=== PATIENT | female | born 1960 | race Caucasian/White ===

== ENCOUNTER 2017-08-30 00:51 | Observation (INO) | payer BC ==
[2017-08-30] VITALS (7 sets, daily range): BP systolic 123–185; BP diastolic 82–112; PULSE 83–102; RESP 16–18; TEMP 97.4–97.9; O2SAT 95–98
[~2017-08-30] VITALS: Ht 172.7 cm; Wt 63.5 kg
[2017-08-30] MEDS ORDERED: VIST50CA PO (01:11)
[2017-08-30] MEDS ORDERED: SONA10CA5 PO (01:11)
[2017-08-30] MEDS ORDERED: GABA600T PO (01:11)
[2017-08-30] MEDS ORDERED: SODIUM CHLORIDE 0.9% FLUSH 10 ML FLUSH IVF PRN (01:30)
[2017-08-30] MEDS ORDERED: NITROGLYCERIN 0.4 MG SL 25 TABS/BTL SL ONE (01:30)
[2017-08-30] MEDS ORDERED: ASPIRIN 81 MG CHEW TAB PO ONE (01:30)
--- NOTE | 2017-08-30 01:35 | PD ---
HPI Chief Complaint: Chest Pain Time Seen by Provider: 01:16 Travel History International Travel<30 days: No Contact w/Intl Traveler<30days: No Traveled to known affect area: No History of Present Illness HPI The patient is a 57 year old female who presents to the [facility] emergency department with a history of chest pain that suddenly began around 9 PM today. She reports that she's had chest pain in the past related to anxiety , however this "felt unique compared to that". The patient reports that the chest pain is in the left side of her chest. She reports that it does not radiate. She reports that the pain was more severe and then slightly improved on arrival to the emergency department. She reports having shortness of breath associated with this. She denies having any diaphoresis. She reports that she did have nausea and vomiting 2 prior to arrival. The patient reports that she does have a history of hypertension and hyperlipidemia. She reports that she has not been taking her Lipitor recently. She reports that she last had a stress test done a few years ago. The patient additionally reports that she has been experiencing some indigestion. The patient incidentally also reports that she has a history of alcohol use for the first use time and 7 months over the last 48 hours. She reports that she relapsed related to increased family stress. She also took sleeping pills however she is unsure how many. On further questioning, she suspect that she has been taking up to 4 tablets of Sonata to try to help her sleep at night. She denies attempting to harm herself , however she does report having increased anxiety and depression and is interested in seeing a psychiatrist. She reports that she's had increased depression and anxiety for the last 90 days related to family stressors. He reports that she has been hospitalized in the past to a psychiatric unit related to anxiety. On arrival, the patient reports that her chest pain as a 4 out of 10 in severity. On review of systems, the patient denies any recent fevers, cough, congestion, neck pain,, abdominal pain, diarrhea, urinary symptoms, or neurologic symptoms. Dr. Sellers is her psychiatric nurse practitioner. [facility] Past Medical History Narrative Medical The patient's past medical history is significant for anxiety, insomnia, alcohol abuse, hypertension, hyperlipidemia. Depression: Yes Diminished Hearing: No Hypertension: Yes Past Surgical History Narrative Surgical The patient's past surgical history is significant for x3. Section: Yes (X3) Social History Alcohol Use: Yes (HX OF ETOH ABUSE. DRANK TONIGHT) Tobacco Use: No Substance Use: No Allergies-Medications (Allergen,Severity, Reaction): Coded Allergies: Penicillins (Verified Allergy, Mild, Hives, 08/30/17) Reported Meds & Prescriptions Reported Meds & Active Scripts Active Reported Gabapentin 600 Mg Tab 600 Mg PO BID Sonata (Zaleplon) 10 Mg Cap 10 Mg PO HS PRN Vistaril (Hydroxyzine Pamoate) 50 Mg Cap 100 Mg PO BID PRN Review of Systems Except as stated in HPI: all other systems reviewed are Neg General / Constitutional: No: Fever Eyes: No: Visual changes HENT: No: Headaches Cardiovascular: Positive: Chest Pain or Discomfort Respiratory: Positive: Shortness of Breath Gastrointestinal: Positive: Nausea, Vomiting, No: Abdominal Pain Genitourinary: No: Dysuria Musculoskeletal: No: Pain Skin: No Rash Neurologic: No: Weakness Psychiatric: Positive: Anxiety, Depression, Mood Disorder, Substance Abuse, No : Suicidal Ideations, Homicidal Ideation Endocrine: No: Polydipsia Hematologic/Lymphatic: No: Easy Bruising Physical Exam Narrative General: The patient is a well-developed well-nourished female in no acute distress. Head and Neck exam: Head is normocephalic atraumatic. Eyes: EOMI, pupils are equal round and reactive to light. Nose: Midline septum with pink mucous membranes Mouth: Dentition unremarkable. Moist mucus membranes. Posterior oropharynx is not erythematous. No tonsillar hypertrophy. Uvula midline. Airway patent. Neck: No palpable lymphadenopathy. No nuchal rigidity. No thyromegaly. Cardiovascular: Regular rate and rhythm without murmurs, gallops, or rubs. Lungs: Clear to auscultation bilaterally. No wheezes, rhonchi, or rales. Abdomen: Soft, without tenderness to palpation in all 4 quadrants of the abdomen. No guarding, rebound, or rigidity. Normal bowel sounds are audible. No tenderness on palpation of McBurney's point. Extremities: No clubbing, cyanosis, or edema. 2+ pulses in all 4 extremities. No calf tenderness on palpation. Back: No spinous process tenderness to palpation. No costovertebral angle tenderness to palpation. Neurologic Exam: Grossly nonfocal. Skin Exam: No rash noted. Intact skin that is warm and dry. Data Data Last Documented VS Vital Signs Date Time Temp Pulse Resp B/P (MAP) Pulse Ox O2 Delivery O2 Flow Rate FiO2 08/30/17 00:51 97.8 102 16 124/96 (105) 95 Room Air Orders Orders Electrocardiogram (08/30/17 01:21) B-Type Natriuretic Peptide (08/30/17 01:21) Ckmb (Isoenzyme) Profile (08/30/17 01:21) Complete Blood Count With Diff (08/30/17 01:21) Comprehensive Metabolic Panel (08/30/17:21) Magnesium (Mg) (08/30/17:21) Prothrombin Time / Inr (Pt) (08/30/17:21) Act Partial Throm Time (Ptt) (08/30/17:21) Troponin I (08/30/17:21) Lipase (08/30/17 01:21) Chest, Single Ap (08/30/17:21) Ecg Monitoring (08/30/17 01:21) Bilateral Bp Monitoring (08/30/17 01:21) Iv Access Insert/Monitor (08/30/17 01:21) Oximetry (08/30/17 01:21) Oxygen Administration (08/30/17 01:21) Aspirin Chew (Aspirin Chew) (08/30/17 01:30) Sodium Chloride 0.9% Flush (Ns Flush) (08/30/17 01:30) Nitroglycerin Sl (Nitrostat Sl) (08/30/17 01:30) CKMB (08/30/17 01:25) CKMB% (08/30/17 01:25) Chlordiazepoxide (Librium) (08/30/17 03:00) Pantoprazole Inj (Protonix Inj) (08/30/17 03:15) Sodium Chlor 0.9% 1000 Ml Inj (Ns 1000 M (08/30/17 03:15) Ondansetron Inj (Zofran Inj) (08/30/17 03:15) Thiamine Inj (Thiamine Inj) (08/30/17 03:15) Admit Order (Ed Use Only) (08/30/17 03:40) Consult Psychiatry (08/30/17 ) Labs Laboratory Tests Test 08/30/17 01:25 White Blood Count 8.9 TH/MM3 Red Blood Count 4.68 MIL/MM3 Hemoglobin 13.7 GM/DL Hematocrit 41.1 % Mean Corpuscular Volume 87.7 FL Mean Corpuscular Hemoglobin 29.2 PG Mean Corpuscular Hemoglobin Concent 33.3 % Red Cell Distribution Width 14.8 % Platelet Count 423 TH/MM3 Mean Platelet Volume 7.3 FL Neutrophils (%) (Auto) 66.4 % Lymphocytes (%) (Auto) 27.1 % Monocytes (%) (Auto) 4.4 % Eosinophils (%) (Auto) 1.0 % Basophils (%) (Auto) 1.1 % Neutrophils # (Auto) 5.9 TH/MM3 Lymphocytes # (Auto) 2.4 TH/MM3 Monocytes # (Auto) 0.4 TH/MM3 Eosinophils # (Auto) 0.1 TH/MM3 Basophils # (Auto) 0.1 TH/MM3 CBC Comment DIFF FINAL Differential Comment Prothrombin Time 10.6 SEC Prothromb Time International Ratio 1.0 RATIO Activated Partial Thromboplast Time 25.2 SEC Blood Urea Nitrogen 13 MG/DL Creatinine 0.80 MG/DL Random Glucose 107 MG/DL Total Protein 8.4 GM/DL Albumin 4.2 GM/DL Calcium Level 8.6 MG/DL Magnesium Level 2.3 MG/DL Alkaline Phosphatase 82 U/L Aspartate Amino Transf (AST/SGOT) 26 U/L Alanine Aminotransferase (ALT/SGPT) 25 U/L Total Bilirubin 0.4 MG/DL Sodium Level 136 MEQ/L Potassium Level 4.9 MEQ/L Chloride Level 102 MEQ/L Carbon Dioxide Level 25.6 MEQ/L Anion Gap 8 MEQ/L Estimat Glomerular Filtration Rate 74 ML/MIN Total Creatine Kinase 124 U/L Creatine Kinase MB LESS THAN 0.5 NG/ML Troponin I LESS THAN 0.02 NG/ML B-Type Natriuretic Peptide LESS THAN 2 PG/ML Lipase 97 U/L MDM Medical Decision Making Medical Screen Exam Complete: Yes Emergency Medical Condition: Yes Medical Record Reviewed: Yes Differential Diagnosis Acute coronary syndrome, versus gastritis, versus acid reflux, versus anxiety disorder Narrative Course During the course of the patients emergency department visit, the patients history, examination, and differential diagnosis were reviewed with the patient. The patient was placed on a cardiac cath rn with oximetry and frequent blood pressure monitoring. The patient had IV access obtained and blood work sent for analysis. The patient's placed on a cardiac cath rn with oximetry and blood pressure monitoring. An ECG was done on arrival. The patient's ECG reveals a sinus rhythm heart rate of 95, no acute ST segment elevation or depression, QRS duration is 86 ms, QTC 401 ms. The patient was initially provided aspirin 324 mg by mouth 1, sublingual nitroglycerin times one. The patient reports feeling anxious. The patient was given Librium 25 mg by mouth 1. Due to a suspected component of gastritis related to alcohol use the patient was given Protonix 40 mg IV. The patient was given normal saline 1 L IV fluid bolus, thiamine 100 mg IV, and Zofran 4 mg IV for nausea. The patients laboratory studies were reviewed and remarkable for a CBC that is within normal limits, CMP is remarkable for a glucose of 17, initial set of cardiac enzymes are negative, lipase 97, BNP less than 2, PT PTT within normal limits. Radiology studies were reviewed and remarkable for a chest x-ray that shows hyperinflation which may be seen with COPD, minimal left basilar atelectasis. The patient will be admitted to the chest pain center for rule out serial cardiac enzymes protocol followed by stress testing and she reports a history of hypertension, hyperlipidemia, and chest pain different from prior episodes of chest pain related to anxiety. The patient is requesting to see a psychiatrist. A psychiatric consultation will be placed while the patient is in the hospital. The patients results were discussed with the patient, including the plan of care. I explained that further testing and/ or monitoring is indicated based on the patients history, examination, and/ or laboratory findings. Therefore, I recommended admission for additional evaluation. The patient expressed understanding and was agreeable with this plan. The patient was admitted to the hospital in stable condition and sent to a bed under the care of chest pain center. Diagnosis Primary Impression: Chest pain, rule out acute myocardial infarction Additional Impressions: Depression Qualified Codes: F32.9 - Major depressive disorder, single episode, unspecified Anxiety Admitting Information Admitting Physician Requests: Nataly Guerrero MD Aug 30, 2017 01:35
[2017-08-30 01:38] LABS: AUTOMATED NEUTROPHIL # 5.9 TH/MM3 (1.8-7.7); BASOPHIL # 0.1 TH/MM3 (0-0.2); BASOPHIL % 1.1 % (0.0-2.0); EOSINOPHIL # 0.1 TH/MM3 (0-0.4); HEMATOCRIT 41.1 % (35.0-46.0); HEMO FLAGS DIFF FINAL; LYMPH % 27.1 % (9.0-44.0); LYMPHOCYTE # 2.4 TH/MM3 (1.0-4.8); MEAN CELL VOLUME 87.7 FL (80.0-100.0); MEAN CORPUSCULAR HEMOGLOBIN 29.2 PG (27.0-34.0); MEAN CORPUSCULAR HGB CONC 33.3 % (32.0-36.0); MONO % 4.4 % (0.0-8.0); NEUT % 66.4 % (16.0-70.0); PLATELET COUNT 423 TH/MM3 (150-450); RED BLOOD COUNT 4.68 MIL/MM3 (4.00-5.30); RED CELL DISTRIBUTION WIDTH 14.8 % (11.6-17.2); WHITE BLOOD COUNT 8.9 TH/MM3 (4.0-11.0)
[2017-08-30 01:49] LABS: APTT (PATIENT) 25.2 SEC (24.3-30.1); PROTHROMBIN TIME - PATIENT 10.6 SEC (9.8-11.6)
--- NOTE | 2017-08-30 02:16 | RADRPT ---
EXAM DATE/TIME: 08/30/2017 01:26 [facility] COMPARISON: No previous studies available for comparison. INDICATIONS : Short of breath. MEDICAL HISTORY : None. SURGICAL HISTORY : None. ENCOUNTER: Initial ACUITY: 1 day PAIN SCORE: 0/10 LOCATION: Bilateral chest FINDINGS: A single view of the chest demonstrates minimal left basilar density. Right lung clear. Heart normal size. Lungs are slightly hyperinflated. Osseous structures are intact. CONCLUSION: 1. Hyperinflation which can be seen with COPD. 2. Minimal left basilar atelectasis. Bernardo Pemberton MD on August 30, 2017 at 2:14 Board Certified Radiologist. This report was verified electronically.
[2017-08-30 02:17] LABS: ALKALINE PHOSPHATASE 82 U/L (45-117); ALT (GPT) 25 U/L (10-53); ANION GAP 8 MEQ/L (5-15); AST (GOT) 26 U/L (15-37); BICARBONATE 25.6 MEQ/L (21.0-32.0); BLOOD UREA NITROGEN 13 MG/DL (7-18); CHLORIDE 102 MEQ/L (98-107); CREATINE KINASE 124 U/L (26-192); GLOMERULAR FILTRATION RATE 74 ML/MIN (>89); MAGNESIUM 2.3 MG/DL (1.5-2.5); SODIUM (NA) 136 MEQ/L (136-145); TOTAL BILIRUBIN ADULT 0.4 MG/DL (0.2-1.0)
[2017-08-30 02:18] LABS: POTASSIUM 4.9 MEQ/L (3.5-5.1)
[2017-08-30 02:31] LABS: CKMB LESS THAN 0.5 NG/ML (0.5-3.6)
[2017-08-30] MEDS ORDERED: chlordiazePOXIDE 25 MG CAP PO STA (03:00)
[2017-08-30] MEDS ORDERED: PANTOPRAZOLE SODIUM 40 MG VIAL IV PUSH ONE (03:15)
[2017-08-30] MEDS ORDERED: SODIUM CHLOR 0.9% 1000 ML INJ 1,000 ML IV ONE (03:15)
[2017-08-30] MEDS ORDERED: ONDANSETRON HCL 4 MG/2 ML VIAL IV PUSH ONE (03:15)
[2017-08-30] MEDS ORDERED: THIAMINE INJ 100 MG in SODIUM CHLORIDE 0.9% INJ 100 ML IV ONE (03:15)
[2017-08-30] MEDS ORDERED: SODIUM CHLORIDE 0.9% FLUSH 10 ML FLUSH IV FLUSH PRN (05:00)
[2017-08-30] MEDS ORDERED: ACETAMINOPHEN 500 MG CPLT PO PRN (05:00)
[2017-08-30] MEDS ORDERED: chlordiazePOXIDE 25 MG CAP PO ONE (05:45)
[2017-08-30 06:30] LABS: CREATINE KINASE 62 U/L (26-192)
[2017-08-30] MEDS ORDERED: ADDE30XR PO (06:37)
[2017-08-30] MEDS ORDERED: DIOV160T3 PO (06:39)
[2017-08-30] MEDS ORDERED: SODIUM CHLORIDE 0.9% FLUSH 10 ML FLUSH IV FLUSH SCH (09:00)
[2017-08-30] MEDS ORDERED: VALSARTAN 160 MG TAB PO SCH (09:00)
[2017-08-30] MEDS ORDERED: NON-FORMULARY DRUG (Valsartan-Hydrochlorothiazide (Diovan Hct) 1 TAB) PO SCH (09:00)
[2017-08-30] MEDS ORDERED: KETOROLAC TROMETHAMINE 30 MG/ML (IVP) VIAL IVP ONE (09:00)
[2017-08-30] MEDS ORDERED: FAMOTIDINE 20 MG TAB PO SCH (09:00)
[2017-08-30] MEDS ORDERED: ALUMINUM/MAGNESIUM/SIMETH 30 ML CUP PO ONE (09:00)
[2017-08-30] MEDS ORDERED: HYDROCHLOROTHIAZIDE 12.5 MG CAP PO SCH (09:00)
[2017-08-30 10:09] LABS: CREATINE KINASE 64 U/L (26-192)
--- NOTE | 2017-08-30 10:15 | HHI.HP ---
HPI Primary Care Physician No Primary Care Physician Chief Complaint Chest pain History of Present Illness This is a 57-year-old female that presents to ED with a complaint of a right- sided chest discomfort. Has a hard time describing what felt like. She states it is still there. Hurts with movements. Hurts when someone presses on it. Maybe little short of breath and nauseous. She also states that for the past week she's had cold-like symptoms. She had body aches. She has had temperatures as 101. She's had a nonproductive cough. Coughing also worsens the discomfort. Denies history of CAD. Patient also states she's been very anxious lately. States she recently moved back to the area has been very stressed about that. She's been having a hard time sleeping. She took some extra sleepy medication yesterday to help her sleep. Thinks she may have taken 2 or 3. She also states she drank a lot of alcohol over the past weekend. States she had 4 small bottles of wine over the past weekend. States that is very unusual for her. Can't recall last time she drank. The ER dictation had mentioned that she was requesting he speak with a psychiatrist. I specifically asked the patient if she was having suicidal or homicidal thoughts and she responded "no." Repeats again that she has been feeling anxious. Review of Systems General: Patient denies fevers, chills recent, and recent travel HEENT: Patient denies headache, sore throat, difficulty swallowing. Cardiovascular: Has the chest discomfort as mentioned above. Denies sensation of heart beating rapidly or irregularly. No syncope. Diaphoresis. Respiratory: Little short of breath. Denies inspirational chest discomfort. Denies coughing wheezing or hemoptysis. GI: Initially a little nauseated. Patient denies vomiting, diarrhea, abdominal pain, bloody stools. Musculoskeletal: Patient denies joint pain or edema. Denies calf pain or edema. Neurovascular: Patient denies numbness, tingling, weakness in extremities. Denies headache. Endocrine: Denies polyuria and polydipsia. Hematologic: Denies easy bruising. Skin: Denies rash or itching. Past Family Social History Allergies: Coded Allergies: Penicillins (Verified Allergy, Mild, Hives, 08/30/17) Past Medical History Hypertension, insomnia, anxiety. Denies hyperlipidemia, diabetes, and known CAD. Past Surgical History 3. Reported Medications Reported Meds & Active Scripts Active Reported Diovan Hct (Valsartan-Hydrochlorothiazide) 160-12.5 Mg Tab 1 Tab PO DAILY Adderall Xr 24 HR (Amphetamine/Dextroamphetamine) 30 Mg Cap 30 Mg PO DAILY PRN Once daily in the morning. Gabapentin 600 Mg Tab 600 Mg PO BID Sonata (Zaleplon) 10 Mg Cap 10 Mg PO HS PRN Vistaril (Hydroxyzine Pamoate) 50 Mg Cap 100 Mg PO BID PRN Active Ordered Medications Current Medications Medications (Trade) Dose Ordered Sig/Kristine Route Start Time Stop Time Status Last Admin (NS Flush) 2 ml UNSCH PRN IVF 08/30/17 01:30 08/30/17 04:04 (NS Flush) 2 ml UNSCH PRN IV FLUSH 08/30/17 05:00 (NS Flush) 2 ml BID IV FLUSH 08/30/17 09:00 08/30/17 09:08 (Tylenol) 500 mg Q4H PRN PO 08/30/17 05:00 08/30/17 07:10 (Pepcid) 20 mg BID PO 08/30/17 09:00 08/30/17 09:08 (Diovan) 160 mg DAILY PO 08/30/17 09:00 08/30/17 09:07 (Microzide) 12.5 mg DAILY PO 08/30/17 09:00 08/30/17 09:08 Family History Denies family history of CAD. Social History Patient drank 4 small bottles of wine last night but states she cannot recall the last time she had alcohol prior to that. Denies tobacco abuse. Denies illicit drug use. Physical Exam Vital Signs Vital Signs Date Time Temp Pulse Resp B/P (MAP) Pulse Ox O2 Delivery O2 Flow Rate FiO2 08/30/17 09:46 98 21 08/30/17 07:48 97.9 89 18 138/94 (109) 98 08/30/17 06:20 97.4 97 18 166/103 (124) 98 185/112 (136) 08/30/17 05:30 08/30/17 05:09 21 08/30/17 04:04 96 16 146/91 (109) 98 Room Air 08/30/17 00:51 97.8 102 16 124/96 (105) 95 Room Air Physical Exam GENERAL: This is a well-nourished, well-developed patient, in no apparent distress. Patient speaks in clear complete sentences. Patient is pleasant. HEENT: Head is atraumatic and normocephalic. Neck is supple without lymphadenopathy and trachea is midline. No JVD or carotid bruits. CARDIOVASCULAR: Regular rate and rhythm without murmurs, gallops, or rubs. RESPIRATORY: Clear to auscultation. Breath sounds equal bilaterally. No wheezes , rales, or rhonchi. Chest wall is tender right of the sternum worsening the discomfort that brought her to the ED. No use of accessory muscles. GASTROINTESTINAL: Abdomen is nontender, nondistended. Abdomen soft. No obvious pulsatile mass or bruit. No CVA tenderness. Strong femoral pulses bilaterally. Normal bowel sounds in all quadrants. MUSCULOSKELETAL: Patient is moving upper and lower extremities freely. No calf tenderness or edema, no Homans sign. Strong pulses in upper and lower extremities. NEUROLOGICAL: Patient is alert and oriented. Cranial nerves 2-12 are grossly intact. No focal deficits and speech is clear. SKIN: No rash and turgor is normal. Laboratory Laboratory Tests Test 08/30/17 01:25 08/30/17 05:25 08/30/17 08:35 White Blood Count 8.9 Red Blood Count 4.68 Hemoglobin 13.7 Hematocrit 41.1 Mean Corpuscular Volume 87.7 Mean Corpuscular Hemoglobin 29.2 Mean Corpuscular Hemoglobin Concent 33.3 Red Cell Distribution Width 14.8 Platelet Count 423 Mean Platelet Volume 7.3 Neutrophils (%) (Auto) 66.4 Lymphocytes (%) (Auto) 27.1 Monocytes (%) (Auto) 4.4 Eosinophils (%) (Auto) 1.0 Basophils (%) (Auto) 1.1 Neutrophils # (Auto) 5.9 Lymphocytes # (Auto) 2.4 Monocytes # (Auto) 0.4 Eosinophils # (Auto) 0.1 Basophils # (Auto) 0.1 CBC Comment DIFF FINAL Differential Comment Prothrombin Time 10.6 Prothromb Time International Ratio 1.0 Activated Partial Thromboplast Time 25.2 Blood Urea Nitrogen 13 Creatinine 0.80 Random Glucose 107 Total Protein 8.4 Albumin 4.2 Calcium Level 8.6 Magnesium Level 2.3 Alkaline Phosphatase 82 Aspartate Amino Transf (AST/SGOT) 26 Alanine Aminotransferase (ALT/SGPT) 25 Total Bilirubin 0.4 Sodium Level 136 Potassium Level 4.9 Chloride Level 102 Carbon Dioxide Level 25.6 Anion Gap 8 Estimat Glomerular Filtration Rate 74 Total Creatine Kinase 124 62 Creatine Kinase MB LESS THAN 0.5 Troponin I LESS THAN 0.02 LESS THAN 0.02 B-Type Natriuretic Peptide LESS THAN 2 Lipase 97 D-Dimer Quantitative (PE/DVT) 0.33 Result Diagram: 08/30/1712408/30/17124 Imaging Last 48 hours Impressions Chest X-Ray 08/30/17120 Signed Impressions: Service Date/Time: Wednesday, August 30, 2017 01:26 - CONCLUSION: 1. Hyperinflation which can be seen with COPD. 2. Minimal left basilar atelectasis. Bernardo Pemberton MD Course EKGs are sinus rhythm without significant ST segment depressions or elevations. Caprini VTE Risk Assessment Caprini VTE Risk Assessment: No/Low Risk (score <= 1) Caprini Risk Assessment Model Point Value = 1 Point Value = 2 Point Value = 3 Point Value = 5 Age 41-60 Minor surgery BMI > 25 kg/m2 Swollen legs Varicose veins or History of unexplained or recurrent spontaneous Oral contraceptives or hormone replacement Sepsis (< 1 month) Serious lung disease, including pneumonia (< 1 month) Abnormal pulmonary function Acute myocardial infarction Congestive heart failure (< 1 month) History of inflammatory bowel disease Medical patient at bed rest Age 61-74 Arthroscopic surgery Major open surgery (> 45 min) Laparoscopic surgery (> 45 min) Malignancy Confined to bed (> 72 hours) Immobilizing plaster cast Central venous access Age >= 75 History of VTE Family history of VTE Factor V Leiden Prothrombin [id number] Lupus anticoagulant Anticardiolipin antibodies Elevated serum homocysteine Heparin-induced thrombocytopenia Other congenital or acquired thrombophilia Stroke (< 1 month) Elective arthroplasty Hip, pelvis, or leg fracture Acute spinal cord injury (< 1 month) Prophylaxis Regimen Total Risk Factor Score Risk Level Prophylaxis Regimen 0-1 Low Early ambulation 2 Moderate Order ONE of the following: *Sequential Compression Device (SCD) *Heparin 5000 units SQ BID 3-4 Higher Order ONE of the following medications: *Heparin 5000 units SQ TID *Enoxaparin/Lovenox 40 mg SQ daily (WT < 150 kg, CrCl > 30 mL/min) *Enoxaparin/Lovenox 30 mg SQ daily (WT < 150 kg, CrCl > 10-29 mL/min) *Enoxaparin/Lovenox 30 mg SQ BID (WT < 150 kg, CrCl > 30 mL/min) AND/OR *Sequential Compression Device (SCD) 5 or more Highest Order ONE of the following medications: *Heparin 5000 units SQ TID (Preferred with Epidurals) *Enoxaparin/Lovenox 40 mg SQ daily (WT < 150 kg, CrCl > 30 mL/min) *Enoxaparin/Lovenox 30 mg SQ daily (WT < 150 kg, CrCl > 10-29 mL/min) *Enoxaparin/Lovenox 30 mg SQ BID (WT < 150 kg, CrCl > 30 mL/min) AND *Sequential Compression Device (SCD) Assessment and Plan Assessment and Plan * Atypical chest pain: Patient has had serial cardiac enzymes and EKGs for ruling out purposes. Her symptoms appear to be musculoskeletal. She was seen by Dr. Matt Lopez of cardiology in the chest and center. No stress testing at this time. Will give Toradol for discomfort and have her follow-up with her PCP. Patient is stable at this time. And will be discharged after she has been cleared by psychiatry. * Anxiety: Patient has requested psych consultation and one has been ordered in the ED. This is pending. * Hypertension: Continue current medication. Patient is stable at this time. She is agreeable to this plan. Vega Burnett Aug 30, 2017 10:15
--- NOTE | 2017-08-30 12:23 | PD.PSY.CON ---
Provisional Diagnosis Admission Date Aug 30, 2017 at 03:45 [place] I. Adjustment disorder with depressed mood and anxiety [place] II. Deferred [place] III. Hypertension [place] IV. Recently moved to [place] from [place] V. 56 History of Present Illness Service Psychiatry Consult Requested By ER team Reason for Consult Depressive symptoms Primary Care Physician No Primary Care Physician HPI The patient is a 57-year-old woman, domiciled with her fianc aline [place], unemployed, mother of 3 kids, who recently moved to [place] from [place], with psychiatric history of ADHD, depression, anxiety, no previous psychiatric hospitalizations, patient has been multiple psychotropics in the past, no previous suicidal attempts, alcohol use disorder in sustained full remission, recent relapse 2 days ago, medical history hypertension, who presents to ED with a complaint of a right-sided chest discomfort. Has a hard time describing what felt like. She states it is still there. Hurts with movements. Hurts when someone presses on it. Maybe little short of breath and nauseous. She also states that for the past week she's had cold-like symptoms. She had body aches. She has had temperatures as 101. She's had a nonproductive cough. Coughing also worsens the discomfort. Denies history of CAD. Patient also states she's been very anxious lately. States she recently moved back to the area has been very stressed about that. She's been having a hard time sleeping. She took some extra sleepy medication yesterday to help her sleep. Thinks she may have taken 2 or 3. She also states she drank a lot of alcohol over the past weekend. States she had 4 small bottles of wine over the past weekend. States that is very unusual for her. Can't recall last time she drank. The ER dictation had mentioned that she was requesting he speak with a psychiatrist. I specifically asked the patient if she was having suicidal or homicidal thoughts and she responded "no." Repeats again that she has been feeling anxious. On psychiatric evaluation today patient is calm, cooperative and pleasant. She was accompanied with her fianc. But, she wished to be seen alone. Patient reports that the reason she is in the hospital is because she has recently relapsed in alcohol. Patient says that she was sober for 17 years after having problem with alcohol. She has recently moved to [place] to live with her fianc from [place]. Patient reports that the transition has been stressful, her fianc is very supportive, but at the same time they have been confronting "some issues". "These issues" added to the fact her junk his brother is in [place] has been giving her some anxiety. She also reports that moving from [place] to [place] has been kind of difficult, he had she doesn't have any support, no many family members, and many friends "It has been a process". But, the patient denies hopelessness, she denies helplessness, she denies worthlessness, she denies suicidal and homicidal ideation, she denies visual and auditory hallucinations. In the past has been diagnosed with depression and anxiety, she took Zoloft, Seroquel, gabapentin. Patient will try to control her anxiety without medications at this moment. Patient feels guilty about recent relapse after 17 years of sobriety. She denies the use of illicit drugs. She is open for psychotherapy in outpatient psychiatric care. Patient is fully oriented 3, no progression of consciousness, no attention deficit, no gross cognitive impairment are present during this evaluation. Review of Systems Constitutional: DENIES: Diaphoretic episodes, Fatigue, Fever, Weight gain, Weight loss, Chills, Dizziness, Change in appetite, Night Sweats Endocrine: DENIES: Abnorml menstrual pattern, Heat/cold intolerance, Polydipsia , Polyuria, Polyphagia Ears, nose, mouth, throat: DENIES: Tinnitus, Hearing loss, Vertigo, Nasal discharge, Oral lesions, Throat pain, Hoarseness, Ear Pain, Running Nose, Epistaxis, Sinus Pain, Toothache, Odynophagia Respiratory: DENIES: Apneas, Cough, Snoring, Wheezing, Hemoptysis, Sputum production, Shortness of breath Cardiovascular: DENIES: Chest pain, Palpitations, Syncope, Dyspnea on Exertion , PND, Lower Extremity Edema, Orthopnea, Claudication Gastrointestinal: DENIES: Abdominal pain, Black stools, Bloody stools, Constipation, Diarrhea, Nausea, Vomiting, Difficulty Swallowing, Anorexia Genitourinary: DENIES: Abnormal vaginal bleeding, Dysmenorrhea, Dyspareunia, Sexual dysfunction, Urinary frequency, Urinary incontinence, Urgency, Hematuria , Dysuria, Nocturia, Vaginal discharge Musculoskeletal: DENIES: Joint pain, Muscle aches, Stiffness, Joint Swelling, Back pain, Neck pain Integumentary: DENIES: Abnormal pigmentation, Pruritus, Rash, Nail changes, Breast masses, Breast skin changes, Nipple discharge Hematologic/lymphatic: DENIES: Bruising, Lymphadenopathy Immunologic/allergic: DENIES: Eczema, Urticaria Neurologic: DENIES: Abnormal gait, Headache, Localized weakness, Paresthesias, Seizures, Speech Problems, Tremor, Poor Balance Psychiatric: DENIES: Anxiety, Confusion, Mood changes, Depression, Hallucinations, Agitation, Suicidal Ideation, Homicidal Ideation, Delusions Past Family Social History Coded Allergies: Penicillins (Verified Allergy, Mild, Hives, 08/30/17) Reported Medications Valsartan-Hydrochlorothiazide (Diovan Hct) 160-12.5 Mg Tab, 1 TAB PO DAILY for Blood Pressure Management, #30 TAB 0 Refills 08/30/17 Amphetamine-Dextroamphetamine ER 24 HR (Adderall Xr 24 HR) 30 Mg Cap, 30 MG PO DAILY Y for Attention Management, #30 CAP 0 Refills Once daily in the morning. 08/30/17 Gabapentin (Gabapentin) 600 Mg Tab, 600 MG PO BID, #60 TAB 0 Refills 08/30/17 Zaleplon (Sonata) 10 Mg Cap, 10 MG PO HS Y for INSOMNIA, CAP 0 Refills 08/30/17 Hydroxyzine Pamoate (Vistaril) 50 Mg Cap, 100 MG PO BID Y for ANXIETY, CAP 0 Refills 08/30/17 Current Medications Medications (Trade) Dose Ordered Sig/Kristine Route Start Time Stop Time Status Last Admin (NS Flush) 2 ml UNSCH PRN IVF 08/30/17 01:30 08/30/17 04:04 (NS Flush) 2 ml UNSCH PRN IV FLUSH 08/30/17 05:00 (NS Flush) 2 ml BID IV FLUSH 08/30/17 09:00 08/30/17 09:08 (Tylenol) 500 mg Q4H PRN PO 08/30/17 05:00 08/30/17 07:10 (Pepcid) 20 mg BID PO 08/30/17 09:00 08/30/17 09:08 (Diovan) 160 mg DAILY PO 08/30/17 09:00 08/30/17 09:07 (Microzide) 12.5 mg DAILY PO 08/30/17 09:00 08/30/17 09:08 Family Psych History Her father suffer of depression Social History Patient was born and raised in [place], she lives in [place] for several years , has moved to [place] about 5 months ago, she lives with her fianc, she has 3 kids, she is unemployed, she supported by savings, her highest level of education is a college degree Patient's Strengths (min. 2) Verbal communication Physical Exam No tremors, no EPS, no withdrawal symptoms, no gait disturbances, no psychomotor agitation or retardation Vital Signs Vital Signs Date Time Temp Pulse Resp B/P (MAP) Pulse Ox O2 Delivery O2 Flow Rate FiO2 08/30/17 11:31 97.8 83 16 123/82 (96) 96 08/30/17 09:46 21 08/30/17 04:04 Room Air I/O 08/30/17 08/30/17 08/31/17 08:00 16:00 00:00 Intake Total 1101 ml Balance 1101 ml Lab Results Test 08/30/17 01:25 08/30/17 05:25 08/30/17 08:35 White Blood Count 8.9 TH/MM3 Red Blood Count 4.68 MIL/MM3 Hemoglobin 13.7 GM/DL Hematocrit 41.1 % Mean Corpuscular Volume 87.7 FL Mean Corpuscular Hemoglobin 29.2 PG Mean Corpuscular Hemoglobin Concent 33.3 % Red Cell Distribution Width 14.8 % Platelet Count 423 TH/MM3 Mean Platelet Volume 7.3 FL Neutrophils (%) (Auto) 66.4 % Lymphocytes (%) (Auto) 27.1 % Monocytes (%) (Auto) 4.4 % Eosinophils (%) (Auto) 1.0 % Basophils (%) (Auto) 1.1 % Neutrophils # (Auto) 5.9 TH/MM3 Lymphocytes # (Auto) 2.4 TH/MM3 Monocytes # (Auto) 0.4 TH/MM3 Eosinophils # (Auto) 0.1 TH/MM3 Basophils # (Auto) 0.1 TH/MM3 CBC Comment DIFF FINAL Differential Comment Prothrombin Time 10.6 SEC Prothromb Time International Ratio 1.0 RATIO Activated Partial Thromboplast Time 25.2 SEC Blood Urea Nitrogen 13 MG/DL Creatinine 0.80 MG/DL Random Glucose 107 MG/DL Total Protein 8.4 GM/DL Albumin 4.2 GM/DL Calcium Level 8.6 MG/DL Magnesium Level 2.3 MG/DL Alkaline Phosphatase 82 U/L Aspartate Amino Transf (AST/SGOT) 26 U/L Alanine Aminotransferase (ALT/SGPT) 25 U/L Total Bilirubin 0.4 MG/DL Sodium Level 136 MEQ/L Potassium Level 4.9 MEQ/L Chloride Level 102 MEQ/L Carbon Dioxide Level 25.6 MEQ/L Anion Gap 8 MEQ/L Estimat Glomerular Filtration Rate 74 ML/MIN Total Creatine Kinase 124 U/L 62 U/L 64 U/L Creatine Kinase MB LESS THAN 0.5 NG/ML Troponin I LESS THAN 0.02 NG/ML LESS THAN 0.02 NG/ML LESS THAN 0.02 NG/ML B-Type Natriuretic Peptide LESS THAN 2 PG/ML Lipase 97 U/L D-Dimer Quantitative (PE/DVT) 0.33 MG/L FEU Mental Status Examination Appearance: Appropriate Consciousness: Alert Orientation: x4 Motor Activity: Normal gait Speech: Unremarkable Language: Adequate Fund of Knowledge: Adequate Attention and Concentration: Adequate Memory: Unremarkable Mood: Appropriate Affect: Appropriate Thought Process & Associations: Intact Thought Content: Appropriate Hallucination Type: None Delusion Type: None Suicidal Ideation: No Suicidal Plan: No Suicidal Intention: No Homicidal Ideation: No Homicidal Plan: No Homicidal Intention: No Insight: Adequate Judgment: Adequate Assessment & Plan Problem List: (1) Adjustment disorder with mixed anxiety and depressed mood ICD Codes: F43.23 - Adjustment disorder with mixed anxiety and depressed mood Assessment & Plan: At the moment of the psychiatric evaluation the patient does reports symptomatology congruent with mild to moderate depression and anxiety in the context of recent disagreement/confrontation with her fianc, also with a slow transition after moving from [place] to [place] and adjusting with a new environment. This described anxiety and depression has been a stressful to the point the patient had relapsed in alcohol after 17 years of sobriety. However, patient seems to be very insightful about the source of anxiety and depression. She denies hopelessness, she denies helplessness, she denies worthlessness, she denies anhedonia, suicidal and homicidal ideation. She denies visual and auditory hallucinations. Patient has been diagnosed with depression and anxiety in the past, she has been in treatment, no admissions, no previous suicidal attempts, patient seems to be committed to continue trying to control her emotions/feelings with self coping mechanisms and try to avoid psychotropics at this moment. However patient is open to explore outpatient psychiatric care. During this evaluation brief supportive psychotherapy, motivation and psychoeducation were provided. She will be provided with referral material for outpatient services. She does not meet criteria for psychiatric admission at this moment. Consult appreciated. Assessment & Plan Estimated LOS: Olegario Vincent MD Aug 30, 2017 12:23
--- NOTE | 2017-08-30 12:24 | HHI.DCPOC ---
Discharge Care Plan Diagnosis: (1) Hypertension (2) Anxiety (3) Chest pain, atypical Goals to Promote Your Health * To prevent worsening of your condition and complications * To maintain your health at the optimal level Directions to Meet Your Goals Take your medications as prescribed Follow your dietary instruction Follow activity as directed Keep your appointments as scheduled Take your immunizations and boosters as scheduled If your symptoms worsen call your PCP, if no PCP go to Urgent Care Center or Emergency Room Smoking is Dangerous to Your Health. Avoid second hand smoke Call the 24-hour hour crisis hotline for domestic abuse at [facility] Aug 30, 2017 12:24
--- NOTE | 2017-08-30 13:57 | EKG ---
Date Performed: 08/30/2017 Time Performed: 05:24:36 PTAGE: 57 years EKG: Sinus rhythm NORMAL ECG PREVIOUS TRACING : 08/30/2017 01.16 Since previous tracing, no significant change noted DOCTOR: Matt Lopez Interpretating Date/Time 08/30/2017 13:56:45
--- NOTE | 2017-08-30 13:58 | EKG ---
Date Performed: 08/30/2017 Time Performed: 01:16:50 PTAGE: 57 years EKG: Sinus rhythm NORMAL ECG NO PREVIOUS TRACING DOCTOR: Matt Lopez Interpretating Date/Time 08/30/2017 13:57:17
[2017-08-30] MEDS ORDERED: ZOLPIDEM TARTRATE 5 MG TAB PO PRN (15:15)
[2017-08-30] MEDS ORDERED: ALUMINUM/MAGNESIUM/SIMETH 30 ML CUP PO PRN (15:15)
[2017-08-30] MEDS ORDERED: MAGNESIUM HYDROXIDE SUSP 30 ML CUP PO PRN (15:15)
[2017-08-30] MEDS ORDERED: ACETAMINOPHEN 325 MG TAB PO PRN (15:15)
[2017-08-30] MEDS ORDERED: PILL SPLITTER OTHER PRN (15:30)
[2017-08-30] MEDS ORDERED: NICOTINE 21 MG/24 HR PATCH T-DERMAL SCH (16:00)
[2017-08-30] MEDS ORDERED: SERTRALINE HCL 50 MG TAB PO SCH (16:00)
[2017-08-30] MEDS ORDERED: REMOVE OLD NICODERM (NICOTINE) PATCH T-DERMAL SCH (21:00)
== END 2017-08-30 15:49 ==
LOC: NEPC 00:51 → NEDA 03:45 → NEPGCP 06:16
DX: R07.9 Chest pain, unspecified (principal); F41.9 Anxiety disorder, unspecified; I10 Essential (primary) hypertension; R06.02 Shortness of breath; R11.2 Nausea with vomiting, unspecified; E78.5 Hyperlipidemia, unspecified; K30 Functional dyspepsia; F32.9 Major depressive disorder, single episode, unspecified; G47.00 Insomnia, unspecified; F10.10 Alcohol abuse, uncomplicated; Z79.899 Other long term (current) drug therapy; R05 Cough
CPT/HCPCS: 71010; 80053; 82550; 82552; 83690; 83735; 83880; 84484; 85025; 85379; 85610; 85730; 93005; 96365; 96375; 96376; 99285; C9113; G0378; J1885; J2405; J3411; J7030

== ENCOUNTER 2017-08-30 15:56 | Inpatient (IN) | payer BC ==
[2017-08-30 15:45] VITALS: BP 162/106; PULSE 84; RESP 18; TEMP 98; O2SAT 98
[~2017-08-30 15:56] MED LIST: ADDE30XR PO; DIOV160T3 PO; GABA600T PO; SONA10CA5 PO; VIST50CA PO
[2017-08-30] MEDS ORDERED: MAGNESIUM HYDROXIDE SUSP 30 ML CUP PO PRN (17:00)
[2017-08-30] MEDS ORDERED: LORazepam 2 MG/ML VIAL IV PUSH PRN ×4 (17:00→17:30)
[2017-08-30] MEDS ORDERED: FLUMAZENIL 0.5 MG/5 ML VIAL IV PUSH PRN (17:00)
[2017-08-30] MEDS ORDERED: LORazepam 0.5 MG TAB PO PRN (17:00)
[2017-08-30] MEDS ORDERED: LORazepam 2 MG/ML VIAL IM PRN ×2 (17:00→17:30)
[2017-08-30] MEDS ORDERED: REMOVE OLD NICODERM (NICOTINE) PATCH T-DERMAL SCH (17:00)
[2017-08-30] MEDS ORDERED: NICOTINE 21 MG/24 HR PATCH T-DERMAL SCH (17:00)
[2017-08-30] MEDS ORDERED: LORazepam 2 MG TAB PO PRN (17:30)
[2017-08-30] MEDS: SERTRALINE HCL 50 MG TAB PO SCH (17:36)
[2017-08-30] MEDS: LORazepam 1 MG TAB PO PRN ×2 (17:46→21:05)
[2017-08-30] MEDS ORDERED: PILL SPLITTER OTHER PRN (19:00)
[2017-08-30] MEDS: GABAPENTIN 300 MG CAP PO SCH (20:28)
[2017-08-30] MEDS ORDERED: ZALEPLON 10 MG CAP PO SCH (21:00)
[2017-08-30] MEDS: ZOLPIDEM TARTRATE 10 MG TAB PO SCH (21:05)
[2017-08-31 05:30] VITALS: BP 110/64; PULSE 72; RESP 17; TEMP 98; O2SAT 98
[2017-08-31] MEDS: LORazepam 1 MG TAB PO PRN ×3 (07:53→21:46)
[2017-08-31] MEDS: VALSARTAN 160 MG TAB PO SCH (08:54)
[2017-08-31] MEDS: HYDROCHLOROTHIAZIDE 12.5 MG CAP PO SCH (08:56)
[2017-08-31] MEDS: SERTRALINE HCL 50 MG TAB PO SCH (08:56)
[2017-08-31] MEDS: GABAPENTIN 300 MG CAP PO SCH ×2 (08:56→21:46)
[2017-08-31 11:40] LABS: BICARBONATE 25.7 MEQ/L (21.0-32.0); BLOOD UREA NITROGEN 16 MG/DL (7-18); CALCIUM 8.6 MG/DL (8.5-10.1); CHLORIDE 104 MEQ/L (98-107); CHOLESTEROL 240 MG/DL (120-200); CHOLESTEROL/ HDL RATIO 3.01 RATIO; CREATININE 0.84 MG/DL (0.50-1.00); GLOMERULAR FILTRATION RATE 70 ML/MIN (>89); GLUCOSE,RANDOM 86 MG/DL (74-106); HDL CHOLESTEROL 79.5 MG/DL (40.0-60.0); LDL CHOLESTEROL 125 MG/DL (0-99); SODIUM (NA) 138 MEQ/L (136-145); TRIGLYCERIDES 177 MG/DL (42-150)
--- NOTE | 2017-08-31 11:54 | PD.TTN ---
Patient Problems 1. Discharge planning 2. Medication compliance 3. Knowledge deficit 4. Lack of coping skills Progress Toward Goals Provider Present: Dr. Neal Rose Provider Input: Patient is new admission to unit here for medication management. Nurse(s) Input: Patient is ioslative and adjusting to new unit. Psychiatric Counselors Present: EDGARD Mullins Psych Therapist Input: Patient is cooperative and calm and is here for voluntary for medication medication. Group Spec/RT/OT/MATHEWS Present: Jhony Medina OT Group Spec/RT/OT/MATHEWS Input: New to unit. Karlie Ulloa [facility] Aug 31, 2017 11:54
--- NOTE | 2017-08-31 11:54 | PD.TTN ---
Patient Problems 1. Discharge planning 2. Medication compliance 3. Knowledge deficit 4. Lack of coping skills Progress Toward Goals Provider Present: Dr. Neal Rose Provider Input: Patient is new admission to unit here for medication management. Nurse(s) Input: Patient is ioslative and adjusting to new unit. Psychiatric Counselors Present: EDGARD Mullins Psych Therapist Input: Patient is cooperative and calm and is here for voluntary for medication medication. Group Spec/RT/OT/MATHEWS Present: Jhony Medina OT Group Spec/RT/OT/MATHEWS Input: New to unit. Karlie [facility]lloa [facility] Aug 31, 2017 11:54
--- NOTE | 2017-08-31 11:54 | PD.TTN ---
Patient Problems 1. Discharge planning 2. Medication compliance 3. Knowledge deficit 4. Lack of coping skills Progress Toward Goals Provider Present: Dr. Neal Rose Provider Input: Patient is new admission to unit here for medication management. Nurse(s) Input: Patient is ioslative and adjusting to new unit. Psychiatric Counselors Present: EDGARD Mullins Psych Therapist Input: Patient is cooperative and calm and is here for voluntary for medication medication. Group Spec/RT/OT/MATHEWS Present: Jhony Medina OT Group Spec/RT/OT/MATHEWS Input: New to unit. Karlie [facility]lloa [facility] Aug 31, 2017 11:54
[2017-08-31 16:04] VITALS: BP 126/86; PULSE 97; RESP 18; TEMP 98.3; O2SAT 98
--- NOTE | 2017-08-31 16:25 | HHI.HP ---
Provisional Diagnosis Admission Date Aug 30, 2017 at 15:56 Certification of Person's Competence To Provide Express and Informed Consent I have personally examined Henny Sebastian , a person being served at [facility] on, Aug 31, 2017 16:06. Express and informed consent means consent voluntarily given in writing, by a competent person, after sufficient explanation and disclosure of the subject matter involved to enable the person to make a knowing and willful decision without any element of force, fraud, deceit, duress, or other form of constraint or coercion. This person is 18 years of age or older, is not now known to be incompetent to consent to treatment with a guardian advocate, and does not have a health care surrogate or proxy currently making medical treatment decisions. I have found this person to be one of the following: [x] Competent to provide express and informed consent, as defined above, for voluntary admission to this facility and is competent to provide express and informed consent for treatment. He/she has the consistent capacity to make well reasoned, willful, and knowing decisions concerning his or her medical or mental health treatment. The person fully and consistently understands the purpose of the admission for examination/placement and is fully capable of personally exercising all rights assured under [place] Incompetent to provide express and informed consent to voluntary admission, and this is incompetent to provide express and informed consent to treatment. The person must be transferred to involuntary status and a petition for a guardian advocate filed with the Circuit Court. [] Refusing to provide express and informed consent to voluntary admission but is competent to provide express and informed consent for treatment. The person must be discharged or transferred to involuntary status. Form shall be completed within 24 hours of a person's arrival at the receiving facility and filed in the clinical record of each person: 1. Admitted on a voluntary basis 2. Permitted to provide express and informed consent to his/her own treatment 3. Allowed to transfer from involuntary to voluntary status 4. Prior to permitting a person to consent to his or her own treatment after having been previously found incompetent to consent to treatment. History of Present Illness Capacity: Has Capacity HPI Patient is a 57-year-old woman, domiciled with fianc, unemployed with 3 adult children recently moved to [place] 4 months ago from [place], with past psychiatric history of depression, anxiety, alcohol use disorder, ADHD , with multiple psychiatric hospitalizations, no previous suicide attempts and was hospitalized at [facility] for chest pain and was seen by psychiatry consult team on 08/30/17 for worsening depressive symptoms in the context of recent relapse of alcohol use after period of sobriety of 17 years which patient agreed to voluntary psychiatric admission for stabilization. Patient was transferred to the inpatient psychiatry unit for further evaluation and management. Patient found ambulating around the unit was calm and cooperative with interview today. Patient was seen with nurse and was noted to be very tearful during interview today. Patient states that she had been drinking daily for the past week as relapse from a 7 month period of sobriety. Patient reports that her longest period of sobriety has been 17 years previously. She states that her last drink was 23 days ago prior to admission and had about a glass of wine. Patient states that she was feeling overwhelmed with current stressors including feeling homesick being away from her family in [place], recent with her fianc, feeling that things are "building up" with issues with her children and being worried about them. Patient states that she has a strange relationship of her sons has not spoken to for the past 2-3 years. She states she is trying to find a weekend which her son-in-law has arranged for her to meet up with her son come visit. Patient stated he feels guilty and per recent relapse appears of disappointment perpetually found out that she continues to drink. States that she feels support per her fianc would like to be better state of physical mental health for her family. Patient reports having a difficult with sleep along with decreased energy, appetite, concentration, along with feeling depressed, feeling helpless and hopeless with vague thoughts of wanting to be alive, stating "I'm at my wits end ". Patient reports that recently she had been more isolative. Currently patient states that she would like to feel better, regain her sobriety and no longer feeling depressed. Patient denies any perceptual disturbances or delusions. Past psychiatric history: Pre-psychiatric diagnosis depression, anxiety, ADHD, current use disorder. Previous multiple psychiatric hospitalizations, no previous suicide attempts. His outpatient psychiatrist provider Dr. Rojas she was a for the past 6 months, last seen 3 weeks ago. Patient reports also having us counselor and therapist. Previous psychiatric medication trials include Zoloft, Seroquel, gabapentin. Substance use history: Alcohol use daily for the past 7 days related to be for the last some wine. Longest period of sobriety was 17 years with previous episodes of relapse, last period of sobriety was 7 months prior to her recent relapse 1 week ago. Patient reports previous detox and rehabilitation program last being in April 2015. Patient reports previous use of marijuana use which she states she used only twice last being 2013. Patient denies any use of any other substance. Past medical history: Hypertension allergies: Penicillin Social history: Living with michele, unemployed has 3 adult children, with [place] 4 months ago from [place]. Highest education is college (3 years). Legal history, denies Collateral contact: Chago (michele) [phone] Review of Systems Except as stated in HPI: all other systems reviewed are Neg Past Psych History Violence risk - others (6 mos) Low Violence risk - self (6 mos) Low Substance Abuse History Drugs/Alcohol past 12 months Alcohol use daily for the past 7 days related to be for the last some wine. Longest period of sobriety was 17 years with previous episodes of relapse, last period of sobriety was 7 months prior to her recent relapse 1 week ago. Patient reports previous detox and rehabilitation program last being in April 2015. Patient reports previous use of marijuana use which she states she used only twice last being 2013. Patient denies any use of any other substance. Past Family Social History Coded Allergies: Penicillins (Verified Allergy, Mild, Hives, 08/30/17) Reported Medications Valsartan-Hydrochlorothiazide (Diovan Hct) 160-12.5 Mg Tab, 1 TAB PO DAILY for Blood Pressure Management, #30 TAB 0 Refills 08/30/17 Amphetamine-Dextroamphetamine ER 24 HR (Adderall Xr 24 HR) 30 Mg Cap, 30 MG PO DAILY Y for Attention Management, #30 CAP 0 Refills Once daily in the morning. 08/30/17 Gabapentin (Gabapentin) 600 Mg Tab, 600 MG PO BID, #60 TAB 0 Refills 08/30/17 Zaleplon (Sonata) 10 Mg Cap, 10 MG PO HS Y for INSOMNIA, CAP 0 Refills 08/30/17 Hydroxyzine Pamoate (Vistaril) 50 Mg Cap, 100 MG PO BID Y for ANXIETY, CAP 0 Refills 08/30/17 Current Medications Medications (Trade) Dose Ordered Sig/Kristine Route Start Time Stop Time Status Last Admin (Ativan) 1 mg Q6H PRN PO 08/30/17 17:03 08/31/17 14:15 (Ativan Inj) 1 mg Q6H PRN IM 08/30/17 17:30 (Tylenol) 650 mg Q4H PRN PO 08/30/17 17:00 (Milk Of Magnesia Liq) 30 ml DAILY PRN PO 08/30/17 17:00 (Mag-Al Plus Susp Liq) 30 ml Q6H PRN PO 08/30/17 17:00 (Romazicon Inj) 0.2 mg Q1M PRN IV PUSH 08/30/17 17:00 (Ativan) 1 mg Q4H PRN PO 08/30/17 17:30 08/30/17 21:05 (Ativan Inj) 1 mg Q4H PRN IV PUSH 08/30/17 17:00 (Ativan) 2 mg Q2H PRN PO 08/30/17 17:30 (Ativan Inj) 2 mg Q2H PRN IV PUSH 08/30/17 17:30 (Ativan Inj) 2 mg Q1H PRN IV PUSH 08/30/17 17:30 (Ativan Inj) 2 mg Q15M PRN IV PUSH 08/30/17 17:30 (Pill Splitter) 1 ea UNSCH PRN OTHER 08/30/17 19:00 (Diovan) 160 mg DAILY PO 08/31/17 09:00 08/31/17 08:54 (Microzide) 12.5 mg DAILY PO 08/31/17 09:00 08/31/17 08:56 (Neurontin) 600 mg BID PO 08/30/17 21:00 08/31/17 08:56 (Ambien) 10 mg HS PO 08/30/17 21:00 08/30/17 21:05 (Zoloft) 50 mg DAILY PO 09/01/17 09:00 Social History Living with michele, unemployed has 3 adult children, with [place] 4 months ago from [place]. Highest education is college (3 years). Patient's Strengths (min. 2) Verbal and communicative Physical Exam Patient not noted to be in acute distress, no gross motor abnormalities, no tremors or EPS, no noted psychomotor retardation or agitation. Vital Signs Vital Signs Date Time Temp Pulse Resp B/P (MAP) Pulse Ox O2 Delivery O2 Flow Rate FiO2 08/31/17 16:04 98.3 97 18 126/86 (99) 98 Lab Results Test 08/31/17 09:45 Blood Urea Nitrogen 16 MG/DL Creatinine 0.84 MG/DL Random Glucose 86 MG/DL Calcium Level 8.6 MG/DL Sodium Level 138 MEQ/L Potassium Level 3.9 MEQ/L Chloride Level 104 MEQ/L Carbon Dioxide Level 25.7 MEQ/L Anion Gap 8 MEQ/L Estimat Glomerular Filtration Rate 70 ML/MIN Triglycerides Level 177 MG/DL Cholesterol Level 240 MG/DL LDL Cholesterol 125 MG/DL HDL Cholesterol 79.5 MG/DL Cholesterol/HDL Ratio 3.01 RATIO Mental Status Examination Appearance: Appropriate Consciousness: Alert Orientation: x4 Motor Activity: Normal gait Speech: Unremarkable Language: Adequate Fund of Knowledge: Adequate Attention and Concentration: Adequate Memory: Unremarkable Mood: Sad, Anxious Affect: Sad, Other (dysthymic and tearful) Thought Process & Associations: Goal directed, Linear Thought Content: Appropriate Hallucination Type: None Delusion Type: None Suicidal Ideation: No Suicidal Plan: No Suicidal Intention: No Homicidal Ideation: No Homicidal Plan: No Homicidal Intention: No Insight: Fair Judgment: Impulsive Assessment & Plan Problem List: (1) Adjustment disorder with mixed anxiety and depressed mood ICD Codes: F43.23 - Adjustment disorder with mixed anxiety and depressed mood (2) Alcohol use disorder ICD Codes: F10.99 - Alcohol use, unspecified with unspecified alcohol-induced disorder Assessment & Plan Patient is a 57-year-old woman who carries a diagnosis of depression, anxiety, alcohol use disorder, with recent relapse after seven-month period of sobriety in the context of worsening depressive symptoms and psychosocial stressors. Patient continues to be noted to have significant depressive symptoms and anxiety. We will increase sertraline to 50 mg by mouth daily for depression, continue gabapentin 600 mg by mouth twice a day continue CIWA protocol. Withdrawal precautions. Discharge planning in progress Discharge Planning Patient to be discharged back to her residence when psychiatrically stable. Bernardo Rose MD Aug 31, 2017 16:25
[2017-08-31 17:35] LABS: HEMOGLOBIN A1C 6.1 % (4.3-6.0)
[2017-08-31] MEDS: ALUMINUM/MAGNESIUM/SIMETH 30 ML CUP PO PRN (18:33)
[2017-08-31] MEDS: ZOLPIDEM TARTRATE 10 MG TAB PO SCH (21:46)
[2017-09-01 05:48] VITALS: BP 125/60; PULSE 77; RESP 16; TEMP 98.5; O2SAT 95
[2017-09-01 05:52] VITALS: BP 109/68; PULSE 73; RESP 17; TEMP 97.8
[2017-09-01] MEDS: HYDROCHLOROTHIAZIDE 12.5 MG CAP PO SCH (08:06)
[2017-09-01] MEDS: VALSARTAN 160 MG TAB PO SCH (08:06)
[2017-09-01] MEDS: GABAPENTIN 300 MG CAP PO SCH ×2 (08:07→19:34)
[2017-09-01] MEDS: LORazepam 1 MG TAB PO PRN ×2 (08:14→15:18)
[2017-09-01] MEDS: ACETAMINOPHEN 325 MG TAB PO PRN ×2 (08:14→15:18)
[2017-09-01] MEDS ORDERED: SERTRALINE HCL 50 MG TAB PO SCH (09:00)
--- NOTE | 2017-09-01 13:13 | HHI.PYPN ---
Subjective Remarks Patient seen for follow-up, chart reviewed. Discussion with nursing staff reported patient isolative, not attending groups and sleeping mostly. Patient was found sitting on hospital bed, noted to be dysphoric during interview. She states that she is feeling "not so hot", continues to feel depressed along with anxiety during the day. She also mentions that she had difficulty with sleep last night as her roommate had pain which nursing staff had to attend to and kept her up. She continues to have vague SI but denies any perceptual disturbances or delusions. Review of Systems Except as stated in HPI: all other systems reviewed are Neg Mental Status Examination Appearance: Appropriate Consciousness: Alert Orientation: x4 Motor Activity: Normal gait Speech: Unremarkable Language: Adequate Fund of Knowledge: Adequate Attention and Concentration: Adequate Memory: Unremarkable Mood: Sad, Anxious Affect: Sad, Other (dysthymic) Thought Process & Associations: Goal directed, Linear Thought Content: Appropriate Hallucination Type: None Delusion Type: None Suicidal Ideation: Yes Suicidal Plan: No Suicidal Intention: No Homicidal Ideation: No Homicidal Plan: No Homicidal Intention: No Insight: Fair Judgment: Impulsive Results Vitals/IOs Vital Signs Date Time Temp Pulse Resp B/P (MAP) Pulse Ox O2 Delivery O2 Flow Rate FiO2 09/01/17 05:52 97.8 73 17 109/68 (82) 08/31/17 16:04 98 Assessment & Plan Problem List: (1) Adjustment disorder with mixed anxiety and depressed mood ICD Codes: F43.23 - Adjustment disorder with mixed anxiety and depressed mood (2) Alcohol use disorder ICD Codes: F10.99 - Alcohol use, unspecified with unspecified alcohol-induced disorder Assessment & Plan Patient continues with depressed mood and anxiety along with vague SI. Increase sertraline to 75mg PO daily for depression, start buspirone 5mg PO TID for anxiety, continue rest of medications. Continue to encourage patient to maintain hygiene and participate in groups and activities. Discharge planning in progress. Justification for Cont. Inpt. At risk for further decompensation if at lower level of care. Discharge Planning Patient to return back to her residence once psychiatrically stable. Bernardo Rose MD Sep 01, 2017 13:13
[2017-09-01] MEDS: busPIRone HCL 5 MG TAB PO SCH ×2 (13:14→17:00)
--- NOTE | 2017-09-01 13:35 | PD.TTN ---
Patient Problems 1. Discharge planning 2. Medication compliance 3. Knowledge deficit 4. Lack of coping skills Progress Toward Goals Provider Present: Dr. Neal Rose Provider Input: Patient is starting a new medication regiment. Started new dose will observe for side effects. Nurse(s) Input: Patient is depressed and very isolative on the unit. Patient is noted to be sleeping throughout the day and complaining about poor sleep during the night. Psychiatric Counselors Present: NGOZI MullinsJosef Psych Therapist Input: Patient is cooperative and calm and is here for voluntary for medication medication. Patient remains depressed and expresses stressors surrounding alcohol use and need for substance abuse referral. Patient will return to live with fiance once stablized. Group Spec/RT/OT/MATHEWS Present: BISI Hays Group Spec/RT/OT/MATHEWS Input: Patient is more isolative and needs encouragement to attend groups. But mostly stays seclusive to room. Karlie Ulloa [facility] Sep 01, 2017 13:35
[2017-09-01 17:00] VITALS: BP 116/75; PULSE 77; RESP 17; TEMP 97.6; O2SAT 98
[2017-09-01] MEDS ORDERED: LOPERAMIDE HCL 2 MG CAP PO ONE (17:00)
[2017-09-01] MEDS: ZOLPIDEM TARTRATE 10 MG TAB PO SCH (19:34)
[2017-09-02] MEDS: LORazepam 1 MG TAB PO PRN ×3 (01:44→19:40)
[2017-09-02 05:00] VITALS: BP 96/63; PULSE 82; RESP 16; TEMP 98.3; O2SAT 98
[2017-09-02] MEDS: ACETAMINOPHEN 325 MG TAB PO PRN ×3 (05:46→19:41)
[2017-09-02] MEDS: busPIRone HCL 5 MG TAB PO SCH ×3 (07:52→17:11)
[2017-09-02] MEDS: GABAPENTIN 300 MG CAP PO SCH ×2 (07:53→20:47)
[2017-09-02] MEDS: SERTRALINE HCL 50 MG TAB PO SCH (07:53)
[2017-09-02] MEDS: VALSARTAN 160 MG TAB PO SCH (07:54)
[2017-09-02] MEDS: HYDROCHLOROTHIAZIDE 12.5 MG CAP PO SCH (07:54)
--- NOTE | 2017-09-02 14:01 | HHI.PYPN ---
Subjective Remarks Patient is a follow, chart review. Patient found lying in hospital bed, cooperative interview today. Patient states that she feeling "so-so" as she states she has been having some nausea and occasional episodes of emesis along with feeling some nasal congestion. Patient reports that her appetite also has been "not so good". Patient reports no problems with sleep but noted to be a little restless last evening. Patient states her mood continues to be "despondent, sad". Patient reports having attempted to go to participate in some groups yesterday and will continue to do so today. Patient denies any suicidal ideations at this time but reports feeling decrease in motivation and at times hopeless. She continues to have feelings of guilt due to her recent relapse and states wanting to be better and not to be "a burden on my fianc". Patient states that she has been visited by her fianc has been supportive. Patient noted to be tearful at times throughout interview. Review of Systems Except as stated in HPI: all other systems reviewed are Neg Mental Status Examination Appearance: Appropriate Consciousness: Alert Orientation: x4 Motor Activity: Normal gait Speech: Unremarkable Language: Adequate Fund of Knowledge: Adequate Attention and Concentration: Adequate Memory: Unremarkable Mood: Sad Affect: Sad, Other (tearful at times) Thought Process & Associations: Goal directed, Linear Thought Content: Appropriate Hallucination Type: None Delusion Type: None Suicidal Ideation: Yes (denies at this time) Suicidal Plan: No Suicidal Intention: No Homicidal Ideation: No Homicidal Plan: No Homicidal Intention: No Insight: Fair Judgment: Impulsive Results Vitals/IOs Vital Signs Date Time Temp Pulse Resp B/P (MAP) Pulse Ox O2 Delivery O2 Flow Rate FiO2 09/02/17 05:00 98.3 82 16 96/63 (74) 98 Intake and Output 09/02/17 09/02/17 09/03/17 08:00 16:00 00:00 Intake Total 360 ml Balance 360 ml Assessment & Plan Problem List: (1) Adjustment disorder with mixed anxiety and depressed mood ICD Codes: F43.23 - Adjustment disorder with mixed anxiety and depressed mood (2) Alcohol use disorder ICD Codes: F10.99 - Alcohol use, unspecified with unspecified alcohol-induced disorder Assessment & Plan Patient continues to be noted to be sad and depressed, dysphoric and anhedonic but is noted to be participating more in groups and being less isolative. Patient noted to be requesting Ativan which likely accounts for patient's continued sedation throughout the day and therefore will discontinue Ativan and start clonazepam 0.5 mg by mouth every 12 hours along with hydroxyzine 25 mg by mouth every 6 hours when necessary breakthrough anxiety. Patient recent increase in sertraline, therefore will continue to monitor for response. Discharge planning in progress Justification for Cont. Inpt. At risk for further decompensation if at lower level of care Discharge Planning Patient to be discharged back to her fianc's residence once psychiatrically stable. Bernardo Rose MD Sep 02, 2017 14:01
[2017-09-02] MEDS: hydrOXYzine HCL 25 MG TAB PO PRN (15:02)
[2017-09-02 17:36] VITALS: BP 126/92; PULSE 80; RESP 17; TEMP 97.2; O2SAT 98
[2017-09-02] MEDS: ZOLPIDEM TARTRATE 10 MG TAB PO SCH (20:47)
[2017-09-02] MEDS: clonazePAM 0.5 MG TAB PO SCH (20:47)
[2017-09-03] MEDS: ALUMINUM/MAGNESIUM/SIMETH 30 ML CUP PO PRN (03:53)
[2017-09-03] MEDS: ACETAMINOPHEN 325 MG TAB PO PRN ×2 (05:24→10:36)
[2017-09-03 05:27] VITALS: BP 111/69; PULSE 73; RESP 16; TEMP 98.6; O2SAT 98
[2017-09-03] MEDS: HYDROCHLOROTHIAZIDE 12.5 MG CAP PO SCH (08:42)
[2017-09-03] MEDS: VALSARTAN 160 MG TAB PO SCH (08:42)
[2017-09-03] MEDS: clonazePAM 0.5 MG TAB PO SCH ×2 (08:42→20:41)
[2017-09-03] MEDS: SERTRALINE HCL 50 MG TAB PO SCH (08:42)
[2017-09-03] MEDS: GABAPENTIN 300 MG CAP PO SCH ×2 (08:42→20:41)
[2017-09-03] MEDS: busPIRone HCL 5 MG TAB PO SCH ×3 (08:42→17:03)
[2017-09-03] MEDS: hydrOXYzine HCL 25 MG TAB PO PRN (10:36)
[2017-09-03] MEDS: LORazepam 1 MG TAB PO PRN ×2 (11:05→16:11)
[2017-09-03] MEDS: FLUTICASONE PROPIONATE 50 MCG/ACT 16 GM NASAL SPRAY EACH NARE SCH (15:30)
[2017-09-03] MEDS ORDERED: ONDANSETRON ODT 4 MG TAB PO ONE (15:30)
--- NOTE | 2017-09-03 16:35 | HHI.PYPN ---
Subjective Remarks Patient seen for follow-up, chart reviewed. Patient found lying on hospital bed , states "I've been better". She reports having had a good day yesterday as she was less isolative and participated in some groups. She states keeping in contact with her fiancee whom is very supportive which she reports feels guilty from her relapse still. She denies any SI at this time and agrees to be more active during the day. Review of Systems Except as stated in HPI: all other systems reviewed are Neg Mental Status Examination Appearance: Appropriate Consciousness: Alert Orientation: x4 Motor Activity: Normal gait Speech: Unremarkable Language: Adequate Fund of Knowledge: Adequate Attention and Concentration: Adequate Memory: Unremarkable Mood: Other ("I've been better") Affect: Sad (less so today) Thought Process & Associations: Goal directed, Linear Thought Content: Appropriate Hallucination Type: None Delusion Type: None Suicidal Ideation: Yes (denies at this time) Suicidal Plan: No Suicidal Intention: No Homicidal Ideation: No Homicidal Plan: No Homicidal Intention: No Insight: Fair Judgment: Impulsive Results Vitals/IOs Vital Signs Date Time Temp Pulse Resp B/P (MAP) Pulse Ox O2 Delivery O2 Flow Rate FiO2 09/03/17 05:27 98.6 73 16 111/69 (83) 98 Intake and Output 09/03/17 09/03/17 09/04/17 08:00 16:00 00:00 Intake Total 240 ml Balance 240 ml Assessment & Plan Problem List: (1) Adjustment disorder with mixed anxiety and depressed mood ICD Codes: F43.23 - Adjustment disorder with mixed anxiety and depressed mood (2) Alcohol use disorder ICD Codes: F10.99 - Alcohol use, unspecified with unspecified alcohol-induced disorder Assessment & Plan Patient noted to be less dysthymic, not tearful today. Noted to have nasal congestion, likely seasonal allergies, will add flonase and cetirizine 10mg daily which patient takes at home. Will continue current treatment as patient appears to be improving. Will request facility security officer as she is requesting one. Patient encouraged to consider inpatient rehabilitation program but for now agrees to outpatient rehab. Justification for Cont. Inpt. At risk for further decompensation if at lower level of care. Discharge Planning Patient to return back to her residence once psychiatrically stable. Bernardo Roes MD Sep 03, 2017 16:35
[2017-09-03] MEDS: CETIRIZINE HCL 10 MG TAB PO SCH (17:03)
[2017-09-03 17:32] VITALS: BP 116/63; PULSE 103; RESP 16; TEMP 98.6; O2SAT 97
[2017-09-03] MEDS: ZOLPIDEM TARTRATE 10 MG TAB PO SCH (20:41)
[2017-09-04] MEDS: ACETAMINOPHEN 325 MG TAB PO PRN (02:42)
[2017-09-04] MEDS: hydrOXYzine HCL 25 MG TAB PO PRN ×2 (02:43→11:37)
[2017-09-04 06:07] VITALS: BP 96/58; PULSE 70; RESP 16; TEMP 97.6; O2SAT 97
[2017-09-04] MEDS: GABAPENTIN 300 MG CAP PO SCH ×2 (09:00→18:00)
[2017-09-04] MEDS: HYDROCHLOROTHIAZIDE 12.5 MG CAP PO SCH (09:00)
[2017-09-04] MEDS: CETIRIZINE HCL 10 MG TAB PO SCH (09:00)
[2017-09-04] MEDS: VALSARTAN 160 MG TAB PO SCH (09:00)
[2017-09-04] MEDS: clonazePAM 0.5 MG TAB PO SCH ×2 (09:00→20:33)
[2017-09-04] MEDS: FLUTICASONE PROPIONATE 50 MCG/ACT 16 GM NASAL SPRAY EACH NARE SCH (09:00)
[2017-09-04] MEDS: busPIRone HCL 5 MG TAB PO SCH ×3 (09:00→18:00)
[2017-09-04] MEDS: SERTRALINE HCL 50 MG TAB PO SCH (09:01)
[2017-09-04 10:49] VITALS: BP 115/82; PULSE 112
[2017-09-04 12:00] VITALS: BP 152/67; PULSE 108; RESP 24
[2017-09-04] MEDS: LORazepam 1 MG TAB PO PRN (12:20)
--- NOTE | 2017-09-04 14:50 | HHI.PYPN ---
Subjective Remarks Patient was seen and case discussed with nursing. Patient is perseverant on benzodiazepines. She describes a long history of alcohol abuse and a recent relapse. Psychoeducation was done about the need to minimize this medication. There are no signs of alcohol withdrawal and there is been at least 5 days since her last drink. Denies suicidal or homicidal ideations thought intent or plan. Loss of stressors in the family. Affect is anxious Mental Status Examination Appearance: Appropriate Consciousness: Alert Orientation: x4 Motor Activity: Normal gait Speech: Unremarkable Language: Adequate Fund of Knowledge: Adequate Attention and Concentration: Adequate Memory: Unremarkable Mood: Other ("I've been better") Affect: Sad (less so today), Anxious Thought Process & Associations: Goal directed, Linear Thought Content: Appropriate Hallucination Type: None Delusion Type: None Suicidal Ideation: Yes (denies at this time) Suicidal Plan: No Suicidal Intention: No Homicidal Ideation: No Homicidal Plan: No Homicidal Intention: No Insight: Fair Judgment: Impulsive Results Vitals/IOs Vital Signs Date Time Temp Pulse Resp B/P (MAP) Pulse Ox O2 Delivery O2 Flow Rate FiO2 09/04/17 12:00 108 24 152/67 (95) 09/04/17 06:07 97.6 97 Assessment & Plan Problem List: (1) Adjustment disorder with mixed anxiety and depressed mood ICD Codes: F43.23 - Adjustment disorder with mixed anxiety and depressed mood (2) Alcohol use disorder ICD Codes: F10.99 - Alcohol use, unspecified with unspecified alcohol-induced disorder Assessment & Plan DC CIWA and Ativan. Continue Klonopin. DC Ambien. Start trazodone 100 mg by mouth daily at bedtime. Increase Atarax to 50 mg, increase Neurontin to 600 mg by mouth 3 times a day Justification for Cont. Inpt. Patient would decompensate in a less restrictive setting Dominik Henley DO Sep 04, 2017 14:49
[2017-09-04 17:35] VITALS: BP 141/96; PULSE 104; RESP 18; TEMP 97.3; O2SAT 95
[2017-09-04] MEDS ORDERED: hydrOXYzine HCL 25 MG TAB PO PRN (20:00)
[2017-09-04] MEDS ORDERED: traZODone HCL 100 MG TAB PO SCH (21:00)
[2017-09-04] MEDS: ALUMINUM/MAGNESIUM/SIMETH 30 ML CUP PO PRN (21:37)
[2017-09-05] MEDS ORDERED: LORazepam 1 MG TAB PO PRN (01:00)
[2017-09-05] MEDS ORDERED: clonazePAM 1 MG TAB PO ONE (01:00)
[2017-09-05] MEDS ORDERED: LORazepam 2 MG TAB PO PRN (01:00)
[2017-09-05] MEDS ORDERED: ONDANSETRON ODT 4 MG TAB PO ONE (01:00)
[2017-09-05] MEDS ORDERED: FLUMAZENIL 0.5 MG/5 ML VIAL IV PUSH PRN (01:00)
[2017-09-05] MEDS ORDERED: LORazepam 2 MG/ML VIAL IV PUSH PRN ×4 (01:00)
[2017-09-05] MEDS: ACETAMINOPHEN 325 MG TAB PO PRN (03:25)
[2017-09-05 05:55] VITALS: BP 104/59; PULSE 75; RESP 16; TEMP 98; O2SAT 97
[2017-09-05] MEDS: CETIRIZINE HCL 10 MG TAB PO SCH (08:49)
[2017-09-05] MEDS: GABAPENTIN 300 MG CAP PO SCH ×3 (08:49→18:15)
[2017-09-05] MEDS: SERTRALINE HCL 50 MG TAB PO SCH (08:49)
[2017-09-05] MEDS: FLUTICASONE PROPIONATE 50 MCG/ACT 16 GM NASAL SPRAY EACH NARE SCH (08:50)
[2017-09-05] MEDS: busPIRone HCL 5 MG TAB PO SCH ×3 (08:50→18:15)
[2017-09-05] MEDS: clonazePAM 0.5 MG TAB PO SCH ×2 (08:50→20:18)
[2017-09-05] MEDS: HYDROCHLOROTHIAZIDE 12.5 MG CAP PO SCH (08:53)
[2017-09-05] MEDS: VALSARTAN 160 MG TAB PO SCH (08:53)
--- NOTE | 2017-09-05 12:26 | HHI.PYPN ---
Subjective Remarks Patient was seen and case discussed with nursing. Patient had a reaction to trazodone where she vomited. The on-call doctor thought it may have been secondary to benzodiazepine withdrawal and restarted the CIWA protocol. Today patient is alert and oriented 4, no change in mental status, no visual hallucinations, very mild tremors, no nausea or vomiting and vital signs are not elevated. Patient is focused on Ambien and we discussed why hypnotics should not be combined with benzodiazepines. Patient is pleasant but at times demanding Mental Status Examination Appearance: Appropriate Consciousness: Alert Orientation: x4 Motor Activity: Normal gait Speech: Unremarkable Language: Adequate Fund of Knowledge: Adequate Attention and Concentration: Adequate Memory: Unremarkable Mood: Irritable Affect: Irritable, Anxious Thought Process & Associations: Goal directed, Linear Thought Content: Appropriate Hallucination Type: None Delusion Type: None Suicidal Ideation: Yes (denies at this time) Suicidal Plan: No Suicidal Intention: No Homicidal Ideation: No Homicidal Plan: No Homicidal Intention: No Insight: Fair Judgment: Impulsive Results Vitals/IOs Vital Signs Date Time Temp Pulse Resp B/P (MAP) Pulse Ox O2 Delivery O2 Flow Rate FiO2 09/05/17 05:55 98.0 75 16 104/59 (74) 97 Assessment & Plan Problem List: (1) Adjustment disorder with mixed anxiety and depressed mood ICD Codes: F43.23 - Adjustment disorder with mixed anxiety and depressed mood (2) Alcohol use disorder ICD Codes: F10.99 - Alcohol use, unspecified with unspecified alcohol-induced disorder Assessment & Plan Patient is not likely going through etoh withdrawl. DC trazodone, start Remeron 15 mg by mouth daily at bedtime Justification for Cont. Inpt. Patient will decompensate in a less restrictive setting Dominik Henley DO Sep 05, 2017 12:26
[2017-09-05 16:35] VITALS: BP 103/58; PULSE 84; RESP 18; TEMP 97.6; O2SAT 100
[2017-09-05] MEDS ORDERED: MIRTAZAPINE 15 MG TAB PO SCH (21:00)
[2017-09-06 05:29] VITALS: BP 101/58; PULSE 77; RESP 16; TEMP 97.9; O2SAT 97
[2017-09-06] MEDS: ACETAMINOPHEN 325 MG TAB PO PRN (07:11)
[2017-09-06] MEDS: GABAPENTIN 300 MG CAP PO SCH (08:14)
[2017-09-06] MEDS: SERTRALINE HCL 50 MG TAB PO SCH (08:15)
[2017-09-06] MEDS: CETIRIZINE HCL 10 MG TAB PO SCH (08:16)
[2017-09-06] MEDS: busPIRone HCL 5 MG TAB PO SCH (08:16)
[2017-09-06] MEDS: clonazePAM 0.5 MG TAB PO SCH ×2 (08:16→08:20)
[2017-09-06] MEDS: FLUTICASONE PROPIONATE 50 MCG/ACT 16 GM NASAL SPRAY EACH NARE SCH (08:16)
[2017-09-06] MEDS: HYDROCHLOROTHIAZIDE 12.5 MG CAP PO SCH (08:21)
[2017-09-06] MEDS: VALSARTAN 160 MG TAB PO SCH (08:21)
[2017-09-06] MEDS ORDERED: DIOV160T6 PO (09:56)
[2017-09-06] MEDS ORDERED: ZOLO50TA PO (09:56)
[2017-09-06] MEDS ORDERED: CETI10 PO (09:56)
[2017-09-06] MEDS ORDERED: FLUT50SP EACH NARE (09:56)
[2017-09-06] MEDS ORDERED: NEUR300C PO (09:56)
[2017-09-06] MEDS ORDERED: HYDR12.57 PO (09:56)
[2017-09-06] MEDS ORDERED: BUSP5TAB PO (09:56)
[2017-09-06] MEDS ORDERED: AMBI10TA PO (09:56)
--- NOTE | 2017-09-06 16:09 | HHI.DS ---
Psychiatry Discharge Summary Inpatient Psychiatric care?: Yes Advance Directive: No Reason Not Provided: DOES NOT HAVE ONE Mental Health AdvanceDirective: No Health Care Proxy: No Admission Admission Date Aug 30, 2017 at 15:56 Admission Diagnosis: (1) Adjustment disorder with mixed anxiety and depressed mood ICD Code: F43.23 - Adjustment disorder with mixed anxiety and depressed mood (2) Alcohol use disorder ICD Code: F10.99 - Alcohol use, unspecified with unspecified alcohol-induced disorder Brief History Patient is a 57-year-old woman, domiciled with michele, unemployed with 3 adult children recently moved to [place] 4 months ago from [place], with past psychiatric history of depression, anxiety, alcohol use disorder, ADHD , with multiple psychiatric hospitalizations, no previous suicide attempts and was hospitalized at [facility] for chest pain and was seen by psychiatry consult team on 08/30/17 for worsening depressive symptoms in the context of recent relapse of alcohol use after period of sobriety of 17 years which patient agreed to voluntary psychiatric admission for stabilization. Patient was transferred to the inpatient psychiatry unit for further evaluation and management. Patient found ambulating around the unit was calm and cooperative with interview today. Patient was seen with nurse and was noted to be very tearful during interview today. Patient states that she had been drinking daily for the past week as relapse from a 7 month period of sobriety. Patient reports that her longest period of sobriety has been 17 years previously. She states that her last drink was 23 days ago prior to admission and had about a glass of wine. Patient states that she was feeling overwhelmed with current stressors including feeling homesick being away from her family in [place], recent with her fianc, feeling that things are "building up" with issues with her children and being worried about them. Patient states that she has a strange relationship of her sons has not spoken to for the past 2-3 years. She states she is trying to find a weekend which her son-in-law has arranged for her to meet up with her son come visit. Patient stated he feels guilty and per recent relapse appears of disappointment perpetually found out that she continues to drink. States that she feels support per her fianc would like to be better state of physical mental health for her family. Patient reports having a difficult with sleep along with decreased energy, appetite, concentration, along with feeling depressed, feeling helpless and hopeless with vague thoughts of wanting to be alive, stating "I'm at my wits end ". Patient reports that recently she had been more isolative. Currently patient states that she would like to feel better, regain her sobriety and no longer feeling depressed. Patient denies any perceptual disturbances or delusions. Past psychiatric history: Pre-psychiatric diagnosis depression, anxiety, ADHD, current use disorder. Previous multiple psychiatric hospitalizations, no previous suicide attempts. His outpatient psychiatrist provider Dr. Rojas she was a for the past 6 months, last seen 3 weeks ago. Patient reports also having us counselor and therapist. Previous psychiatric medication trials include Zoloft, Seroquel, gabapentin. Substance use history: Alcohol use daily for the past 7 days related to be for the last some wine. Longest period of sobriety was 17 years with previous episodes of relapse, last period of sobriety was 7 months prior to her recent relapse 1 week ago. Patient reports previous detox and rehabilitation program last being in April 2015. Patient reports previous use of marijuana use which she states she used only twice last being 2013. Patient denies any use of any other substance. Past medical history: Hypertension allergies: Penicillin Social history: Living with michele, unemployed has 3 adult children, with [place] 4 months ago from [place]. Highest education is college (3 years). Legal history, denies Collateral contact: Chago (michele) [phone] Tobacco Use In Past 30 Days: No Tobacco Past 30 Days Alcohol Use: 4 or More Times Per Week Hospital Course Patient is a 57-year-old woman, domiciled with michele, unemployed with 3 adult children recently moved to [place] 4 months ago from [place], with past psychiatric history of depression, anxiety, alcohol use disorder, ADHD , with multiple psychiatric hospitalizations, no previous suicide attempts and was hospitalized at [facility] for chest pain and was seen by psychiatry consult team on 08/30/17 for worsening depressive symptoms in the context of recent relapse of alcohol use after period of sobriety of 17 years which patient agreed to voluntary psychiatric admission for stabilization. Patient was admitted to the inpatient psychiatric unit for further evaluation and management. Patient was started on sertraline 50mg and increased to 75mg daily, gabapentin 600mg PO TID, buspirone 5mg PO TID and continued on [facility] protocol which she was not noted to have experienced symptoms of withdrawal during admission. She responded well to treatment, was noted to be cooperative with staff, no behavioral dyscontrol during admission and was progressively active in groups and activities. Upon discharge patient reported feeling good and motivated to continue outpatient rehabilitation program, denied any perceptual disturbances nor suicidal ideations or homicidal ideations. Patient agreed to continue treatment and follow up appointments for continuity of care. Patient advised to call 911 or go nearest ED in case of emergency. Patient agreed with plan. Results Blood Pressure 101 / 58 Vital Signs Date Time Temp Pulse Resp B/P (MAP) Pulse Ox O2 Delivery O2 Flow Rate FiO2 09/06/17 05:29 97.9 77 16 101/58 (72) 97 Laboratory Results Test 08/31/17 09:45 Cholesterol Level 240 MG/DL (120-200) HDL Cholesterol 79.5 MG/DL (40.0-60.0) Hemoglobin A1c 6.1 % (4.3-6.0) LDL Cholesterol 125 MG/DL (0-99) Triglycerides Level 177 MG/DL (42-150) Summary of Procedures none Pending results at discharge: No Medications # of Antipsychotic meds at D/C: 0 Approp Antipsych med options 1 - Minimum of three failed multiple trials of monotherapy. 2 - Documented plan to taper to monotherapy due to previous use of multiple meds OR cross-taper in progress at D/C. 3 - Documentation of augmentation of Clozapine. 4 - Justification other than those listed in allowable values 1-3, document here : Discharge Discharge Date: Sep 06, 2017 Discharge Diagnosis: (1) Adjustment disorder with mixed anxiety and depressed mood ICD Code: F43.23 - Adjustment disorder with mixed anxiety and depressed mood (2) Alcohol use disorder ICD Code: F10.99 - Alcohol use, unspecified with unspecified alcohol-induced disorder Pt Condition on Discharge: Stable Discharge Disposition: Discharge Home Discharge Instructions Diet Instructions: As Tolerated, No Restrictions Activities you can perform: Regular-No Restrictions Scheduled Appointment: [place] Appointment Date: Sep 07, 2017 Appointment Time: 730 Discharge Time > 30 minutes Mental Status Examination Appearance: Appropriate Consciousness: Alert Orientation: x4 Motor Activity: Normal gait Speech: Unremarkable Language: Adequate Fund of Knowledge: Adequate Attention and Concentration: Adequate Memory: Unremarkable Mood: Appropriate Affect: Appropriate Thought Process & Associations: Intact, Goal directed, Linear Thought Content: Appropriate Hallucination Type: None Delusion Type: None Suicidal Ideation: No Suicidal Plan: No Suicidal Intention: No Homicidal Ideation: No Homicidal Plan: No Homicidal Intention: No Insight: Fair Judgment: Impulsive Discharge/Advance Care Plan Health Problems: (1) Adjustment disorder with mixed anxiety and depressed mood (2) Alcohol use disorder Goals to promote your health * To prevent worsening of your condition and complications * To maintain your health at the optimal level Directions to meet your goals Take your medications as prescribed Follow your dietary instruction Follow activity as directed Keep your appointments as scheduled Take your immunizations and boosters as scheduled If your symptoms worsen call your PCP, if no PCP go to Urgent Care Center or Emergency Room For 31/05 questions related to your inpatient stay or results of tests pending at discharge, please contact Dr. Bernardo Rose at Smoking is Dangerous to Your Health. Avoid second hand smoking Bernardo Rose MD Sep 06, 2017 16:09
== END 2017-09-06 12:23 | disposition home or self-care (01) | DRG 882 ==
LOC: H260 15:56
PROVIDERS: ADMIT Student in an Organized Health Care Education/Training Program; ATTEND Student in an Organized Health Care Education/Training Program
DX: F43.23 Adjustment disorder with mixed anxiety and depressed mood (principal); F10.99 Alcohol use, unspecified with unspecified alcohol-induced disorder; I10 Essential (primary) hypertension; Z88.0 Allergy status to penicillin
CPT/HCPCS: 80048; 80061; 83036

== ENCOUNTER 2017-09-15 12:04 | Inpatient (IN) | payer BC ==
[~2017-09-15] VITALS: Ht 172.7 cm; Wt 64.0 kg
[2017-09-15] VITALS (8 sets, daily range): BP systolic 91–141; BP diastolic 58–93; PULSE 68–100; RESP 16–20; TEMP 97.8–98.5; O2SAT 92–100
[~2017-09-15 12:04] MED LIST changes: +AMBI10TA PO; +BUSP5TAB PO; +CETI10 PO; +DIOV160T6 PO; +FLUT50SP EACH NARE; +HYDR12.57 PO; +NEUR300C PO; -SONA10CA5 PO; +ZALE10 PO; +ZOLO50TA PO
[2017-09-15] MEDS ORDERED: ASPIRIN 325 MG TAB PO ONE (12:30)
--- NOTE | 2017-09-15 12:42 | PD ---
HPI Chief Complaint: Chest Pain Time Seen by Provider: 12:19 Travel History International Travel<30 days: No Contact w/Intl Traveler<30days: No Traveled to known affect area: No History of Present Illness HPI 57-year-old female that presents to the ED for evaluation of chest pain. Patient has had chest pain for about 3 hours now. She also states having left leg pain. In examination patient somewhat lethargic. She is arousable and answers questions appropriately. She does have a significant history of recent admission for psychiatric evaluation. Has a history of alcohol abuse as well as ADHD and depression. She was given medications and has been compliant with them. She states that she is continuing to drink alcohol. She apparently has also been suffering from insomnia was given a prescription for Ambien but she has been out of it for almost a week now. She denies any trauma. No recent travel. She recently moved from [place] with her fianc and has been dealing with depression and relapse from alcohol. She apparently was clean for 17 years. She denies any fevers chills or sweats. No numbness, tilling, weakness. Per patient the pain is pressure-like and is on the right side of the chest as well as on the medial aspect of the left leg. She cannot tell me how long she's had this pain. Pain per patient is 5 out of 10. Somewhat reproducible with touch in the right chest. Allergies to penicillin. Per significant other she has been taking some medications that were old for her besides for the ones that she's been taking that were prescribed to her recently. Per significant other she has been telling him that she feels like she is withdrawing from the ambient. Significant other is wanted to make is aware that she's been taking more medications than just the ones that she is telling us. PFSH Past Medical History Anxiety: Yes Depression: Yes Heart Rhythm Problems: No Cancer: No Cardiac Catheterization: No Cardiovascular Problems: Yes High Cholesterol: Yes Congestive Heart Failure: No Diabetes: No Diminished Hearing: No Endocrine: No Gastrointestinal Disorders: Yes GERD: Yes Genitourinary: No Hypertension: Yes Immune Disorder: Yes ([place]) Musculoskeletal: Yes (LEFT KNEE) Neurologic: Yes Psychiatric: Yes (depression, anxiety, ADHD) Reproductive: No Respiratory: No Migraines: Yes Ulcer: Yes Influenza Vaccination: No ?: Not Past Surgical History Section: Yes (X3) Coronary Artery Bypass Graft: No Other Surgery: Yes (3 C-SECTIONS) Social History Alcohol Use: Yes (HX OF ETOH ABUSE. DRANK TONIGHT) Tobacco Use: No Substance Use: No Allergies-Medications (Allergen,Severity, Reaction): Coded Allergies: Penicillins (Verified Allergy, Mild, Hives, 09/15/17) Reported Meds & Prescriptions Reported Meds & Active Scripts Active Ambien (Zolpidem Tartrate) 10 Mg Tab 10 Mg PO HS 7 Days Fluticasone Nasal [place] 50 Mcg/Act Naspr 2 [place] EACH NARE DAILY 30 Days 50 mcg/spray Hydrochlorothiazide 12.5 Mg Cap 12.5 Mg PO DAILY 30 Days Buspirone (Buspirone HCl) 5 Mg Tab 5 Mg PO TID 30 Days Zoloft (Sertraline HCl) 50 Mg Tab 75 Mg PO DAILY 30 Days Neurontin (Gabapentin) 300 Mg Cap 600 Mg PO TID 30 Days Diovan (Valsartan) 160 Mg Tab 160 Mg PO DAILY 30 Days Cetirizine (Cetirizine HCl) 10 Mg Tab 10 Mg PO DAILY 30 Days Reported Diovan Hct (Valsartan-Hydrochlorothiazide) 160-12.5 Mg Tab 1 Tab PO DAILY Adderall Xr 24 HR (Amphetamine/Dextroamphetamine) 30 Mg Cap 30 Mg PO DAILY PRN Once daily in the morning. Sonata (Zaleplon) 10 Mg Cap 10 Mg PO HS PRN Vistaril (Hydroxyzine Pamoate) 50 Mg Cap 100 Mg PO BID PRN Review of Systems Except as stated in HPI: all other systems reviewed are Neg Physical Exam Narrative GENERAL: SKIN: Warm and dry. HEAD: Atraumatic. Normocephalic. EYES: Pupils equal and round. No scleral icterus. No injection or drainage. ENT: No nasal bleeding or discharge. Mucous membranes pink and moist. Tongue is midline. No uvula deviation. NECK: Trachea midline. No JVD. CARDIOVASCULAR: Regular rate and rhythm. No murmurs, S3, S4. Some of the right chest pain is reproducible with touch. RESPIRATORY: No accessory muscle use. Clear to auscultation. Breath sounds equal bilaterally. GASTROINTESTINAL: Abdomen soft, non-tender, nondistended. Hepatic and splenic margins not palpable. MUSCULOSKELETAL: Extremities without clubbing, cyanosis, or edema. No obvious deformities. Full range of motion of the upper and lower extremities bilaterally. 2+ pulses bilaterally. NEUROLOGICAL: Awake and alert. No obvious cranial nerve deficits. Motor grossly within normal limits. Five out of 5 muscle strength in the arms and legs. Normal speech. PSYCHIATRIC: Appropriate mood and affect; insight and judgment normal. Data Data Last Documented VS Vital Signs Date Time Temp Pulse Resp B/P (MAP) Pulse Ox O2 Delivery O2 Flow Rate FiO2 09/15/17 12:35 92 Room Air 09/15/17 12:35 09/15/17 12:05 98.4 100 20 Orders Orders Electrocardiogram (09/15/17 12:17) Complete Blood Count With Diff (09/15/17 12:17) Ckmb (Isoenzyme) Profile (09/15/17 12:17) Troponin I (09/15/17 12:17) Chest, Single Ap (09/15/17 12:17) Iv Access Insert/Monitor (09/15/17 12:17) Ecg Monitoring (09/15/17 12:17) Oxygen Administration (09/15/17 12:17) Oximetry (09/15/17 12:17) D-Dimer (09/15/17 12:19) Lipase (09/15/17 12:19) Drug Screen, Random Urine (09/15/17 12:27) Alcohol (Ethanol) (09/15/17 12:27) Us Leg Venous Doppler (09/15/17 ) Comprehensive Metabolic Panel (09/15/17 12:27) Aspirin (Aspirin) (09/15/17 12:30) CKMB (09/15/17 12:42) CKMB% (09/15/17 12:42) Admit Order (Ed Use Only) (09/15/17 14:31) Labs Laboratory Tests Test 09/15/17 12:42 White Blood Count 7.2 TH/MM3 Red Blood Count 3.92 MIL/MM3 Hemoglobin 11.9 GM/DL Hematocrit 34.8 % Mean Corpuscular Volume 89.0 FL Mean Corpuscular Hemoglobin 30.4 PG Mean Corpuscular Hemoglobin Concent 34.2 % Red Cell Distribution Width 14.5 % Platelet Count 429 TH/MM3 Mean Platelet Volume 7.5 FL Neutrophils (%) (Auto) 56.6 % Lymphocytes (%) (Auto) 35.3 % Monocytes (%) (Auto) 6.2 % Eosinophils (%) (Auto) 0.9 % Basophils (%) (Auto) 1.0 % Neutrophils # (Auto) 4.1 TH/MM3 Lymphocytes # (Auto) 2.5 TH/MM3 Monocytes # (Auto) 0.4 TH/MM3 Eosinophils # (Auto) 0.1 TH/MM3 Basophils # (Auto) 0.1 TH/MM3 CBC Comment DIFF FINAL Differential Comment D-Dimer Quantitative (PE/DVT) 0.20 MG/L FEU Blood Urea Nitrogen 12 MG/DL Creatinine 0.93 MG/DL Random Glucose 85 MG/DL Total Protein 7.3 GM/DL Albumin 3.9 GM/DL Calcium Level 8.0 MG/DL Alkaline Phosphatase 83 U/L Aspartate Amino Transf (AST/SGOT) 17 U/L Alanine Aminotransferase (ALT/SGPT) 18 U/L Total Bilirubin 0.1 MG/DL Sodium Level 139 MEQ/L Potassium Level 4.2 MEQ/L Chloride Level 104 MEQ/L Carbon Dioxide Level 27.8 MEQ/L Anion Gap 7 MEQ/L Estimat Glomerular Filtration Rate 62 ML/MIN Total Creatine Kinase 118 U/L Creatine Kinase MB 1.3 NG/ML Troponin I LESS THAN 0.02 NG/ML Lipase 77 U/L Ethyl Alcohol Level 235 MG/DL [facility] Medical Decision Making Medical Screen Exam Complete: Yes Emergency Medical Condition: Yes Medical Record Reviewed: Yes Interpretation(s) CBC & BMP Diagram 09/15/17 12:42 Total Protein 7.3, Albumin 3.9, Calcium Level 8.0 L, Alkaline Phosphatase 83, Aspartate Amino Transf (AST/SGOT) 17, Alanine Aminotransferase (ALT/SGPT) 18, Total Bilirubin 0.1 L EKG shows sinus rhythm with no sign of acute ischemia or arrhythmia. Read by me and attending. Alcohol in the 200s. Troponin and CK-MB negative. Course within normal limits with normal d-dimer. Last Impressions Chest X-Ray 09/15/17 1217 Signed Impressions: Service Date/Time: Friday, September 15, 2017 12:47 - CONCLUSION: No acute cardiopulmonary abnormality is identified. Duane Pacheco MD Lower Extremity Ultrasound 09/15/17 0000 Signed Impressions: Service Date/Time: Friday, September 15, 2017 12:44 - CONCLUSION: Negative for deep venous thrombosis. Car Mcclelland MD FACR Differential Diagnosis Chest pain versus a typical chest pain versus anxiety versus overdose versus substance abuse versus depression versus adjustment disorder versus PE versus DVT versus gallbladder disease Narrative Course 57-year-old female that presents to the ED for evaluation of left-sided chest pain. Patient was properly examined and was found to have signs and symptoms of unclear etiology at this time. She does have risk factors for ACS as well as be secondary to tachycardia and hypertension history and family history of heart disease as well as possible substance abuse. Significant other is telling me that patient is likely abusing other drugs as well. He is concerned that she is taking other medications. She is also drinking again. Labs and imaging were ordered. Labs and imaging were essentially negative other than for alcohol in the 200s. My attending Dr. Leon evaluated the patient with me. She recommends admission for chest pain rule out as patient has not had a stress test recently. Sounds are not good historian and unclear as to if she is abusing any other medications. Case was discussed with Dr. Quiñones for the residents who agrees to admission to their service for chest pain rule out and possible psych eval. Diagnosis Primary Impression: Chest pain in adult Additional Impressions: Alcohol use disorder Adjustment disorder with mixed anxiety and depressed mood Admitting Information Admitting Physician Requests: Observation Bebeto Valenzuela Sep 15, 2017 12:42
--- NOTE | 2017-09-15 12:59 | RADRPT ---
EXAM DATE/TIME: 09/15/2017 12:44 [facility] COMPARISON: No previous studies available for comparison. INDICATIONS : Left leg swelling. MEDICAL HISTORY : Hypercholesterolemia. Syncope. Migraines. HTN. Ulcer. GERD. ADHD. Depression. Anxiety. SURGICAL HISTORY : section. Orthopedic surgery, left knee x3. Blood transfusions. ENCOUNTER: Initial ACUITY: 1 day PAIN SCORE: 4/10 LOCATION: Left leg. TECHNIQUE: Venous ultrasound of the leg was performed from the inguinal ligament to the proximal calf. Real-brian e, color Doppler and spectral tracing, compression and augmentation techniques were used. FINDINGS: There is normal compressibility of the deep venous system from the inguinal region to the proximal ca lf. No echogenic clot is seen in the lumen of the common femoral, femoral, popliteal, and posterior tibial veins. There is a normal response of the venous system to proximal and distal augmentation an d respiration. CONCLUSION: Negative for deep venous thrombosis. Car Mcclelland MD FACR on September 15, 2017 at 12:57 Board Certified Radiologist. This report was verified electronically.
[2017-09-15 13:05] LABS: AUTOMATED NEUTROPHIL # 4.1 TH/MM3 (1.8-7.7); BASOPHIL # 0.1 TH/MM3 (0-0.2); EOSINOPHIL # 0.1 TH/MM3 (0-0.4); EOSINOPHIL % 0.9 % (0.0-4.0); HEMATOCRIT 34.8 % (35.0-46.0); HEMO FLAGS DIFF FINAL; LYMPH % 35.3 % (9.0-44.0); LYMPHOCYTE # 2.5 TH/MM3 (1.0-4.8); MEAN CORPUSCULAR HEMOGLOBIN 30.4 PG (27.0-34.0); MEAN CORPUSCULAR HGB CONC 34.2 % (32.0-36.0); MONO % 6.2 % (0.0-8.0); NEUT % 56.6 % (16.0-70.0); PLATELET COUNT 429 TH/MM3 (150-450); RED BLOOD COUNT 3.92 MIL/MM3 (4.00-5.30); RED CELL DISTRIBUTION WIDTH 14.5 % (11.6-17.2); WHITE BLOOD COUNT 7.2 TH/MM3 (4.0-11.0)
--- NOTE | 2017-09-15 13:07 | RADRPT ---
EXAM DATE/TIME: 09/15/2017 12:47 [facility] COMPARISON: CHEST SINGLE AP, August 30, 2017, 1:26. INDICATIONS : Chest pain. MEDICAL HISTORY : Hypertension. SURGICAL HISTORY : None. ENCOUNTER: Initial ACUITY: 1 day PAIN SCORE: 8/10 LOCATION: Bilateral chest FINDINGS: Portable AP view of the chest demonstrates a normal-sized cardiac silhouette. No effusion, consolidat ion, or pneumothorax is visualized. The bones and soft tissues demonstrate no acute abnormality. EKG lines overlie the patient. CONCLUSION: No acute cardiopulmonary abnormality is identified. Duane Pacheco MD on September 15, 2017 at 13:05 Board Certified Radiologist. This report was verified electronically.
[2017-09-15 13:23] LABS: ALT (GPT) 18 U/L (10-53); ANION GAP 7 MEQ/L (5-15); AST (GOT) 17 U/L (15-37); BICARBONATE 27.8 MEQ/L (21.0-32.0); BLOOD UREA NITROGEN 12 MG/DL (7-18); CHLORIDE 104 MEQ/L (98-107); GLOMERULAR FILTRATION RATE 62 ML/MIN (>89); POTASSIUM 4.2 MEQ/L (3.5-5.1); SODIUM (NA) 139 MEQ/L (136-145)
[2017-09-15 13:25] LABS: ALCOHOL 235 MG/DL (0-5)
[2017-09-15 13:26] LABS: ALKALINE PHOSPHATASE 83 U/L (45-117); TOTAL BILIRUBIN ADULT 0.1 MG/DL (0.2-1.0)
[2017-09-15 13:27] LABS: CREATINE KINASE 118 U/L (26-192)
[2017-09-15 13:40] LABS: CKMB 1.3 NG/ML (0.5-3.6)
[2017-09-15] MEDS ORDERED: LORazepam 2 MG TAB PO PRN (15:00)
[2017-09-15] MEDS ORDERED: LORazepam 1 MG TAB PO PRN (15:00)
[2017-09-15] MEDS ORDERED: FLUMAZENIL 0.5 MG/5 ML VIAL IV PUSH PRN (15:00)
[2017-09-15] MEDS ORDERED: LORazepam 2 MG/ML VIAL IV PUSH PRN ×4 (15:00)
--- NOTE | 2017-09-15 15:25 | HHI.HP ---
[facility] Service Family Medicine Primary Care Physician No Primary Care Physician Admission Diagnosis chest pain, r/o ACS, alcohol intoxication, psychiatric illness Diagnoses: International Travel<30 Days: No Contact w/Intl Traveler<30days: No Known Affected Area: No History of Present Illness 67-year-old female with past medical history of insomnia, anxiety, ADD, hypertension, alcoholism presenting for her right-sided chest pain and left- sided leg pain since yesterday evening. The chest pain is described as a burning and is not worsened with activity or inspiration. Her left leg pain is described as cramping. The pain is usually low-grade like a 4 out of 10, but occasionally she will fill it up to 8 out of 10. Other than the chest pain and leg pain, she also notes she's been a little bit depressed recently and has fallen off the wagon with her sobriety, drinking about 6-8 artery glasses of wine daily for the last few days. She denies suicidal ideation or plan, and has never had a suicide attempt in the past. She has no history of myocardial infarction. Review of Systems Constitutional: DENIES: Fever, Chills Endocrine: DENIES: Polydipsia, Polyuria Eyes: DENIES: Eye pain, Vision loss Ears, nose, mouth, throat: COMPLAINS OF: Throat pain, DENIES: Nasal discharge, Ear Pain, Running Nose, Sinus Pain, Odynophagia Respiratory: COMPLAINS OF: Cough, DENIES: Wheezing, Sputum production, Shortness of breath Cardiovascular: COMPLAINS OF: Chest pain, DENIES: Palpitations, Dyspnea on Exertion, Lower Extremity Edema Gastrointestinal: COMPLAINS OF: Constipation, DENIES: Abdominal pain, Black stools, Bloody stools, Diarrhea, Nausea, Vomiting Genitourinary: COMPLAINS OF: Dysuria, DENIES: Urinary frequency, Urgency Musculoskeletal: COMPLAINS OF: Muscle aches, DENIES: Joint pain Integumentary: DENIES: Rash Hematologic/lymphatic: DENIES: Bruising Immunologic/allergic: DENIES: Eczema Neurologic: DENIES: Headache, Localized weakness, Paresthesias Psychiatric: COMPLAINS OF: Anxiety, Depression, DENIES: Mood changes, Suicidal Ideation, Homicidal Ideation, Delusions Past Family Social History Past Medical History HTN Alcoholism - per patient previously sober for 17 years Insomnia Anxiety Depression ADD Past Surgical History L knee ACL/PCL/Meniscus repair - 2007 C/S x3 Reported Medications Reported Meds & Active Scripts Active Ambien (Zolpidem Tartrate) 10 Mg Tab 10 Mg PO HS 7 Days Fluticasone Nasal Elsie 50 Mcg/Act Naspr 2 Elsie EACH NARE DAILY 30 Days 50 mcg/spray Hydrochlorothiazide 12.5 Mg Cap 12.5 Mg PO DAILY 30 Days Buspirone (Buspirone HCl) 5 Mg Tab 5 Mg PO TID 30 Days Zoloft (Sertraline HCl) 50 Mg Tab 75 Mg PO DAILY 30 Days Neurontin (Gabapentin) 300 Mg Cap 600 Mg PO TID 30 Days Diovan (Valsartan) 160 Mg Tab 160 Mg PO DAILY 30 Days Cetirizine (Cetirizine HCl) 10 Mg Tab 10 Mg PO DAILY 30 Days Reported Seroquel (Quetiapine Fumarate) 100 Mg Tab 100 Mg PO HS Diovan Hct (Valsartan-Hydrochlorothiazide) 160-12.5 Mg Tab 1 Tab PO DAILY Adderall Xr 24 HR (Amphetamine/Dextroamphetamine) 30 Mg Cap 30 Mg PO DAILY PRN Once daily in the morning. Sonata (Zaleplon) 10 Mg Cap 10 Mg PO HS PRN Vistaril (Hydroxyzine Pamoate) 50 Mg Cap 100 Mg PO BID PRN Allergies: Coded Allergies: Penicillins (Verified Allergy, Mild, Hives, 09/15/17) Active Ordered Medications Current Medications Medications (Trade) Dose Ordered Sig/Kristine Route Start Time Stop Time Status Last Admin (Romazicon Inj) 0.2 mg Q1M PRN IV PUSH 09/15/17 15:00 (Ativan) 1 mg Q4H PRN PO 09/15/17 15:00 (Ativan Inj) 1 mg Q4H PRN IV PUSH 09/15/17 15:00 (Ativan) 2 mg Q2H PRN PO 09/15/17 15:00 (Ativan Inj) 2 mg Q2H PRN IV PUSH 09/15/17 15:00 (Ativan Inj) 2 mg Q1H PRN IV PUSH 09/15/17 15:00 (Ativan Inj) 2 mg Q15M PRN IV PUSH 09/15/17 15:00 Sodium Chloride 1,000 ml @ 100 mls/hr Q10H IV 09/15/17 16:00 09/15/17 16:54 (Zofran Inj) 4 mg Q6H PRN IVP 09/15/17 15:30 (Ambien) 5 mg HS PRN PO 09/15/17 15:30 (Tylenol) 650 mg Q6H PRN PO 09/15/17 15:30 (Grisel-Colace) 1 tab BID PO 09/15/17 21:00 (Milk Of Magnesia Liq) 30 ml Q12H PRN PO 09/15/17 15:30 (Senokot) 17.2 mg Q12H PRN PO 09/15/17 15:30 (Dulcolax Supp) 10 mg DAILY PRN RECTAL 09/15/17 15:30 (Lactulose Liq) 30 ml DAILY PRN PO 09/15/17 15:30 Multivitamins 10 ml/Folic Acid 1 mg/Sodium Chloride 510.2 ml @ 125 mls/hr Q24H IV 09/15/17 17:00 09/20/17 16:59 Thiamine HCl 100 mg/Sodium Chloride 101 ml @ 100 mls/hr Q24H IV 09/15/17 17:00 09/18/17 16:59 09/15/17 16:54 (Vitamin B1) 100 mg DAILY PO 09/19/17 09:00 (ZyrTEC) 10 mg DAILY PO 09/16/17 09:00 (Flonase Michael Spr) 2 spray DAILY EACH NARE 09/16/17 09:00 (Neurontin) 600 mg TID PO 09/15/17 18:00 (Microzide) 12.5 mg DAILY PO 09/16/17 09:00 (Vistaril) 100 mg BID PRN PO 09/15/17 15:45 (Zoloft) 75 mg DAILY PO 09/16/17 09:00 (Diovan) 160 mg DAILY PO 09/16/17 09:00 (SEROquel) 100 mg HS PO 09/15/17 21:00 Family History Father - heart disease age 56, age 58 in car wreck Mother - previously healthy, age 60 in car wreck Social History Recently moved to [place] from [place], lives with fiance. Stressors at home including her daughter going through a divorce (but daughter lives in [place]). Tob: never smoker Alc: See HPI Drugs: Denies use Physical Exam Vital Signs Vital Signs Date Time Temp Pulse Resp B/P (MAP) Pulse Ox O2 Delivery O2 Flow Rate FiO2 09/15/17 14:35 85 20 141/93 (109) 100 09/15/17 12:35 92 Room Air 09/15/17 12:35 92 Room Air 09/15/17 12:05 98.4 100 20 118/80 (93) 95 Room Air Physical Exam GENERAL: WDWN thin white woman who appears older than stated age sitting up in chair, uncomfortable, NAD SKIN: No rashes, ecchymoses or lesions. Cool and dry. No jaundice. HEAD: NC/AT EYES: PERRL. EOMI. No conjunctival injection or drainage. No scleral icterus. ENT: MMM, OP with mild erythema; no tonsillar swelling, or exudate. NECK: Supple, trachea midline. No JVD. CARDIOVASCULAR: NRRR. Normal S1/S2. No MRG RESPIRATORY: CTAB. No crackles or wheezes. Chest wall highly tender to palpation. GASTROINTESTINAL: Abdomen soft, non-distended, non-tender. No hepato- splenomegaly or palpable masses. MUSCULOSKELETAL: Extremities without clubbing, cyanosis, or edema. Mild calf tenderness on BLE, slightly worse LLE. NEUROLOGICAL: Awake and alert. Cranial nerves II through XII grossly intact. Moves all extremities without difficulty. Normal speech. Mild resting tremor. Laboratory Laboratory Tests Test 09/15/17 12:42 09/15/17 14:55 White Blood Count 7.2 Red Blood Count 3.92 Hemoglobin 11.9 Hematocrit 34.8 Mean Corpuscular Volume 89.0 Mean Corpuscular Hemoglobin 30.4 Mean Corpuscular Hemoglobin Concent 34.2 Red Cell Distribution Width 14.5 Platelet Count 429 Mean Platelet Volume 7.5 Neutrophils (%) (Auto) 56.6 Lymphocytes (%) (Auto) 35.3 Monocytes (%) (Auto) 6.2 Eosinophils (%) (Auto) 0.9 Basophils (%) (Auto) 1.0 Neutrophils # (Auto) 4.1 Lymphocytes # (Auto) 2.5 Monocytes # (Auto) 0.4 Eosinophils # (Auto) 0.1 Basophils # (Auto) 0.1 CBC Comment DIFF FINAL Differential Comment D-Dimer Quantitative (PE/DVT) 0.20 Blood Urea Nitrogen 12 Creatinine 0.93 Random Glucose 85 Total Protein 7.3 Albumin 3.9 Calcium Level 8.0 Alkaline Phosphatase 83 Aspartate Amino Transf (AST/SGOT) 17 Alanine Aminotransferase (ALT/SGPT) 18 Total Bilirubin 0.1 Sodium Level 139 Potassium Level 4.2 Chloride Level 104 Carbon Dioxide Level 27.8 Anion Gap 7 Estimat Glomerular Filtration Rate 62 Total Creatine Kinase 118 Creatine Kinase MB 1.3 Troponin I LESS THAN 0.02 Lipase 77 Ethyl Alcohol Level 235 Result Diagram: 09/15/17 1242 09/15/17 1242 Imaging Last Impressions Chest X-Ray 09/15/17 1217 Signed Impressions: Service Date/Time: Friday, September 15, 2017 12:47 - CONCLUSION: No acute cardiopulmonary abnormality is identified. Duane Pacheco MD Lower Extremity Ultrasound 09/15/17 0000 Signed Impressions: Service Date/Time: Friday, September 15, 2017 12:44 - CONCLUSION: Negative for deep venous thrombosis. Car Mcclelland MD FACR Aileeni VTE Risk Assessment Caprini VTE Risk Assessment: No/Low Risk (score <= 1) Caprini Risk Assessment Model Point Value = 1 Point Value = 2 Point Value = 3 Point Value = 5 Age 41-60 Minor surgery BMI > 25 kg/m2 Swollen legs Varicose veins or History of unexplained or recurrent spontaneous Oral contraceptives or hormone replacement Sepsis (< 1 month) Serious lung disease, including pneumonia (< 1 month) Abnormal pulmonary function Acute myocardial infarction Congestive heart failure (< 1 month) History of inflammatory bowel disease Medical patient at bed rest Age 61-74 Arthroscopic surgery Major open surgery (> 45 min) Laparoscopic surgery (> 45 min) Malignancy Confined to bed (> 72 hours) Immobilizing plaster cast Central venous access Age >= 75 History of VTE Family history of VTE Factor V Leiden Prothrombin [id number] Lupus anticoagulant Anticardiolipin antibodies Elevated serum homocysteine Heparin-induced thrombocytopenia Other congenital or acquired thrombophilia Stroke (< 1 month) Elective arthroplasty Hip, pelvis, or leg fracture Acute spinal cord injury (< 1 month) Prophylaxis Regimen Total Risk Factor Score Risk Level Prophylaxis Regimen 0-1 Low Early ambulation 2 Moderate Order ONE of the following: *Sequential Compression Device (SCD) *Heparin 5000 units SQ BID 3-4 Higher Order ONE of the following medications: *Heparin 5000 units SQ TID *Enoxaparin/Lovenox 40 mg SQ daily (WT < 150 kg, CrCl > 30 mL/min) *Enoxaparin/Lovenox 30 mg SQ daily (WT < 150 kg, CrCl > 10-29 mL/min) *Enoxaparin/Lovenox 30 mg SQ BID (WT < 150 kg, CrCl > 30 mL/min) AND/OR *Sequential Compression Device (SCD) 5 or more Highest Order ONE of the following medications: *Heparin 5000 units SQ TID (Preferred with Epidurals) *Enoxaparin/Lovenox 40 mg SQ daily (WT < 150 kg, CrCl > 30 mL/min) *Enoxaparin/Lovenox 30 mg SQ daily (WT < 150 kg, CrCl > 10-29 mL/min) *Enoxaparin/Lovenox 30 mg SQ BID (WT < 150 kg, CrCl > 30 mL/min) AND *Sequential Compression Device (SCD) Assessment and Plan Assessment and Plan 57 year old female with history of alcoholism, hypertension, anxiety/depression presenting with: Problem List: (1) Chest pain in adult ICD Codes: R07.9 - Chest pain, unspecified Status: Acute Plan: Atypical chest pain, reproducible with palpation of chest wall. Possibly costochondritis, but with h/o HTN and family history, NC should be excluded. Initial troponin < 0.02 CBC unremarkable UDS negative - S/p aspirin x1 - Trend EKG, troponin Q4H x3 total - Consider stress test in AM for full ACS r/o, but this could be done as outpatient - Treat alcohol use as below - Tylenol PRN pain (avoid NSAIDs due to alcohol use) - Famotidine BID for possible gastritis (2) Alcohol use disorder ICD Codes: F10.99 - Alcohol use, unspecified with unspecified alcohol-induced disorder Status: Chronic Plan: Blood alcohol level 200 on admission - Rally pack (multivitamin, thiamine) - [facility] protocol - Case management to assist with resources for discharge planning (3) Hypertension ICD Codes: I10 - Essential (primary) hypertension Plan: BP wnl - Continue home valsartan/HCTZ 160/12.5 mg daily (4) Anxiety ICD Codes: F41.9 - Anxiety disorder, unspecified Status: Chronic Plan: Slightly anxious now, but possibly due to alcohol - Continue home Seroquel 100 mg HS, Gabapentin 300 mg TID, Zoloft 50 mg daily - WA as above - Encourage patient to set up with therapist as outpatient (advised her to call her insurance) (5) Leg cramping ICD Codes: R25.2 - Cramp and spasm Status: Acute Plan: LLE ultrasound negative for DVT D-dimer negative - Tylenol for pain as above (6) Dysuria ICD Codes: R30.0 - Dysuria Status: Acute Plan: Dysuria x1 day, no other UTI symptoms - Check urinalysis (7) FEN Plan: Fluids: PO only Electrolytes: Monitor and replete PRN Nutrition: Diet regular DVT: Low risk, no prophylaxis needed Code: FULL CODE Problem Qualifiers (1) Hypertension: Qualified Codes: I10 - Essential (primary) hypertension Lenin Jeter MD R2 Sep 15, 2017 15:25
[2017-09-15] MEDS ORDERED: ZOLPIDEM TARTRATE 5 MG TAB PO PRN (15:30)
[2017-09-15] MEDS ORDERED: BISACODYL 10 MG SUPP RECTAL PRN (15:30)
[2017-09-15] MEDS ORDERED: ACETAMINOPHEN 325 MG TAB PO PRN (15:30)
[2017-09-15] MEDS ORDERED: LACTULOSE SYRUP 20 GM/30 ML CUP PO PRN (15:30)
[2017-09-15] MEDS ORDERED: MAGNESIUM HYDROXIDE SUSP 30 ML CUP PO PRN (15:30)
[2017-09-15] MEDS ORDERED: SENNOSIDES 8.6 MG TAB PO PRN (15:30)
[2017-09-15] MEDS ORDERED: ONDANSETRON HCL 4 MG/2 ML VIAL IVP PRN (15:30)
[2017-09-15] MEDS ORDERED: SERO100T PO (15:39)
[2017-09-15] MEDS ORDERED: ZALEPLON 10 MG CAP PO PRN (15:45)
[2017-09-15] MEDS: SODIUM CHLOR 0.9% 1000 ML INJ 1,000 ML IV SCH (16:54)
[2017-09-15] MEDS: THIAMINE INJ 100 MG in SODIUM CHLORIDE 0.9% INJ 100 ML IV SCH (16:54)
[2017-09-15] MEDS ORDERED: MULTIVITAMIN INJ 10 ML, FOLIC ACID INJ 1 MG in SODIUM CHLORID 0.9% 500 ML INJ 500 ML IV SCH (17:00)
[2017-09-15] MEDS: GABAPENTIN 300 MG CAP PO SCH (18:14)
[2017-09-15 19:10] LABS: BLOOD, URINE NEG (NEG); COMMENT (UR) CULT NOT INDICATED; CULTURE IF INDICATED CULT NOT INDICATED; GLUCOSE,URINE NEG (NEG); KETONE, URINE NEG (NEG); NITRITE,URINE NEG (NEG); PH, URINE 5.5 (5.0-8.5); SQUAMOUS EPITHELIAL CELL URINE <1 /hpf (0-5); URINE COLOR LIGHT-YELLOW (YELLW/STRAW)
--- NOTE | 2017-09-15 19:35 | EKG ---
Date Performed: 09/15/2017 Time Performed: 16:29:53 PTAGE: 57 years EKG: Sinus rhythm NORMAL ECG No significant change from prior electrocardiogram. PREVIOUS TRACING : 09/15/2017 12.20 DOCTOR: Javi Valenzuela Interpretating Date/Time 09/15/2017 19:33:56
--- NOTE | 2017-09-15 19:43 | EKG ---
Date Performed: 09/15/2017 Time Performed: 12:20:16 PTAGE: 57 years EKG: Sinus rhythm NORMAL ECG No significant change from prior electrocardiogram. PREVIOUS TRACING : 08/30/2017 05.24 DOCTOR: Javi Valenzuela Interpretating Date/Time 09/15/2017 19:42:19
[2017-09-15] MEDS: QUEtiapine FUMARATE 100 MG TAB PO SCH (22:02)
[2017-09-15] MEDS: DOCUSATE SODIUM 50 MG/SENNA 8.6 MG TAB PO SCH (22:02)
[2017-09-16] VITALS (9 sets, daily range): BP systolic 104–151; BP diastolic 71–97; PULSE 68–92; RESP 17–21; TEMP 96.3–98.4; O2SAT 94–100
[2017-09-16] MEDS: SODIUM CHLOR 0.9% 1000 ML INJ 1,000 ML IV SCH ×3 (02:43→22:31)
--- NOTE | 2017-09-16 07:35 | EKG ---
Date Performed: 09/16/2017 Time Performed: 00:13:10 PTAGE: 57 years EKG: Sinus rhythm NORMAL ECG No significant change from prior electrocardiogram. PREVIOUS TRACING : 09/15/2017 16.29 DOCTOR: Javi Valenzuela Interpretating Date/Time 09/16/2017 07:34:15
[2017-09-16 09:07] LABS: BICARBONATE 26.1 MEQ/L (21.0-32.0); POTASSIUM 4.3 MEQ/L (3.5-5.1)
[2017-09-16] MEDS: FLUTICASONE PROPIONATE 50 MCG/ACT 16 GM NASAL SPRAY EACH NARE SCH (09:14)
[2017-09-16] MEDS: CETIRIZINE HCL 10 MG TAB PO SCH (09:15)
[2017-09-16] MEDS: HYDROCHLOROTHIAZIDE 12.5 MG CAP PO SCH (09:15)
[2017-09-16] MEDS: GABAPENTIN 300 MG CAP PO SCH ×3 (09:15→17:10)
[2017-09-16] MEDS: DOCUSATE SODIUM 50 MG/SENNA 8.6 MG TAB PO SCH ×2 (09:15→22:29)
[2017-09-16] MEDS: SERTRALINE HCL 50 MG TAB PO SCH (09:16)
[2017-09-16] MEDS: VALSARTAN 160 MG TAB PO SCH (09:16)
[2017-09-16] MEDS ORDERED: LORazepam 2 MG/ML VIAL IV PUSH ONE (12:00)
--- NOTE | 2017-09-16 12:10 | HHI.HP ---
[facility] Service Family Medicine Primary Care Physician No Primary Care Physician Admission Diagnosis chest pain, r/o ACS, alcohol intoxication, psychiatric illness Diagnoses: (1) Chest pain in adult Diagnosis: Principal (2) Alcohol use disorder Diagnosis: Principal (3) Hypertension Diagnosis: Principal (4) Anxiety Diagnosis: Principal (5) Leg cramping Diagnosis: Principal (6) Dysuria Diagnosis: Principal (7) FEN Diagnosis: Principal International Travel<30 Days: No Contact w/Intl Traveler<30days: No Known Affected Area: No History of Present Illness Ms Sebastian is a 67-year-old female with past medical history of insomnia, anxiety , ADD, hypertension, alcoholism presenting for her right-sided chest pain and left-sided leg pain since the evening before admission. The chest pain is described as a burning and is not worsened with activity or inspiration. Her left leg pain is described as cramping. The pain is usually low-grade like a 4 out of 10, but occasionally she will feel it up to 8 out of 10. Other than the chest pain and leg pain, she also notes she's been a little bit depressed recently and has fallen off the wagon with her sobriety, drinking about 6-8 large glasses of wine daily for the last few days. She denies suicidal ideation or plan, and has never had a suicide attempt in the past. She has no history of myocardial infarction. She was admitted by Psychiatry in August and has follow up arranged as an outpt which she prefers to pursue at this time. This am she has no pain. When questioned about her chest pain , it is never exertional or typical. She describes panic attacks which cause the pain and it radiated down her leg not arm. She has no other sxs suggestive of CAD like pressure, nausea or vomiting. She can get SOB with panic attacks at times. This am she is feeling the effects of alcohol withdrawal. She is tremulous and very anxious and last had ativan at 3 am. She does reports a history of seizures with withdrawal with the last seizure being about 3-5 years ago. She does not want to go back to drinking when she gets home. She is undergoing withdrawal at the time she was seen this am and appears unsafe to discharge home at this time. Review of Systems Other Constitutional: DENIES: Fever, Chills Endocrine: DENIES: Polydipsia, Polyuria Eyes: DENIES: Eye pain, Vision loss Ears, nose, mouth, throat: COMPLAINS OF: Throat pain, DENIES: Nasal discharge, Ear Pain, Running Nose, Sinus Pain, Odynophagia Respiratory: COMPLAINS OF: Cough, DENIES: Wheezing, Sputum production, Shortness of breath Cardiovascular: COMPLAINS OF: Chest pain, DENIES: Palpitations, Dyspnea on Exertion, Lower Extremity Edema Gastrointestinal: COMPLAINS OF: Constipation, DENIES: Abdominal pain, Black stools, Bloody stools, Diarrhea, Nausea, Vomiting Genitourinary: COMPLAINS OF: Dysuria, DENIES: Urinary frequency, Urgency Musculoskeletal: COMPLAINS OF: Muscle aches, DENIES: Joint pain Integumentary: DENIES: Rash Hematologic/lymphatic: DENIES: Bruising Immunologic/allergic: DENIES: Eczema Neurologic: DENIES: Headache, Localized weakness, Paresthesias Psychiatric: COMPLAINS OF: Anxiety, Depression, DENIES: Mood changes, Suicidal Ideation, Homicidal Ideation, Delusions Past Family Social History Past Medical History HTN Alcoholism - per patient previously sober for 17 years Insomnia Anxiety Depression ADD Past Surgical History L knee ACL/PCL/Meniscus repair - 2007 C/S x3 Allergies: Coded Allergies: Penicillins (Verified Allergy, Mild, Hives, 09/15/17) Family History Father - heart disease age 56, age 58 in car wreck Mother - previously healthy, age 60 in car wreck Social History Recently moved to [place] from [place], lives with layo. Stressors at home including her daughter going through a divorce (but daughter lives in [place]). Tob: never smoker Alc: See HPI Drugs: Denies use Physical Exam Vital Signs Vital Signs Date Time Temp Pulse Resp B/P (MAP) Pulse Ox O2 Delivery O2 Flow Rate FiO2 09/16/17 11:16 97.6 92 21 134/84 (101) 100 09/16/17 07:00 96.4 72 18 120/85 (97) 95 09/16/17 04:00 77 09/16/17 03:10 98.4 79 17 104/71 (82) 94 09/16/17 00:30 77 09/15/17 23:26 98.5 76 17 91/58 (69) 96 09/15/17 20:52 97.8 68 16 116/80 (92) 96 09/15/17 20:20 71 09/15/17 18:39 72 09/15/17 17:19 97.8 74 20 125/79 (94) 97 09/15/17 16:58 09/15/17 14:35 85 20 141/93 (109) 100 09/15/17 12:35 92 Room Air 09/15/17 12:35 92 Room Air Physical Exam GENERAL: WDWN thin white woman who appears older than stated age sitting up in bed, uncomfortable, tremulous "all over" today including hands and generalized shaking SKIN: No rashes, ecchymoses or lesions. Cool and dry. No jaundice. HEAD: NC/AT EYES: PERRL. EOMI. No conjunctival injection or drainage. No scleral icterus. ENT: MMM, OP with mild erythema; no tonsillar swelling, or exudate. NECK: Supple, trachea midline. No JVD. CARDIOVASCULAR: NRRR. Normal S1/S2. No MRG RESPIRATORY: CTAB. No crackles or wheezes. Chest wall highly tender to palpation. GASTROINTESTINAL: Abdomen soft, non-distended, non-tender. No hepato- splenomegaly or palpable masses. MUSCULOSKELETAL: Extremities without clubbing, cyanosis, or edema. Mild calf tenderness on BLE, slightly worse LLE. NEUROLOGICAL: Awake and alert. Cranial nerves II through XII grossly intact. Moves all extremities without difficulty. Normal speech. moderate resting tremor but also more tremulous than admission today Laboratory Laboratory Tests Test 09/15/17 12:42 09/15/17 14:55 09/15/17 16:34 09/15/17 20:30 White Blood Count 7.2 Red Blood Count 3.92 Hemoglobin 11.9 Hematocrit 34.8 Mean Corpuscular Volume 89.0 Mean Corpuscular Hemoglobin 30.4 Mean Corpuscular Hemoglobin Concent 34.2 Red Cell Distribution Width 14.5 Platelet Count 429 Mean Platelet Volume 7.5 Neutrophils (%) (Auto) 56.6 Lymphocytes (%) (Auto) 35.3 Monocytes (%) (Auto) 6.2 Eosinophils (%) (Auto) 0.9 Basophils (%) (Auto) 1.0 Neutrophils # (Auto) 4.1 Lymphocytes # (Auto) 2.5 Monocytes # (Auto) 0.4 Eosinophils # (Auto) 0.1 Basophils # (Auto) 0.1 CBC Comment DIFF FINAL Differential Comment D-Dimer Quantitative (PE/DVT) 0.20 Blood Urea Nitrogen 12 Creatinine 0.93 Random Glucose 85 Total Protein 7.3 Albumin 3.9 Calcium Level 8.0 Alkaline Phosphatase 83 Aspartate Amino Transf (AST/SGOT) 17 Alanine Aminotransferase (ALT/SGPT) 18 Total Bilirubin 0.1 Sodium Level 139 Potassium Level 4.2 Chloride Level 104 Carbon Dioxide Level 27.8 Anion Gap 7 Estimat Glomerular Filtration Rate 62 Total Creatine Kinase 118 Creatine Kinase MB 1.3 Troponin I LESS THAN 0.02 LESS THAN 0.02 LESS THAN 0.02 Lipase 77 Ethyl Alcohol Level 235 Urine Color LIGHT-YELLOW Urine Turbidity CLEAR Urine pH 5.5 Urine Specific [place] 1.007 Urine Protein NEG Urine Glucose (UA) NEG Urine Ketones NEG Urine Occult Blood NEG Urine Nitrite NEG Urine Bilirubin NEG Urine Urobilinogen LESS THAN 2.0 Urine Leukocyte Esterase TRACE Urine RBC LESS THAN 1 Urine WBC 1 Urine Squamous Epithelial Cells <1 Microscopic Urinalysis Comment CULT NOT INDICATED Urine Opiates Screen NEG Urine Barbiturates Screen NEG Urine Amphetamines Screen NEG Urine Benzodiazepines Screen NEG Urine Cocaine Screen NEG Urine Cannabinoids Screen NEG Test 09/16/17 08:05 Blood Urea Nitrogen 13 Creatinine 0.88 Random Glucose 85 Calcium Level 8.3 Sodium Level 140 Potassium Level 4.3 Chloride Level 105 Carbon Dioxide Level 26.1 Anion Gap 9 Estimat Glomerular Filtration Rate 66 Result Diagram: 09/15/17 1242 09/16/17 0805 Imaging Last Impressions Chest X-Ray 09/15/17 1217 Signed Impressions: Service Date/Time: Friday, September 15, 2017 12:47 - CONCLUSION: No acute cardiopulmonary abnormality is identified. Duane Pacheco MD Lower Extremity Ultrasound 09/15/17 0000 Signed Impressions: Service Date/Time: Friday, September 15, 2017 12:44 - CONCLUSION: Negative for deep venous thrombosis. Car Mcclelland MD FACR Caprini VTE Risk Assessment Caprini VTE Risk Assessment: No/Low Risk (score <= 1) Caprini Risk Assessment Model Point Value = 1 Point Value = 2 Point Value = 3 Point Value = 5 Age 41-60 Minor surgery BMI > 25 kg/m2 Swollen legs Varicose veins or History of unexplained or recurrent spontaneous Oral contraceptives or hormone replacement Sepsis (< 1 month) Serious lung disease, including pneumonia (< 1 month) Abnormal pulmonary function Acute myocardial infarction Congestive heart failure (< 1 month) History of inflammatory bowel disease Medical patient at bed rest Age 61-74 Arthroscopic surgery Major open surgery (> 45 min) Laparoscopic surgery (> 45 min) Malignancy Confined to bed (> 72 hours) Immobilizing plaster cast Central venous access Age >= 75 History of VTE Family history of VTE Factor V Leiden Prothrombin [id number] Lupus anticoagulant Anticardiolipin antibodies Elevated serum homocysteine Heparin-induced thrombocytopenia Other congenital or acquired thrombophilia Stroke (< 1 month) Elective arthroplasty Hip, pelvis, or leg fracture Acute spinal cord injury (< 1 month) Prophylaxis Regimen Total Risk Factor Score Risk Level Prophylaxis Regimen 0-1 Low Early ambulation 2 Moderate Order ONE of the following: *Sequential Compression Device (SCD) *Heparin 5000 units SQ BID 3-4 Higher Order ONE of the following medications: *Heparin 5000 units SQ TID *Enoxaparin/Lovenox 40 mg SQ daily (WT < 150 kg, CrCl > 30 mL/min) *Enoxaparin/Lovenox 30 mg SQ daily (WT < 150 kg, CrCl > 10-29 mL/min) *Enoxaparin/Lovenox 30 mg SQ BID (WT < 150 kg, CrCl > 30 mL/min) AND/OR *Sequential Compression Device (SCD) 5 or more Highest Order ONE of the following medications: *Heparin 5000 units SQ TID (Preferred with Epidurals) *Enoxaparin/Lovenox 40 mg SQ daily (WT < 150 kg, CrCl > 30 mL/min) *Enoxaparin/Lovenox 30 mg SQ daily (WT < 150 kg, CrCl > 10-29 mL/min) *Enoxaparin/Lovenox 30 mg SQ BID (WT < 150 kg, CrCl > 30 mL/min) AND *Sequential Compression Device (SCD) Assessment and Plan Assessment and Plan 57 year old female with history of alcoholism, hypertension, anxiety/depression presenting with: Problem List: (1) Alcohol use disorder ICD Codes: F10.99 - Alcohol use, unspecified with unspecified alcohol-induced disorder Status: Chronic Plan: Blood alcohol level 200 on admission - Rally pack (multivitamin, thiamine) - [facility] protocol - Case management to assist with resources for discharge planning she is in withdrawal now and is high risk for seizures. will keep in hospital until she is stable for discharge (2) Chest pain in adult ICD Codes: R07.9 - Chest pain, unspecified Status: Acute Plan: Atypical chest pain, reproducible with palpation of chest wall. Possibly costochondritis, but with h/o HTN and family history, MD should be excluded. Initial troponin < 0.02 CBC unremarkable UDS negative - S/p aspirin x1 - Trend EKG, troponin Q4H x3 total - Consider stress test in AM for full ACS r/o, but this could be done as outpatient. she has no history consistent with typical angina and reports this is happening with panic attacks - Treat alcohol use as below - Tylenol PRN pain (avoid NSAIDs due to alcohol use) - Famotidine BID for possible gastritis (3) Hypertension ICD Codes: I10 - Essential (primary) hypertension Plan: BP wnl - Continue home valsartan/HCTZ 160/12.5 mg daily (4) Anxiety ICD Codes: F41.9 - Anxiety disorder, unspecified Status: Chronic Plan: Slightly anxious now, but possibly due to alcohol - Continue home Seroquel 100 mg HS, Gabapentin 300 mg TID, Zoloft 50 mg daily - CIWA as above - Encourage patient to set up with therapist as outpatient (advised her to call her insurance) (5) Leg cramping ICD Codes: R25.2 - Cramp and spasm Status: Acute Plan: LLE ultrasound negative for DVT D-dimer negative - Tylenol for pain as above (6) Dysuria ICD Codes: R30.0 - Dysuria Status: Acute Plan: Dysuria x1 day, no other UTI symptoms - Check urinalysis (7) FEN Plan: Fluids: PO only Electrolytes: Monitor and replete PRN Nutrition: Diet regular DVT: Low risk, no prophylaxis needed Code: FULL CODE Problem Qualifiers (1) Hypertension: Qualified Codes: I10 - Essential (primary) hypertension Rosa Gerber MD Sep 16, 2017 12:10
[2017-09-16] MEDS ORDERED: MULTIVITAMIN INJ 10 ML in SODIUM CHLORID 0.9% 500 ML INJ 500 ML IV SCH (17:00)
[2017-09-16] MEDS ORDERED: FOLIC ACID 1 MG TAB PO SCH (17:00)
[2017-09-16] MEDS: THIAMINE INJ 100 MG in SODIUM CHLORIDE 0.9% INJ 100 ML IV SCH (17:10)
[2017-09-16] MEDS: QUEtiapine FUMARATE 100 MG TAB PO SCH (22:29)
[2017-09-17] VITALS (10 sets, daily range): BP systolic 108–188; BP diastolic 78–118; PULSE 62–75; RESP 16–17; TEMP 97.9–98.1; O2SAT 97–100
[2017-09-17] MEDS ORDERED: FAMOTIDINE 20 MG TAB PO SCH (09:00)
[2017-09-17] MEDS: DOCUSATE SODIUM 50 MG/SENNA 8.6 MG TAB PO SCH (09:00)
[2017-09-17] MEDS ORDERED: KETOROLAC TROMETHAMINE 30 MG/ML (IVP) VIAL IV PUSH ONE (09:45)
[2017-09-17] MEDS ORDERED: CHLO10CA5 PO (10:41)
--- NOTE | 2017-09-17 10:44 | HHI.DCPOC ---
Discharge Care Plan Diagnosis: (1) Chest pain, atypical (2) Alcohol use disorder (3) Anxiety (4) Adjustment disorder with mixed anxiety and depressed mood Goals to Promote Your Health * To prevent worsening of your condition and complications * To maintain your health at the optimal level Directions to Meet Your Goals Take your medications as prescribed Follow your dietary instruction Follow activity as directed Keep your appointments as scheduled Take your immunizations and boosters as scheduled If your symptoms worsen call your PCP, if no PCP go to Urgent Care Center or Emergency Room Smoking is Dangerous to Your Health. Avoid second hand smoke Call the 24-hour hour crisis hotline for domestic abuse at Lenin Jeter MD R2 Sep 17, 2017 10:44 am
[2017-09-17] MEDS: GABAPENTIN 300 MG CAP PO SCH ×2 (10:46→13:52)
[2017-09-17] MEDS: FLUTICASONE PROPIONATE 50 MCG/ACT 16 GM NASAL SPRAY EACH NARE SCH (10:46)
[2017-09-17] MEDS: VALSARTAN 160 MG TAB PO SCH (10:47)
[2017-09-17] MEDS: SERTRALINE HCL 50 MG TAB PO SCH (10:47)
[2017-09-17] MEDS: CETIRIZINE HCL 10 MG TAB PO SCH (10:49)
[2017-09-17] MEDS: HYDROCHLOROTHIAZIDE 12.5 MG CAP PO SCH (10:49)
--- NOTE | 2017-09-17 12:41 | HHI.FPPN ---
Subjective Remarks Overnight no acute events. Vitals as below. Today she feels mostly okay but a little bit shaky. Her chest pain has resolved but she now has some abdominal cramping. Normal BM, no dysuria. No shortness of breath. Afebrile. (Lenin Jeter MD R2) Objective Vitals Vital Signs Date Time Temp Pulse Resp B/P (MAP) Pulse Ox O2 Delivery O2 Flow Rate FiO2 09/17/17 11:43 98.0 68 16 178/98 (124) 99 09/17/17 08:48 97.9 74 16 157/96 (116) 100 09/17/17 04:00 64 09/17/17 03:16 98.1 72 17 108/78 (88) 97 09/17/17 01:10 14 09/17/17 00:20 62 09/17/17 00:02 98.1 74 17 125/85 (98) 98 09/16/17 20:46 98.0 73 18 151/97 (115) 97 09/16/17 20:10 78 09/16/17 15:36 96.3 69 21 115/76 (89) 96 09/16/17 15:11 68 I/O 09/16/17 09/16/17 09/16/17 09/17/17 09/17/17 09/17/17 07:00 15:00 23:00 07:00 15:00 23:00 Intake Total 100 ml Balance 100 ml IV Total 100 ml (Lenin Jeter MD R2) Result Diagram: 09/15/17 1242 09/16/17 0805 Imaging Last Impressions Chest X-Ray 09/15/17 1217 Signed Impressions: Service Date/Time: Friday, September 15, 2017 12:47 - CONCLUSION: No acute cardiopulmonary abnormality is identified. Duane Pacheco MD Lower Extremity Ultrasound 09/15/17 0000 Signed Impressions: Service Date/Time: Friday, September 15, 2017 12:44 - CONCLUSION: Negative for deep venous thrombosis. Car Mcclelland MD FACR Objective Remarks Gen: WDWN adult white female appearing older than stated age. Appears anxious, but NAD Lungs: CTAB, no crackles or wheezes, no distress Heart: NRRR, normal S1/S2, no murmur Abd: Soft, non-distended, mildly tender to palpation diffusely, voluntarily tensing abdominal muscles. No rebound. MSK: No cyanosis or edema Neuro: Mild resting tremor (Lenin Jeter MD R2) A/P Assessment and Plan 57 year old female with history of alcoholism, hypertension, anxiety/depression presenting with: (Lenin Jeter MD R2) Attending Attestation Patient seen and examined. Case reviewed and discussed with the resident team. Agree with plan of care as discussed with me and documented in the resident note. she is determined to quit alcohol and had quit in the past x 17 years (Rosa Gerber MD) Problem List: (1) Alcohol use disorder ICD Codes: F10.99 - Alcohol use, unspecified with unspecified alcohol-induced disorder Status: Chronic Plan: Blood alcohol level 200 on admission Given Ativan once on 09/16 for mildly elevated CIWA score. Has not needed any Ativan for 24 hours. Also given 10 mg chlordiazepoxide on 09/16 which improved symptoms - Discharge home with Librium 10 mg daily for 5 days to prevent withdrawal seizure (2) Chest pain in adult ICD Codes: R07.9 - Chest pain, unspecified Status: Resolved Plan: Atypical chest pain, symptom now resolved Troponins negative x3 CBC unremarkable UDS negative - Tylenol PRN pain (avoid NSAIDs due to alcohol use) (3) Hypertension ICD Codes: I10 - Essential (primary) hypertension Status: Chronic Plan: BP wnl - Continue home valsartan/HCTZ 160/12.5 mg daily (4) Anxiety ICD Codes: F41.9 - Anxiety disorder, unspecified Status: Chronic Plan: Slightly anxious now, but possibly due to alcohol withdrawal - Continue home Seroquel 100 mg HS, Gabapentin 300 mg TID, Zoloft 50 mg daily - Refer to psychiatry as outpatient - Encourage patient to set up with therapist as outpatient (advised her to call her insurance) (5) Leg cramping ICD Codes: R25.2 - Cramp and spasm Status: Resolved Plan: Symptom resolved LLE ultrasound negative for DVT D-dimer negative - Tylenol for pain as above (6) Dysuria ICD Codes: R30.0 - Dysuria Status: Acute Plan: Dysuria x1 day, no other UTI symptoms. Now resolved. - Urinalysis negative for UTI (Lenin Jeter MD R2) Problem Qualifiers (1) Hypertension: Qualified Codes: I10 - Essential (primary) hypertension Lenin Jeter MD R2 Sep 17, 2017 12:41 Rosa Gerber MD Sep 18, 2017 15:30
--- NOTE | 2017-09-17 13:59 | HHI.DS ---
Discharge Summary Admission Date Sep 15, 2017 Discharge Date: Sep 17, 2017 Admitting Diagnosis chest pain, r/o ACS, alcohol intoxication, psychiatric illness (1) Alcohol use disorder Diagnosis: Principal ICD Codes: F10.99 - Alcohol use, unspecified with unspecified alcohol-induced disorder Status: Chronic (2) Chest pain in adult Diagnosis: Principal ICD Codes: R07.9 - Chest pain, unspecified Status: Resolved (3) Hypertension Diagnosis: Secondary Plan: BP wnl - Continue home valsartan/HCTZ 160/12.5 mg daily ICD Codes: I10 - Essential (primary) hypertension Status: Chronic (4) Anxiety Diagnosis: Secondary ICD Codes: F41.9 - Anxiety disorder, unspecified Status: Chronic (5) Leg cramping Diagnosis: Secondary ICD Codes: R25.2 - Cramp and spasm Status: Resolved (6) Dysuria Diagnosis: Secondary ICD Codes: R30.0 - Dysuria Status: Acute Brief History Ms Sebastian is a 67-year-old female with past medical history of insomnia, anxiety , ADD, hypertension, alcoholism presenting for her right-sided chest pain and left-sided leg pain since the evening before admission. The chest pain is described as a burning and is not worsened with activity or inspiration. Her left leg pain is described as cramping. The pain is usually low-grade like a 4 out of 10, but occasionally she will feel it up to 8 out of 10. Other than the chest pain and leg pain, she also notes she's been a little bit depressed recently and has fallen off the wagon with her sobriety, drinking about 6-8 large glasses of wine daily for the last few days. She denies suicidal ideation or plan, and has never had a suicide attempt in the past. She has no history of myocardial infarction. She was admitted by Psychiatry in August and has follow up arranged as an outpt which she prefers to pursue at this time. This am she has no pain. When questioned about her chest pain , it is never exertional or typical. She describes panic attacks which cause the pain and it radiated down her leg not arm. She has no other sxs suggestive of CAD like pressure, nausea or vomiting. She can get SOB with panic attacks at times. This am she is feeling the effects of alcohol withdrawal. She is tremulous and very anxious and last had ativan at 3 am. She does reports a history of seizures with withdrawal with the last seizure being about 3-5 years ago. She does not want to go back to drinking when she gets home. She is undergoing withdrawal at the time she was seen this am and appears unsafe to discharge home at this time. CBC/BMP: 09/15/17 1242 09/16/17 0805 Significant Findings Laboratory Tests Test 09/15/17 12:42 09/15/17 14:55 09/15/17 16:34 09/15/17 20:30 Red Blood Count 3.92 MIL/MM3 (4.00-5.30) Hematocrit 34.8 % (35.0-46.0) Calcium Level 8.0 MG/DL (8.5-10.1) Total Bilirubin 0.1 MG/DL (0.2-1.0) Estimat Glomerular Filtration Rate 62 ML/MIN (>89) Troponin I LESS THAN 0.02 NG/ML LESS THAN 0.02 NG/ML LESS THAN 0.02 NG/ML Ethyl Alcohol Level 235 MG/DL (0-5) Urine Leukocyte Esterase TRACE (NEG) Test 09/16/17 08:05 Calcium Level 8.3 MG/DL (8.5-10.1) Estimat Glomerular Filtration Rate 66 ML/MIN (>89) Imaging Last Impressions Chest X-Ray 09/15/17 1217 Signed Impressions: Service Date/Time: Friday, September 15, 2017 12:47 - CONCLUSION: No acute cardiopulmonary abnormality is identified. Duane Pacheco MD Lower Extremity Ultrasound 09/15/17 0000 Signed Impressions: Service Date/Time: Friday, September 15, 2017 12:44 - CONCLUSION: Negative for deep venous thrombosis. Car Mcclelland MD FACR PE at Discharge Gen: WDWN adult white female appearing older than stated age. Appears anxious, but NAD Lungs: CTAB, no crackles or wheezes, no distress Heart: NRRR, normal S1/S2, no murmur Abd: Soft, non-distended, mildly tender to palpation diffusely, voluntarily tensing abdominal muscles. No rebound. MSK: No cyanosis or edema Neuro: Mild resting tremor Hospital Course Admitted for ACS r/o in setting of atypical chest pain and also blood alcohol 200. Work-up for ACS negative, chest pain likely costochondral. She had leg pain /cramping and mild tachycardia, so work-up for DVT/PE was done which was negative. Due to alcohol level she was placed on CIWA protocol and only required Ativan once over her two day hospital stay. She was deemed stable for discharge with low-dose Librium for a few more days to taper off alcohol. Pt Condition on Discharge: Good Discharge Disposition: Discharge Home Discharge Instructions DIET: Follow Instructions for: As Tolerated, No Restrictions Activities you can perform: Regular-No Restrictions Follow up Referrals: Appointment for Follow Up - 1 Week with [facility],Physician Psychiatry Adult - 2 Weeks New Medications: Chlordiazepoxide HCl (Chlordiazepoxide HCl) 10 Mg Capsule 1 CAP PO DAILY for Alcohol Detox, #5 CAP Continued Medications: Amphetamine-Dextroamphetamine ER 24 HR (Adderall Xr 24 HR) 30 Mg Cap 30 MG PO DAILY PRN for Attention Management, #30 CAP 0 Refills Once daily in the morning. Buspirone (Buspirone) 5 Mg Tab 5 MG PO TID for health for 30 Days, #90 TAB Cetirizine (Cetirizine) 10 Mg Tab 10 MG PO DAILY for health for 30 Days, #30 TAB Fluticasone Nasal [place] (Fluticasone Nasal [place]) 50 Mcg/Act Naspr 2 SPRAY EACH NARE DAILY for health for 30 Days, #1 BOTTLE 50 mcg/spray Gabapentin (Neurontin) 300 Mg Cap 600 MG PO TID for health for 30 Days, #90 CAP Hydrochlorothiazide (Hydrochlorothiazide) 12.5 Mg Cap 12.5 MG PO DAILY for health for 30 Days, #30 CAP Hydroxyzine Pamoate (Vistaril) 50 Mg Cap 100 MG PO BID PRN for ANXIETY, CAP 0 Refills Quetiapine (Seroquel) 100 Mg Tab 100 MG PO HS, #30 TAB 0 Refills Sertraline (Zoloft) 50 Mg Tab 75 MG PO DAILY for health for 30 Days, #45 TAB Valsartan (Diovan) 160 Mg Tab 160 MG PO DAILY for health for 30 Days, #30 TAB Zaleplon (Sonata) 10 Mg Cap 10 MG PO HS PRN for INSOMNIA, CAP 0 Refills Zolpidem (Ambien) 10 Mg Tab 10 MG PO HS for health for 7 Days, #7 TAB Lenin Jeter MD R2 Sep 17, 2017 13:59
[2017-09-17] MEDS ORDERED: amLODIPine BESYLATE 5 MG TAB PO ONE (14:45)
[2017-09-17] MEDS ORDERED: AMLO5TAB2 PO ×2 (14:46→14:48)
[2017-09-19] MEDS ORDERED: THIAMINE HCL 100 MG TAB PO SCH (09:00)
== END 2017-09-17 17:03 | disposition home or self-care (01) | DRG 897 ==
LOC: NEPE 12:04 → NEDA 14:33 → NEPGCP 16:46 → OBSVTOIN 09-16 14:45
PROVIDERS: ADMIT Family Medicine; ATTEND Family Medicine
DX: F10.239 Alcohol dependence with withdrawal, unspecified (principal); I10 Essential (primary) hypertension; M94.0 Chondrocostal junction syndrome [Tietze]; G47.00 Insomnia, unspecified; E78.00 Pure hypercholesterolemia, unspecified; K21.9 Gastro-esophageal reflux disease without esophagitis; R25.2 Cramp and spasm; R30.0 Dysuria; F41.0 Panic disorder [episodic paroxysmal anxiety]; F43.23 Adjustment disorder with mixed anxiety and depressed mood; F90.9 Attention-deficit hyperactivity disorder, unspecified type; Y90.7 Blood alcohol level of 200-239 mg/100 ml; Z82.49 Family history of ischemic heart disease and other diseases of the circulatory system; Z88.0 Allergy status to penicillin
CPT/HCPCS: 71010; 76937; 80048; 80053; 80307; 81001; 82550; 82552; 83690; 84484; 85025; 85379; 93005; 93971; 96365; 96367; G0378; J1885; J2060; J3411; J7030; J7040

== ENCOUNTER 2017-09-29 16:21 | Emergency (ER) | payer BC, OTHER ==
[~2017-09-29 16:21] MED LIST changes: +AMLO5TAB2 PO; +CHLO10CA5 PO; -DIOV160T3 PO; -GABA600T PO; +SERO100T PO
[2017-09-29 16:55] VITALS: BP 172/86; PULSE 101; RESP 18; TEMP 98.9; O2SAT 97
--- NOTE | 2017-09-29 17:06 | PD ---
HPI Chief Complaint: Psychiatric Symptoms Time Seen by Provider: 16:53 Travel History International Travel<30 days: No Contact w/Intl Traveler<30days: No Traveled to known affect area: No History of Present Illness HPI 57 y female presents to emergency department complaining of "exhaustion". Patient is here under Yoo act from [facility] and currently denies suicidal ideations. Patient does admit that she is "at her wits end" patient also states she has been taking her medications as prescribed which include Zoloft, 'ADD medication', diovan, and Sonata. States she also has taken a benzo for 3 months but is unable to tell me what this medication is. States that she will go through withdrawals if she does not have this medication. Patient has had 5-6 large glasses of wine today. According to the BA paperwork, she made several suicidal statements to her boyfriend and had been off of her medication. PFSH Past Medical History Blood Disorders: No Anxiety: Yes Depression: Yes Heart Rhythm Problems: No Cancer: No Cardiac Catheterization: No Cardiovascular Problems: Yes High Cholesterol: Yes Chest Pain: Yes Congestive Heart Failure: No Diabetes: No Diminished Hearing: No Endocrine: No Gastrointestinal Disorders: Yes GERD: Yes Genitourinary: No Hypertension: Yes Immune Disorder: Yes (CHUYITA-POLK) Musculoskeletal: Yes (LEFT KNEE) Neurologic: Yes Psychiatric: Yes (depression, anxiety, ADHD) Reproductive: No Respiratory: No Migraines: Yes Ulcer: Yes Past Surgical History Section: Yes (X3) Coronary Artery Bypass Graft: No Other Surgery: Yes (3 C-SECTIONS) Social History Alcohol Use: Yes (DAILY) Tobacco Use: No Substance Use: No (DENIES) Allergies-Medications (Allergen,Severity, Reaction): Coded Allergies: Penicillins (Verified Allergy, Mild, Hives, 09/15/17) Reported Meds & Prescriptions Reported Meds & Active Scripts Active Macrobid (Nitrofurantoin Monoh/Nitrofur Macro) 100 Mg Cap 100 Mg PO BID 5 Days Amlodipine (Amlodipine Besylate) 5 Mg Tab 5 Mg PO DAILY Fluticasone Nasal [place] 50 Mcg/Act Naspr 2 [place] EACH NARE DAILY 30 Days 50 mcg/spray Hydrochlorothiazide 12.5 Mg Cap 12.5 Mg PO DAILY 30 Days Buspirone (Buspirone HCl) 5 Mg Tab 5 Mg PO TID 30 Days Zoloft (Sertraline HCl) 50 Mg Tab 75 Mg PO DAILY 30 Days Neurontin (Gabapentin) 300 Mg Cap 600 Mg PO TID 30 Days Diovan (Valsartan) 160 Mg Tab 160 Mg PO DAILY 30 Days Cetirizine (Cetirizine HCl) 10 Mg Tab 10 Mg PO DAILY 30 Days Reported Seroquel (Quetiapine Fumarate) 100 Mg Tab 100 Mg PO HS Adderall Xr 24 HR (Amphetamine/Dextroamphetamine) 30 Mg Cap 30 Mg PO DAILY PRN Once daily in the morning. Sonata (Zaleplon) 10 Mg Cap 10 Mg PO HS PRN Vistaril (Hydroxyzine Pamoate) 50 Mg Cap 100 Mg PO BID PRN Review of Systems Except as stated in HPI: all other systems reviewed are Neg Physical Exam Narrative GENERAL: Well-developed well-nourished very anxious SKIN: Focused skin assessment warm/dry. HEAD: Atraumatic. Normocephalic. EYES: Pupils equal and round. No scleral icterus. No injection or drainage. ENT: No nasal bleeding or discharge. Mucous membranes pink and moist. NECK: Trachea midline. No JVD. CARDIOVASCULAR: Regular rate and rhythm. No murmur appreciated. RESPIRATORY: No accessory muscle use. Clear to auscultation. Breath sounds equal bilaterally. GASTROINTESTINAL: Abdomen soft, non-tender, nondistended. Hepatic and splenic margins not palpable. MUSCULOSKELETAL: No obvious deformities. No clubbing. No cyanosis. No edema. NEUROLOGICAL: Awake and alert. No obvious cranial nerve deficits. Motor grossly within normal limits. Normal speech. PSYCHIATRIC: Anxious, difficulty obtaining information secondary to tangential speaking. Data Data Last Documented VS Vital Signs Date Time Temp Pulse Resp B/P (MAP) Pulse Ox O2 Delivery O2 Flow Rate FiO2 09/29/17 18:37 105/55 (72) 09/29/17 16:55 98.9 101 18 97 Room Air Orders Orders Complete Blood Count With Diff (09/29/17 17:01) Comprehensive Metabolic Panel (09/29/17 17:01) Psych Screen (09/29/17 17:01) Drug Screen, Random Urine (09/29/17 17:01) Urinalysis - C+S If Indicated (09/29/17 17:06) Alcohol (Ethanol) (09/29/17 17:06) Salicylates (Aspirin) (09/29/17 17:06) Tylenol (Acetaminophen) (09/29/17 17:06) Urine Culture (09/29/17 17:26) Alcohol Withdrawal Asmt-Ciwa ONCE (09/29/17 17:42) Flumazenil Inj (Romazicon Inj) (09/29/17 17:45) Lorazepam (Ativan) (09/29/17 17:45) Lorazepam Inj (Ativan Inj) (09/29/17 17:45) Lorazepam (Ativan) (09/29/17 17:45) Lorazepam Inj (Ativan Inj) (09/29/17 17:45) Lorazepam Inj (Ativan Inj) (09/29/17 17:45) Lorazepam Inj (Ativan Inj) (09/29/17 17:45) Labs Laboratory Tests Test 09/29/17 17:10 09/29/17 17:26 White Blood Count 8.7 TH/MM3 Red Blood Count 4.11 MIL/MM3 Hemoglobin 12.2 GM/DL Hematocrit 36.4 % Mean Corpuscular Volume 88.4 FL Mean Corpuscular Hemoglobin 29.6 PG Mean Corpuscular Hemoglobin Concent 33.4 % Red Cell Distribution Width 14.8 % Platelet Count 397 TH/MM3 Mean Platelet Volume 7.5 FL Neutrophils (%) (Auto) 56.0 % Lymphocytes (%) (Auto) 34.9 % Monocytes (%) (Auto) 7.1 % Eosinophils (%) (Auto) 1.1 % Basophils (%) (Auto) 0.9 % Neutrophils # (Auto) 4.9 TH/MM3 Lymphocytes # (Auto) 3.0 TH/MM3 Monocytes # (Auto) 0.6 TH/MM3 Eosinophils # (Auto) 0.1 TH/MM3 Basophils # (Auto) 0.1 TH/MM3 CBC Comment DIFF FINAL Differential Comment Blood Urea Nitrogen 28 MG/DL Creatinine 1.18 MG/DL Random Glucose 96 MG/DL Total Protein 7.8 GM/DL Albumin 4.2 GM/DL Calcium Level 8.7 MG/DL Alkaline Phosphatase 86 U/L Aspartate Amino Transf (AST/SGOT) 22 U/L Alanine Aminotransferase (ALT/SGPT) 21 U/L Total Bilirubin 0.2 MG/DL Sodium Level 139 MEQ/L Potassium Level 4.7 MEQ/L Chloride Level 108 MEQ/L Carbon Dioxide Level 21.1 MEQ/L Anion Gap 10 MEQ/L Estimat Glomerular Filtration Rate 47 ML/MIN Salicylates Level 4.6 MG/DL Acetaminophen Level LESS THAN 2.0 MCG/ML Ethyl Alcohol Level 264 MG/DL Urine Color LIGHT-YELLOW Urine Turbidity CLEAR Urine pH 5.5 Urine Specific [place] 1.012 Urine Protein NEG mg/dL Urine Glucose (UA) NEG mg/dL Urine Ketones NEG mg/dL Urine Occult Blood NEG Urine Nitrite NEG Urine Bilirubin NEG Urine Urobilinogen LESS THAN 2.0 MG/DL Urine Leukocyte Esterase MOD Urine RBC 2 /hpf Urine WBC 9 /hpf Urine Squamous Epithelial Cells <1 /hpf Urine Bacteria RARE /hpf Urine Hyaline Casts 1 /lpf Microscopic Urinalysis Comment CULTURE INDICATED Urine Opiates Screen NEG Urine Barbiturates Screen NEG Urine Amphetamines Screen POS Urine Benzodiazepines Screen POS Urine Cocaine Screen NEG Urine Cannabinoids Screen NEG MDM Medical Decision Making Medical Screen Exam Complete: Yes Emergency Medical Condition: Yes Differential Diagnosis Suicidal ideations versus depression versus anxiety Narrative Course 57 y female presents to emergency department complaining of "exhaustion". Patient is here under Yoo act from [facility] and currently denies suicidal ideations. Patient does admit that she is "at her wits end" patient also states she has been taking her medications as prescribed which include Zoloft, 'ADD medication', diovan, and Sonata. States she also has taken a benzo for 3 months but is unable to tell me what this medication is. States that she will go through withdrawals if she does not have this medication. Patient has had 5-6 large glasses of wine today. According to the BA paperwork, she made several suicidal statements to her boyfriend and had been off of her medication. Vital signs stable Physical exam- anxiety, otherwise normal Labs- concerning for developing UTI. Pos benzos- consistent with pt history. Amphet- Pt on 'ADD medication' BUN/Cr- slight elevation from baseline. Pt will be treated for UTI. Macrobid BID for 5 days. Medically cleared to see Psych. Diagnosis Primary Impression: Depression Qualified Codes: F33.1 - Major depressive disorder, recurrent, moderate Additional Impressions: Suicidal ideations UTI (urinary tract infection) Qualified Codes: N30.00 - Acute cystitis without hematuria Scripts Nitrofurantoin Monohydrate Macrocrystals (Macrobid) 100 Mg Cap 100 MG PO BID for Infection for 5 Days, #10 CAP 0 Refills Prov: Roselia Lang MD 09/29/17 Condition: Stable Sandra Terrell Sep 29, 2017 17:06
[2017-09-29 17:33] LABS: AUTOMATED NEUTROPHIL # 4.9 TH/MM3 (1.8-7.7); BASOPHIL # 0.1 TH/MM3 (0-0.2); BASOPHIL % 0.9 % (0.0-2.0); EOSINOPHIL # 0.1 TH/MM3 (0-0.4); EOSINOPHIL % 1.1 % (0.0-4.0); HEMATOCRIT 36.4 % (35.0-46.0); HEMO FLAGS DIFF FINAL; LYMPH % 34.9 % (9.0-44.0); MEAN CELL VOLUME 88.4 FL (80.0-100.0); MEAN CORPUSCULAR HEMOGLOBIN 29.6 PG (27.0-34.0); MEAN CORPUSCULAR HGB CONC 33.4 % (32.0-36.0); MONO % 7.1 % (0.0-8.0); PLATELET COUNT 397 TH/MM3 (150-450); RED BLOOD COUNT 4.11 MIL/MM3 (4.00-5.30); RED CELL DISTRIBUTION WIDTH 14.8 % (11.6-17.2); WHITE BLOOD COUNT 8.7 TH/MM3 (4.0-11.0)
[2017-09-29 17:35] LABS: BACTERIA, URINE RARE /hpf; BLOOD, URINE NEG (NEG); COMMENT (UR) CULTURE INDICATED; CULTURE IF INDICATED CULTURE INDICATED; GLUCOSE,URINE NEG (NEG); HYALINE CAST, URINE 1 /lpf (RARE); KETONE, URINE NEG (NEG); NITRITE,URINE NEG (NEG); PH, URINE 5.5 (5.0-8.5); SQUAMOUS EPITHELIAL CELL URINE <1 /hpf (0-5); URINE COLOR LIGHT-YELLOW (YELLW/STRAW)
[2017-09-29] MEDS ORDERED: FLUMAZENIL 0.5 MG/5 ML VIAL IV PUSH PRN (17:45)
[2017-09-29] MEDS ORDERED: LORazepam 2 MG TAB PO PRN (17:45)
[2017-09-29] MEDS ORDERED: LORazepam 1 MG TAB PO PRN (17:45)
[2017-09-29] MEDS ORDERED: LORazepam 2 MG/ML VIAL IV PUSH PRN ×4 (17:45)
[2017-09-29 17:51] LABS: ACETAMINOPHEN LESS THAN 2.0 MCG/ML (10.0-30.0); ALCOHOL 264 MG/DL (0-5); ALT (GPT) 21 U/L (10-53); ANION GAP 10 MEQ/L (5-15); AST (GOT) 22 U/L (15-37); BICARBONATE 21.1 MEQ/L (21.0-32.0); BLOOD UREA NITROGEN 28 MG/DL (7-18); CHLORIDE 108 MEQ/L (98-107); GLOMERULAR FILTRATION RATE 47 ML/MIN (>89); POTASSIUM 4.7 MEQ/L (3.5-5.1); SODIUM (NA) 139 MEQ/L (136-145)
[2017-09-29 17:52] LABS: ALKALINE PHOSPHATASE 86 U/L (45-117); TOTAL BILIRUBIN ADULT 0.2 MG/DL (0.2-1.0)
[2017-09-29 18:37] VITALS: BP 105/55
[2017-09-29] MEDS ORDERED: MACR100C2 PO (18:44)
[2017-09-29 22:00] VITALS: BP 98/64; PULSE 75; RESP 17; TEMP 96.4; O2SAT 100
[2017-09-30 02:00] VITALS: BP 113/67; PULSE 71; RESP 17; TEMP 97.1; O2SAT 100
== END 2017-09-30 04:49 | disposition short-term general hospital (02) ==
LOC: NEPD 16:21 → NEPJ 09-30 04:49
DX: F33.1 Major depressive disorder, recurrent, moderate (principal); R45.851 Suicidal ideations; N30.00 Acute cystitis without hematuria; Z79.899 Other long term (current) drug therapy
CPT/HCPCS: 80053; 80307; 81001; 85025; 87086; 99285

== ENCOUNTER 2017-10-10 13:54 | Inpatient (IN) | payer BC, OTHER ==
[~2017-10-10] VITALS: Ht 172.7 cm; Wt 70.5 kg
[~2017-10-10 13:54] MED LIST changes: -AMBI10TA PO; -CHLO10CA5 PO; +MACR100C2 PO
[2017-10-10 16:50] LABS: BLOOD, URINE NEG (NEG); GLUCOSE,URINE NEG (NEG); KETONE, URINE NEG (NEG); MUCUS URINE FEW /lpf (OCC); NITRITE,URINE NEG (NEG); PH, URINE 6.5 (5.0-8.5); URINE COLOR LIGHT-YELLOW (YELLW/STRAW)
[2017-10-10 16:52] LABS: COMMENT (UR) CULT NOT INDICATED; CULTURE IF INDICATED CULT NOT INDICATED
[2017-10-10 16:57] LABS: AUTOMATED NEUTROPHIL # 4.5 TH/MM3 (1.8-7.7); BASOPHIL # 0.1 TH/MM3 (0-0.2); BASOPHIL % 0.9 % (0.0-2.0); EOSINOPHIL # 0.1 TH/MM3 (0-0.4); EOSINOPHIL % 0.7 % (0.0-4.0); HEMATOCRIT 38.2 % (35.0-46.0); HEMO FLAGS DIFF FINAL; LYMPH % 36.7 % (9.0-44.0); LYMPHOCYTE # 2.9 TH/MM3 (1.0-4.8); MEAN CORPUSCULAR HGB CONC 32.3 % (32.0-36.0); NEUT % 56.7 % (16.0-70.0); PLATELET COUNT 397 TH/MM3 (150-450); RED BLOOD COUNT 4.24 MIL/MM3 (4.00-5.30); RED CELL DISTRIBUTION WIDTH 15.5 % (11.6-17.2)
[2017-10-10 17:30] LABS: ANION GAP 10 MEQ/L (5-15); AST (GOT) 17 U/L (15-37); BICARBONATE 24.5 MEQ/L (21.0-32.0); BLOOD UREA NITROGEN 18 MG/DL (7-18); CHLORIDE 106 MEQ/L (98-107); GLOMERULAR FILTRATION RATE 66 ML/MIN (>89); POTASSIUM 3.8 MEQ/L (3.5-5.1); SODIUM (NA) 140 MEQ/L (136-145)
[2017-10-10 17:31] LABS: ALT (GPT) 13 U/L (10-53)
[2017-10-10 17:35] LABS: ALKALINE PHOSPHATASE 73 U/L (45-117); TOTAL BILIRUBIN ADULT 0.1 MG/DL (0.2-1.0)
[2017-10-10 17:38] LABS: ALCOHOL 277 MG/DL (0-5); CREATINE KINASE 79 U/L (26-192)
[2017-10-10 17:39] LABS: ACETAMINOPHEN LESS THAN 2.0 MCG/ML (10.0-30.0)
[2017-10-10 18:00] VITALS: BP 139/85; PULSE 98; RESP 16; TEMP 98.2; O2SAT 99
[2017-10-10] MEDS ORDERED: FLUMAZENIL 0.5 MG/5 ML VIAL IV PUSH PRN (18:15)
[2017-10-10] MEDS ORDERED: LORazepam 2 MG/ML VIAL IV PUSH PRN ×4 (18:15)
[2017-10-10] MEDS ORDERED: LORazepam 2 MG TAB PO PRN (18:15)
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
[2017-10-10] MEDS ORDERED: LORazepam 2 MG/ML VIAL IV PUSH ONE (19:00)
[2017-10-10] MEDS: ACETAMINOPHEN 325 MG TAB PO PRN (21:47)
[2017-10-11] MEDS: LORazepam 1 MG TAB PO PRN ×3 (04:29→18:01)
[2017-10-11] MEDS: ACETAMINOPHEN 325 MG TAB PO PRN (04:30)
[2017-10-11 06:20] VITALS: BP 133/79; PULSE 87; RESP 16
[2017-10-11 10:13] VITALS: BP 134/84; PULSE 85; RESP 18; TEMP 98.7; O2SAT 99
[2017-10-11] MEDS ORDERED: ALUMINUM/MAGNESIUM/SIMETH 30 ML CUP PO PRN (10:45)
[2017-10-11] MEDS ORDERED: MAGNESIUM HYDROXIDE SUSP 30 ML CUP PO PRN (10:45)
[2017-10-11] MEDS ORDERED: FLUMAZENIL 0.5 MG/5 ML VIAL IV PUSH PRN (10:45)
[2017-10-11] MEDS ORDERED: LORazepam 1 MG TAB PO PRN (10:45)
[2017-10-11] MEDS ORDERED: LORazepam 2 MG TAB PO PRN (10:45)
[2017-10-11] MEDS ORDERED: LORazepam 2 MG/ML VIAL IV PUSH PRN ×4 (10:45)
[2017-10-11] MEDS ORDERED: LORazepam 2 MG/ML VIAL IM PRN (10:45)
--- NOTE | 2017-10-11 10:59 | HHI.HP ---
Provisional Diagnosis Admission Date Oct 11, 2017 at 10:45 [place] I. Adjustment disorder with depressed mood Certification of Person's Competence To Provide Express and Informed Consent I have personally examined Henny Sebastian , a person being served at [facility] on, Oct 11, 2017 10:51. Express and informed consent means consent voluntarily given in writing, by a competent person, after sufficient explanation and disclosure of the subject matter involved to enable the person to make a knowing and willful decision without any element of force, fraud, deceit, duress, or other form of constraint or coercion. This person is 18 years of age or older, is not now known to be incompetent to consent to treatment with a guardian advocate, and does not have a health care surrogate or proxy currently making medical treatment decisions. I have found this person to be one of the following: [x] Competent to provide express and informed consent, as defined above, for voluntary admission to this facility and is competent to provide express and informed consent for treatment. He/she has the consistent capacity to make well reasoned, willful, and knowing decisions concerning his or her medical or mental health treatment. The person fully and consistently understands the purpose of the admission for examination/placement and is fully capable of personally exercising all rights assured [place] Incompetent to provide express and informed consent to voluntary admission, and this is incompetent to provide express and informed consent to treatment. The person must be transferred to involuntary status and a petition for a guardian advocate filed with the Circuit Court. [] Refusing to provide express and informed consent to voluntary admission but is competent to provide express and informed consent for treatment. The person must be discharged or transferred to involuntary status. Form shall be completed within 24 hours of a person's arrival at the receiving facility and filed in the clinical record of each person: 1. Admitted on a voluntary basis 2. Permitted to provide express and informed consent to his/her own treatment 3. Allowed to transfer from involuntary to voluntary status 4. Prior to permitting a person to consent to his or her own treatment after having been previously found incompetent to consent to treatment. History of Present Illness Capacity: Has Capacity HPI 57-year-old female presents under a [employer] act for making suicidal threats. Patient states that she is very depressed and she has been feeling depressed for over a month. Her symptoms include depressed mood, anhedonia, suicidal ideation, anxiety, insomnia, feelings of hopelessness and helplessness, diminished self-esteem, decreased energy, appetite loss and problems with concentration and memory. Patient admits to binge drinking every 2-3 weeks and states she does this for self-medication purposes. However, patient is noted to be on multiple psychotropic and nonpsychotropic medicines and she is endangering herself by combining these medicines with alcohol. She is also making her depression worse. At this time, she is not able to contract for safety even though she reportedly denied being acutely suicidal when she was evaluated for medical clearance. Her daughter is also concerned about her and called the police to do a wellness check. The daughter lives out of state and the patient has minimal support. Patient was noted to be intoxicated at the time of her Yoo act. Toxicology screen indicates an alcohol level of 227. Review of Systems Psychiatric: COMPLAINS OF: Anxiety, Depression, Suicidal Ideation Except as stated in HPI: all other systems reviewed are Neg Past Psych History Psychological trauma history Unknown for psychological trauma. However, patient has been admitted recently to the [address] Rose. Violence risk - others (6 mos) Minimal Violence risk - self (6 mos) High Substance Abuse History Drugs/Alcohol past 12 months Abusing alcohol Past Family Social History Coded Allergies: Penicillins (Verified Allergy, Mild, Hives, 10/10/17) Active Scripts Nitrofurantoin Monohydrate Macrocrystals (Macrobid) 100 Mg Cap, 100 MG PO BID for Infection for 5 Days, #10 CAP 0 Refills Prov:Roselia Lang MD 09/29/17 Amlodipine (Amlodipine) 5 Mg Tab, 5 MG PO DAILY for Blood Pressure Management, # 30 TAB 0 Refills Prov:Lenin Jeter MD 09/17/17 Fluticasone Nasal [place] (Fluticasone Nasal [place]) 50 Mcg/Act Naspr, 2 SPRAY EACH NARE DAILY for health for 30 Days, #1 BOTTLE 50 mcg/spray Prov:Bernardo Rose MD 09/06/17 Hydrochlorothiazide (Hydrochlorothiazide) 12.5 Mg Cap, 12.5 MG PO DAILY for health for 30 Days, #30 CAP Prov:Bernardo Rose MD 09/06/17 Buspirone (Buspirone) 5 Mg Tab, 5 MG PO TID for health for 30 Days, #90 TAB Prov:Bernardo Rose MD 09/06/17 Sertraline (Zoloft) 50 Mg Tab, 75 MG PO DAILY for health for 30 Days, #45 TAB Prov:Bernardo Rose MD 09/06/17 Gabapentin (Neurontin) 300 Mg Cap, 600 MG PO TID for health for 30 Days, #90 CAP Prov:Bernardo Rose MD 09/06/17 Valsartan (Diovan) 160 Mg Tab, 160 MG PO DAILY for health for 30 Days, #30 TAB Prov:Bernardo Rose MD 09/06/17 Cetirizine (Cetirizine) 10 Mg Tab, 10 MG PO DAILY for health for 30 Days, #30 TAB Prov:Bernardo Rose MD 09/06/17 Reported Medications Quetiapine (Seroquel) 100 Mg Tab, 100 MG PO HS, #30 TAB 0 Refills 09/15/17 Amphetamine-Dextroamphetamine ER 24 HR (Adderall Xr 24 HR) 30 Mg Cap, 30 MG PO DAILY Y for Attention Management, #30 CAP 0 Refills Once daily in the morning. 08/30/17 Zaleplon (Sonata) 10 Mg Cap, 10 MG PO HS Y for INSOMNIA, CAP 0 Refills 08/30/17 Hydroxyzine Pamoate (Vistaril) 50 Mg Cap, 100 MG PO BID Y for ANXIETY, CAP 0 Refills 08/30/17 Current Medications Medications (Trade) Dose Ordered Sig/Kristine Route Start Time Stop Time Status Last Admin (Zofran Odt) 4 mg Q8H PRN PO 10/10/17 18:15 (Tylenol) 650 mg Q4H PRN PO 10/10/17 18:15 10/11/17 04:30 (Motrin) 600 mg Q8H PRN PO 10/10/17 18:15 (Romazicon Inj) 0.2 mg Q1M PRN IV PUSH 10/10/17 18:15 (Ativan) 1 mg Q4H PRN PO 10/10/17 18:15 10/11/17 04:29 (Ativan Inj) 1 mg Q4H PRN IV PUSH 10/10/17 18:15 (Ativan) 2 mg Q2H PRN PO 10/10/17 18:15 10/11/17 08:37 (Ativan Inj) 2 mg Q2H PRN IV PUSH 10/10/17 18:15 10/10/17 21:47 (Ativan Inj) 2 mg Q1H PRN IV PUSH 10/10/17 18:15 (Ativan Inj) 2 mg Q15M PRN IV PUSH 10/10/17 18:15 (Ativan) 1 mg Q6H PRN PO 10/11/17 10:45 UNV (Ativan Inj) 1 mg Q6H PRN IM 10/11/17 10:45 UNV (Tylenol) 650 mg Q4H PRN PO 10/11/17 10:45 UNV (Milk Of Magnesia Liq) 30 ml DAILY PRN PO 10/11/17 10:45 UNV (Mag-Al Plus Susp Liq) 30 ml Q6H PRN PO 10/11/17 10:45 UNV (Romazicon Inj) 0.2 mg Q1M PRN IV PUSH 10/11/17 10:45 UNV (Ativan) 1 mg Q4H PRN PO 10/11/17 10:45 UNV (Ativan Inj) 1 mg Q4H PRN IV PUSH 10/11/17 10:45 UNV (Ativan) 2 mg Q2H PRN PO 10/11/17 10:45 UNV (Ativan Inj) 2 mg Q2H PRN IV PUSH 10/11/17 10:45 UNV (Ativan Inj) 2 mg Q1H PRN IV PUSH 10/11/17 10:45 UNV (Ativan Inj) 2 mg Q15M PRN IV PUSH 10/11/17 10:45 UNV Family Psych History Positive for mood and anxiety disorders Social History Lives alone. Retired from [employer]. Has some family support with daughter. Not currently employed. Abusing alcohol. Patient's Strengths (min. 2) Verbal and has access to healthcare. Physical Exam GENERAL: SKIN: Warm and dry. HEAD: Normocephalic. EYES: No scleral icterus. No injection or drainage. NECK: Supple, trachea midline. No JVD or lymphadenopathy. CARDIOVASCULAR: Regular rate and rhythm without murmurs, gallops, or rubs. RESPIRATORY: Breath sounds equal bilaterally. No accessory muscle use. GASTROINTESTINAL: Abdomen soft, non-tender, nondistended. MUSCULOSKELETAL: No cyanosis, or edema. BACK: Nontender without obvious deformity. No CVA tenderness. Vital Signs Vital Signs Date Time Temp Pulse Resp B/P (MAP) Pulse Ox O2 Delivery O2 Flow Rate FiO2 10/11/17 10:13 98.7 85 18 134/84 (101) 99 Room Air Lab Results Test 10/10/17 15:28 10/10/17 16:00 Blood Urea Nitrogen 18 MG/DL Creatinine 0.89 MG/DL Random Glucose 84 MG/DL Total Protein 7.5 GM/DL Albumin 4.0 GM/DL Calcium Level 8.5 MG/DL Alkaline Phosphatase 73 U/L Aspartate Amino Transf (AST/SGOT) 17 U/L Alanine Aminotransferase (ALT/SGPT) 13 U/L Total Bilirubin 0.1 MG/DL Sodium Level 140 MEQ/L Potassium Level 3.8 MEQ/L Chloride Level 106 MEQ/L Carbon Dioxide Level 24.5 MEQ/L Anion Gap 10 MEQ/L Estimat Glomerular Filtration Rate 66 ML/MIN Total Creatine Kinase 79 U/L Troponin I LESS THAN 0.02 NG/ML Acetaminophen Level LESS THAN 2.0 MCG/ML Ethyl Alcohol Level 277 MG/DL White Blood Count 8.0 TH/MM3 Red Blood Count 4.24 MIL/MM3 Hemoglobin 12.3 GM/DL Hematocrit 38.2 % Mean Corpuscular Volume 90.0 FL Mean Corpuscular Hemoglobin 29.0 PG Mean Corpuscular Hemoglobin Concent 32.3 % Red Cell Distribution Width 15.5 % Platelet Count 397 TH/MM3 Mean Platelet Volume 7.4 FL Neutrophils (%) (Auto) 56.7 % Lymphocytes (%) (Auto) 36.7 % Monocytes (%) (Auto) 5.0 % Eosinophils (%) (Auto) 0.7 % Basophils (%) (Auto) 0.9 % Neutrophils # (Auto) 4.5 TH/MM3 Lymphocytes # (Auto) 2.9 TH/MM3 Monocytes # (Auto) 0.4 TH/MM3 Eosinophils # (Auto) 0.1 TH/MM3 Basophils # (Auto) 0.1 TH/MM3 CBC Comment DIFF FINAL Differential Comment Urine Color LIGHT-YELLOW Urine Turbidity CLEAR Urine pH 6.5 Urine Specific [place] 1.007 Urine Protein NEG mg/dL Urine Glucose (UA) NEG mg/dL Urine Ketones NEG mg/dL Urine Occult Blood NEG Urine Nitrite NEG Urine Bilirubin NEG Urine Urobilinogen LESS THAN 2.0 MG/DL Urine Leukocyte Esterase SMALL Urine RBC LESS THAN 1 /hpf Urine WBC 4 /hpf Urine Mucus FEW /lpf Microscopic Urinalysis Comment CULT NOT INDICATED Salicylates Level LESS THAN 1.7 MG/DL Urine Opiates Screen NEG Urine Barbiturates Screen NEG Urine Amphetamines Screen NEG Urine Benzodiazepines Screen NEG Urine Cocaine Screen NEG Urine Cannabinoids Screen NEG Mental Status Examination Appearance: Appropriate Consciousness: Alert Orientation: x4 Motor Activity: Normal gait Speech: Unremarkable Language: Adequate Fund of Knowledge: Adequate Attention and Concentration: Adequate Memory: Unremarkable Mood: Sad, Anxious Affect: Sad, Anxious Thought Process & Associations: Intact Thought Content: Appropriate Hallucination Type: None Delusion Type: None Suicidal Ideation: Yes Suicidal Plan: No Suicidal Intention: No Homicidal Ideation: No Homicidal Plan: No Homicidal Intention: No Insight: Fair Judgment: Impulsive Assessment & Plan Problem List: (1) Adjustment disorder with depressed mood ICD Codes: F43.21 - Adjustment disorder with depressed mood Assessment & Plan Estimated LOS: days. 57-year-old white female brought in under a Yoo act for making suicidal threats. Although the patient denied being suicidal when she was medically cleared, she admits to this physician that she is very depressed and has had suicidal thoughts. She is also unable to contract for safety. Given these risk factors, including her age, solitary living situation with limited family support, current self-medication with alcohol, she is felt to be at high risk for self-harm and is therefore being admitted. This physician has ordered a CBC and comprehensive metabolic panel to determine if the patient has any infectious process or metabolic process which is causing or contributing to her depression. We are also obtaining a hemoglobin A1c and lipid panel due to the patient's age and possibility of worsening cardiovascular disease. (Patient already has history of cardiovascular disease. ) This physician also ordered a EKG to determine the patient's cardiac conduction status and a hospitalist consult to evaluate these conditions prior to making significant changes in her psychotropic medicines, which may adversely affect her heart. This physician also placed the patient on a CIWA protocol to protect her against withdrawal symptoms. Thyroid-stimulating hormone, vitamin B-12 and vitamin D levels were also ordered to determine if deficiencies in these areas are causing or contributing to the patient's depression. This physician spoke with the patient's nurse, Shante, regarding the patient's recent behavior. Lastly, case management will be involved to assist with further information gathering and disposition planning. Amish Melendrez MD Oct 11, 2017 10:59
[2017-10-11] MEDS ORDERED: PILL SPLITTER OTHER PRN (11:00)
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
[2017-10-11] MEDS: SERTRALINE HCL 50 MG TAB PO SCH (13:54)
[2017-10-11] MEDS: GABAPENTIN 300 MG CAP PO SCH ×2 (13:55→18:01)
[2017-10-11] MEDS: NITROFURANTOIN MONOHYD MACROCR 100 MG CAP PO SCH ×2 (13:55→23:52)
[2017-10-11 15:06] VITALS: BP 152/87; PULSE 95; RESP 18; TEMP 97.7; O2SAT 100
[2017-10-11] MEDS: CETIRIZINE HCL 10 MG TAB PO SCH (15:38)
[2017-10-11] MEDS: HYDROCHLOROTHIAZIDE 12.5 MG CAP PO SCH (15:38)
[2017-10-11] MEDS: busPIRone HCL 5 MG TAB PO SCH ×2 (15:38→18:01)
--- NOTE | 2017-10-11 19:17 | EKG ---
Date Performed: 10/10/2017 Time Performed: 15:14:19 PTAGE: 57 years EKG: SINUS TACHYCARDIA Since previous tracing, no significant change noted ABNORMAL RHYTHM ECG PREVIOUS TRACING : 09/16/2017 00.13 DOCTOR: Henna Frausto Interpretating Date/Time 10/11/2017 19:16:00
[2017-10-11] MEDS: QUEtiapine FUMARATE 100 MG TAB PO SCH (21:09)
[2017-10-11] MEDS: IBUPROFEN 600 MG TAB PO PRN (21:47)
[2017-10-12 05:44] VITALS: BP 117/66; PULSE 73; RESP 18; TEMP 97.5; O2SAT 97
[2017-10-12] MEDS: ONDANSETRON ODT 4 MG TAB PO PRN (06:42)
[2017-10-12] MEDS: LORazepam 1 MG TAB PO PRN ×3 (06:42→21:05)
[2017-10-12 08:54] LABS: BASOPHIL # 0.1 TH/MM3 (0-0.2); BASOPHIL % 0.8 % (0.0-2.0); EOSINOPHIL # 0.1 TH/MM3 (0-0.4); EOSINOPHIL % 2.3 % (0.0-4.0); HEMATOCRIT 40.1 % (35.0-46.0); HEMO FLAGS DIFF FINAL; LYMPH % 37.8 % (9.0-44.0); LYMPHOCYTE # 2.3 TH/MM3 (1.0-4.8); MEAN CELL VOLUME 90.2 FL (80.0-100.0); MEAN CORPUSCULAR HEMOGLOBIN 30.2 PG (27.0-34.0); MEAN CORPUSCULAR HGB CONC 33.4 % (32.0-36.0); MONO % 9.3 % (0.0-8.0); NEUT % 49.8 % (16.0-70.0); PLATELET COUNT 396 TH/MM3 (150-450); RED BLOOD COUNT 4.44 MIL/MM3 (4.00-5.30); RED CELL DISTRIBUTION WIDTH 15.2 % (11.6-17.2)
[2017-10-12] MEDS: FLUTICASONE PROPIONATE 50 MCG/ACT 16 GM NASAL SPRAY EACH NARE SCH (09:00)
[2017-10-12 09:30] LABS: ALT (GPT) 15 U/L (10-53); ANION GAP 9 MEQ/L (5-15); AST (GOT) 23 U/L (15-37); BICARBONATE 24.7 MEQ/L (21.0-32.0); BLOOD UREA NITROGEN 17 MG/DL (7-18); CHLORIDE 101 MEQ/L (98-107); GLOMERULAR FILTRATION RATE 65 ML/MIN (>89); POTASSIUM 3.9 MEQ/L (3.5-5.1); SODIUM (NA) 135 MEQ/L (136-145)
[2017-10-12] MEDS: VALSARTAN 160 MG TAB PO SCH (09:44)
[2017-10-12] MEDS: MULTIVITAMINS/MINERALS THERAPEUTIC TAB PO SCH (09:45)
[2017-10-12] MEDS: THIAMINE HCL 100 MG TAB PO SCH (09:45)
[2017-10-12] MEDS: HYDROCHLOROTHIAZIDE 12.5 MG CAP PO SCH (09:45)
[2017-10-12] MEDS: busPIRone HCL 5 MG TAB PO SCH ×3 (09:45→17:59)
[2017-10-12] MEDS: GABAPENTIN 300 MG CAP PO SCH ×3 (09:45→17:59)
[2017-10-12] MEDS: SERTRALINE HCL 50 MG TAB PO SCH (09:45)
[2017-10-12] MEDS: CETIRIZINE HCL 10 MG TAB PO SCH (09:46)
[2017-10-12] MEDS: amLODIPine BESYLATE 5 MG TAB PO SCH (09:46)
[2017-10-12] MEDS: FOLIC ACID 1 MG TAB PO SCH (09:46)
[2017-10-12 09:57] LABS: ALKALINE PHOSPHATASE 80 U/L (45-117); HDL CHOLESTEROL 98.4 MG/DL (40.0-60.0); LDL CHOLESTEROL 153 MG/DL (0-99); TOTAL BILIRUBIN ADULT 0.4 MG/DL (0.2-1.0)
[2017-10-12] MEDS: NITROFURANTOIN MONOHYD MACROCR 100 MG CAP PO SCH ×2 (12:21→23:06)
--- NOTE | 2017-10-12 12:50 | HHI.PYPN ---
Subjective Remarks Patient seen for follow-up, chart reviewed. Discussion with nursing staff reported that patient continues on CIWA protocol with low scores, was noted to participate in group therapy today. Patient found eating lunch was able to participate in interview with advertising copywriter and nurse. Patient is a 57-year-old woman, domiciled with fianc, unemployed with 3 adult children recently moved to [place] 4 months ago from [place], with past psychiatric history of depression, anxiety, alcohol use disorder, ADHD, with multiple psychiatric hospitalizations, no previous suicide attempts and was hospitalized at [facility] in August 2017, who was brought in under Yoo for suicidal ideation since the police were called for a well check activated by her daughter outpatient intoxicated with a BAL of 277. Patient during initial psychiatric evaluation was noted to be very depressed for the past month, drinking 2-3 times a week daughter had called for wellness check was brought to the hospital. Patient was found sitting in the room able to cooperate with interview. Patient states that she had a high difficult for the past 3 weeks along with rehabilitation disorder with her boyfriend. Patient states that after her last hospitalization her plan was to engage in rehabilitation as well as therapy with her boyfriend but had worsened had been resistant to therapy. She states that she having increasing anxiety recently due to these relationship stress. Patient states that prior to her admission she states that 2 days ago she spoke to her youngest daughter recently about how depressed she had been feeling which prompted the daughter to call 911 for wellness check. Patient also mentions that recently she has been tearful due to from her boyfriend recently started drinking again about a month after her last discharge which she was increasingly drinking more about 4 glasses of wine at a time 3-4 times a week. Patient states that she had been feeling depressed and unsure whether she had expressed suicidal ideations to her daughter to her intoxication. Patient at this time continues to be noted to be very tearful and stating that she has no place to go home as she no longer will be living with a boyfriend. Discussion with contemplation over several living facility as a residential homeless reviewed which she states she' ll be considering. Review of Systems Except as stated in HPI: all other systems reviewed are Neg Mental Status Examination Appearance: Appropriate Consciousness: Alert Orientation: x4 Motor Activity: Normal gait Speech: Unremarkable Language: Adequate Fund of Knowledge: Adequate Attention and Concentration: Adequate Memory: Unremarkable Mood: Sad, Anxious Affect: Sad, Anxious Thought Process & Associations: Intact Thought Content: Appropriate Hallucination Type: None Delusion Type: None Suicidal Ideation: Yes Suicidal Plan: No Suicidal Intention: No Homicidal Ideation: No Homicidal Plan: No Homicidal Intention: No Insight: Fair Judgment: Impulsive Results Labs Labs reviewed. Test 10/12/17 07:10 White Blood Count 6.0 TH/MM3 Red Blood Count 4.44 MIL/MM3 Hemoglobin 13.4 GM/DL Hematocrit 40.1 % Mean Corpuscular Volume 90.2 FL Mean Corpuscular Hemoglobin 30.2 PG Mean Corpuscular Hemoglobin Concent 33.4 % Red Cell Distribution Width 15.2 % Platelet Count 396 TH/MM3 Mean Platelet Volume 7.8 FL Neutrophils (%) (Auto) 49.8 % Lymphocytes (%) (Auto) 37.8 % Monocytes (%) (Auto) 9.3 % Eosinophils (%) (Auto) 2.3 % Basophils (%) (Auto) 0.8 % Neutrophils # (Auto) 3.0 TH/MM3 Lymphocytes # (Auto) 2.3 TH/MM3 Monocytes # (Auto) 0.6 TH/MM3 Eosinophils # (Auto) 0.1 TH/MM3 Basophils # (Auto) 0.1 TH/MM3 CBC Comment DIFF FINAL Differential Comment Blood Urea Nitrogen 17 MG/DL Creatinine 0.90 MG/DL Random Glucose 78 MG/DL Total Protein 7.9 GM/DL Albumin 4.2 GM/DL Calcium Level 9.4 MG/DL Alkaline Phosphatase 80 U/L Aspartate Amino Transf (AST/SGOT) 23 U/L Alanine Aminotransferase (ALT/SGPT) 15 U/L Total Bilirubin 0.4 MG/DL Sodium Level 135 MEQ/L Potassium Level 3.9 MEQ/L Chloride Level 101 MEQ/L Carbon Dioxide Level 24.7 MEQ/L Anion Gap 9 MEQ/L Estimat Glomerular Filtration Rate 65 ML/MIN Triglycerides Level 213 MG/DL Cholesterol Level 294 MG/DL LDL Cholesterol 153 MG/DL HDL Cholesterol 98.4 MG/DL Cholesterol/HDL Ratio 2.98 RATIO Vitamin B12 Level 356 PG/ML 25-Hydroxy Vitamin D Total 26.2 ng/ML Thyroid Stimulating Hormone 3rd Gen 6.110 uIU/ML Vitals/IOs Vital Signs Date Time Temp Pulse Resp B/P (MAP) Pulse Ox O2 Delivery O2 Flow Rate FiO2 10/12/17 05:44 97.5 73 18 117/66 (83) 97 10/11/17 10:13 Room Air Assessment & Plan Problem List: (1) Adjustment disorder with depressed mood ICD Codes: F43.21 - Adjustment disorder with depressed mood Assessment & Plan Patient at this time continues to endorse depressive symptoms along with recent suicide ideations. Patient is accepting of increasing alcohol use and the recommendations for rehabilitation intervention. Patient to continue current treatment for now. Continue to monitor mood and behavior. Patient provided with a packet with informational possible residential facilities and sober living facilities. Discharge planning in progress Justification for Cont. Inpt. At risk for decompensation if at lower level of care. Discharge Planning Possible referral to sober living or residential facilities upon psychiatric stabilization. Bernardo Rose MD Oct 12, 2017 12:50
[2017-10-12 17:41] LABS: HEMOGLOBIN A1a 1.6 %; HEMOGLOBIN Ao 83.4 %; HEMOGLOBIN LA1C 2.3 %; HEMOGLOBIN P3 4.3 %
--- NOTE | 2017-10-12 17:41 | HHI.PR ---
Subjective Remarks admits to recent relapse still tremulous no nausea or vomiting Objective Vitals Vital Signs Date Time Temp Pulse Resp B/P (MAP) Pulse Ox O2 Delivery O2 Flow Rate FiO2 10/12/17 05:44 97.5 73 18 117/66 83 97 Result Diagram: 10/12/17 0710 10/12/17 0710 Objective Remarks awake and alert, mildly tremulous lungs clear regular rhythm abdomensoft extremities no edema gait steady, no ataxia A/P Assessment and Plan 57-year-old female with a past medical history of hypertension, hyperlipidemia and depression/anxiety presents under Yoo act for suicidal threats. 1. Suicidal ideation Management per psychiatry 2. Hypertension Patient's blood pressure well controlled on current regimen Continue home amlodipine, valsartan, HCTZ Monitor BP trend 3. Hyperlipidemia Patient not currently taking a statin dietitian consult- low cholesterol diet 4. Acute alcohol intoxication- mild DTs Patient's alcohol level 277 on admission Patient denies heavy alcohol use although actual usage remains unclear- now admits has a recent relapse. counselled Thiamine/folate/multivitamin continue CIWA protocol 5. Mildly elevated TSH. recheck in 6 weeks Sara Reardon MD Oct 12, 2017 17:41
[2017-10-12 18:30] VITALS: BP 144/82; PULSE 106; RESP 18; TEMP 98; O2SAT 96
[2017-10-12] MEDS: QUEtiapine FUMARATE 100 MG TAB PO SCH (20:27)
[2017-10-12] MEDS: IBUPROFEN 600 MG TAB PO PRN (21:04)
[2017-10-12 22:30] VITALS: BP 92/50; PULSE 104; RESP 18; TEMP 97.4; O2SAT 96
[2017-10-13] MEDS: ACETAMINOPHEN 325 MG TAB PO PRN (05:18)
[2017-10-13 05:37] VITALS: BP 104/62; PULSE 72; RESP 16; TEMP 97.5; O2SAT 99
[2017-10-13] MEDS: HYDROCHLOROTHIAZIDE 12.5 MG CAP PO SCH (09:00)
[2017-10-13] MEDS: amLODIPine BESYLATE 5 MG TAB PO SCH (09:00)
[2017-10-13] MEDS: VALSARTAN 160 MG TAB PO SCH (09:00)
[2017-10-13] MEDS: FLUTICASONE PROPIONATE 50 MCG/ACT 16 GM NASAL SPRAY EACH NARE SCH (09:00)
[2017-10-13] MEDS: THIAMINE HCL 100 MG TAB PO SCH (09:03)
[2017-10-13] MEDS: MULTIVITAMINS/MINERALS THERAPEUTIC TAB PO SCH (09:03)
[2017-10-13] MEDS: CETIRIZINE HCL 10 MG TAB PO SCH (09:04)
[2017-10-13] MEDS: GABAPENTIN 300 MG CAP PO SCH ×3 (09:04→18:03)
[2017-10-13] MEDS: FOLIC ACID 1 MG TAB PO SCH (09:04)
[2017-10-13] MEDS: busPIRone HCL 5 MG TAB PO SCH ×3 (09:04→18:04)
[2017-10-13] MEDS: SERTRALINE HCL 50 MG TAB PO SCH (09:04)
[2017-10-13] MEDS: IBUPROFEN 600 MG TAB PO PRN (09:06)
[2017-10-13] MEDS: LORazepam 1 MG TAB PO PRN ×2 (09:06→18:04)
--- NOTE | 2017-10-13 10:41 | PD.TTN ---
Patient Problems 1. Discharge planning 2. Medication compliance 3. Knowledge deficit 4. Lack of coping skills Progress Toward Goals Provider Present: Dr. Neal Rose Provider Input: Dr. Rose's held his treatment team meeting to discuss patient's treatment plan, discharge and medication. Patient is compliant, continue with treatment Nurse(s) Input: Patient's nurse Jacqueline reports patient is medication compliant, presents med seeking, had high blood pressure last night, pleasant, cooperative Psychiatric Counselors Present: [facility] Psych Therapist Input: Patient seen today. Patient presents depressed, cooperative but guarded, tired, has limited insight into her substance abuse. Patient reports she has called several alcohol rehab's but either has left a message to contact patient or was not the type of treatment patient is looking for. [facility] was mentioned to patient to try. Patient does not present internally stimulated or with any delusional content. Patient is eating and sleeping ok. Patient is medication compliant. Patient's speech is clear and organized. Patient's correction and short term memory appear in tact. Group Spec/RT/OT/MATHEWS Present: BISI [facility]ays Group Spec/RT/OT/MATHEWS Input: Patient attended 1 [employer] group and was encouraged to participate but refused. [facility] Oct 13, 2017 10:41
[2017-10-13] MEDS ORDERED: PADIMATE (CHAPSTICK) 4.5 GM TUBE TOPICAL PRN (12:45)
[2017-10-13] MEDS ORDERED: LORazepam 1 MG TAB PO PRN (12:45)
[2017-10-13] MEDS: NITROFURANTOIN MONOHYD MACROCR 100 MG CAP PO SCH (13:11)
--- NOTE | 2017-10-13 14:22 | HHI.PYPN ---
Subjective Remarks Patient seen for follow-up, chart reviewed. Discussion with nursing staff reported that the patient noted to ask for Ativan. Patient was found sitting on bed, calm and cooperative. She states that she had been speaking with her daughter in finding a rehabilitation program and has been calling several sober living facilities. She states her mood as being "very depressed" with vague SI and noted to be tearful at times. She states feeling "like my legs are in cement". She reports sleeping ok, tried to exercise a bit and was happy to have met with the legal operations manager today. Review of Systems Except as stated in HPI: all other systems reviewed are Neg Mental Status Examination Appearance: Appropriate Consciousness: Alert Orientation: x4 Motor Activity: Normal gait Speech: Unremarkable Language: Adequate Fund of Knowledge: Adequate Attention and Concentration: Adequate Memory: Unremarkable Mood: Sad Affect: Sad, Anxious Thought Process & Associations: Intact, Linear Thought Content: Appropriate Hallucination Type: None Delusion Type: None Suicidal Ideation: Yes Suicidal Plan: No Suicidal Intention: No Homicidal Ideation: No Homicidal Plan: No Homicidal Intention: No Insight: Fair Judgment: Impulsive Results Vitals/IOs Vital Signs Date Time Temp Pulse Resp B/P (MAP) Pulse Ox O2 Delivery O2 Flow Rate FiO2 10/13/17 05:37 97.5 72 16 104/62 (76) 99 104/62 (76) 10/11/17 10:13 Room Air Assessment & Plan Problem List: (1) Adjustment disorder with depressed mood ICD Codes: F43.21 - Adjustment disorder with depressed mood Assessment & Plan She continues to endorse depressive symptoms, vague suicidal ideations. We'll increase sertraline to 100 mg by mouth daily, lorazepam will be changed to every 8 hours when necessary anxiety as patient has tendency to request Ativan frequently and to avoid dependence PRN interval will be increased. Patient will continue to have hydroxyzine available for when necessary anxiety. OT consult placed. Continue rest of medications. Discharge planning in progress Justification for Cont. Inpt. At risk for further decompensation if at lower level of care Discharge Planning Patient to be referred to a residential facility for sober living. Bernardo Rose MD Oct 13, 2017 14:22
--- NOTE | 2017-10-13 15:03 | HHI.PR ---
Subjective Remarks no urinary complaints up and active making several phone calls Objective Vitals Vital Signs Date Time Temp Pulse Resp B/P (MAP) Pulse Ox O2 Delivery O2 Flow Rate FiO2 10/13/17 05:37 97.5 72 16 104/62 (76) 99 104/62 (76) 10/13/17 03:45 16 10/12/17 22:30 97.4 104 18 96 92/50 (64) 10/12/17 18:30 98.0 106 18 144/82 (102) 96 Result Diagram: 10/12/17 0710 10/12/17 0710 Objective Remarks awake and alert, no tremors lungs clear regular rhythm abdomen soft, good bowel sounds extremities no edema gait steady, no ataxia A/P Assessment and Plan 57-year-old female with a past medical history of hypertension, hyperlipidemia and depression/anxiety presents under Yoo act for suicidal threats. 1. Suicidal ideation Management per psychiatry 2. Hypertension Patient's blood pressure well controlled on current regimen Continue home amlodipine, valsartan, HCTZ Monitor BP trend 3. Hyperlipidemia Patient not currently taking a statin dietitian consult- low cholesterol diet 4. Acute alcohol intoxication- mild DTs- improved Patient's alcohol level 277 on admission Patient denies heavy alcohol use although actual usage remains unclear- now admits has a recent relapse. counselled Thiamine/folate/multivitamin continue CIWA protocol 5. Mildly elevated TSH. recheck in 6 weeks review meds- DC Nitrofurantoin CM - ff for discharge disposition Sara Reardon MD Oct 13, 2017 15:03
[2017-10-13 17:00] VITALS: BP 103/95; PULSE 116; RESP 16; TEMP 98.1; O2SAT 98
[2017-10-13] MEDS: QUEtiapine FUMARATE 100 MG TAB PO SCH (20:25)
[2017-10-14] MEDS: LORazepam 1 MG TAB PO PRN ×2 (03:34→11:44)
[2017-10-14] MEDS: IBUPROFEN 600 MG TAB PO PRN ×2 (03:34→21:57)
[2017-10-14 06:20] VITALS: BP 97/55; PULSE 71; RESP 16; TEMP 97.8; O2SAT 98
[2017-10-14] MEDS: GABAPENTIN 300 MG CAP PO SCH ×3 (10:18→17:33)
[2017-10-14] MEDS: MULTIVITAMINS/MINERALS THERAPEUTIC TAB PO SCH (10:18)
[2017-10-14] MEDS: HYDROCHLOROTHIAZIDE 12.5 MG CAP PO SCH (10:18)
[2017-10-14] MEDS: THIAMINE HCL 100 MG TAB PO SCH (10:19)
[2017-10-14] MEDS: FOLIC ACID 1 MG TAB PO SCH (10:19)
[2017-10-14] MEDS: busPIRone HCL 5 MG TAB PO SCH ×3 (10:19→17:33)
[2017-10-14] MEDS: SERTRALINE HCL 100 MG TAB PO SCH (10:19)
[2017-10-14] MEDS: CETIRIZINE HCL 10 MG TAB PO SCH (10:19)
[2017-10-14] MEDS: amLODIPine BESYLATE 5 MG TAB PO SCH (10:19)
[2017-10-14] MEDS: VALSARTAN 160 MG TAB PO SCH (10:19)
[2017-10-14] MEDS: FLUTICASONE PROPIONATE 50 MCG/ACT 16 GM NASAL SPRAY EACH NARE SCH (10:20)
[2017-10-14] MEDS: ACETAMINOPHEN 325 MG TAB PO PRN (11:45)
--- NOTE | 2017-10-14 14:45 | HHI.PYPN ---
Subjective Remarks Patient seen for follow up; chart reviewed. Patient found lying in hospital bed , cooperative. He "I've been better". Patient states that she had been crying all day and feeling more depressed due to her significant other having served her with legal papers keeping her from returning back to the home. Patient states that she had difficulty time sleeping this evening as roommate has a one- to-one sitter which kept her up. Patient states that she is feeling more anxious and depressed now due to the possibility of her returning back to her similarly the other has been decreased as well as feeling that there are there could have been other ways which she could have handled their separation. Patient states that she continues to have vague suicidal ideations and is trying to stay positive. Patient reports having kept in contact with her daughter which this of some support to her. Patient at this time is considering moving back to her daughter for support later this month. Review of Systems Except as stated in HPI: all other systems reviewed are Neg Mental Status Examination Appearance: Appropriate Consciousness: Alert Orientation: x4 Motor Activity: Normal gait Speech: Unremarkable Language: Adequate Fund of Knowledge: Adequate Attention and Concentration: Adequate Memory: Unremarkable Mood: Sad Affect: Sad, Anxious Thought Process & Associations: Intact, Linear Thought Content: Appropriate Hallucination Type: None Delusion Type: None Suicidal Ideation: Yes Suicidal Plan: No Suicidal Intention: No Homicidal Ideation: No Homicidal Plan: No Homicidal Intention: No Insight: Fair Judgment: Impulsive Results Vitals/IOs Vital Signs Date Time Temp Pulse Resp B/P (MAP) Pulse Ox O2 Delivery O2 Flow Rate FiO2 10/14/17 06:20 97.8 71 16 97/55 (69) 98 10/11/17 10:13 Room Air Assessment & Plan Problem List: (1) Adjustment disorder with depressed mood ICD Codes: F43.21 - Adjustment disorder with depressed mood Assessment & Plan Patient at this time continues to note to be depressed along with vague suicide ideations but denies any at time of interview. Patient had to be more affected and dysphoric due to recently being served legal papers which will keep her from returning back to the home. Patient states that she had been attending psychotherapy group which has been helpful. Patient had recent increase in sertraline yesterday and therefore will continue current treatment for now. Patient has not requested further Ativan despite having changed interval to every 8 hours. Patient had been counseled on importance of absence from alcohol use as well as engagement in rehabilitation program which she acknowledged. Continue to monitor mood and behavior. Continue to encourage patient to participate in groups activities on the unit. Discharge planning in progress Justification for Cont. Inpt. At risk for further decompensation if a lower level of care Discharge Planning Patient is discharged to hotel or to sober living facility once psychiatrically stable. Bernardo Rose MD Oct 14, 2017 14:45
--- NOTE | 2017-10-14 15:29 | HHI.PR ---
Subjective Remarks feels good, no complain Objective Vitals Vital Signs Date Time Temp Pulse Resp B/P (MAP) Pulse Ox O2 Delivery O2 Flow Rate FiO2 10/14/17 06:20 97.8 71 16 97/55 (69) 98 10/13/17 17:00 98.1 116 16 103/95 (98) 98 Result Diagram: 10/12/17 0710 10/12/17 0710 Objective Remarks awake and alert, no tremors lungs clear regular rhythm abdomen soft, good bowel sounds extremities no edema gait steady, no ataxia A/P Assessment and Plan 57-year-old female with a past medical history of hypertension, hyperlipidemia and depression/anxiety presents under Yoo act for suicidal threats. 1. Suicidal ideation Management per psychiatry 2. Hypertension- some SBPs in the 90s Patient's blood pressure well controlled on current regimen Continue valsartan, HCTZ will DC amlodpipine and monitor Monitor BP trend 3. Hyperlipidemia Patient not currently taking a statin dietitian consult- low cholesterol diet 4. Acute alcohol intoxication- mild DTs- improved Patient's alcohol level 277 on admission Patient denies heavy alcohol use although actual usage remains unclear- now admits has a recent relapse. counselled Thiamine/folate/multivitamin continue CIWA protocol 5. Mildly elevated TSH. recheck in 6 weeks review meds- DC Nitrofurantoin CM - ff for discharge disposition Sara Reardon MD Oct 14, 2017 15:29
[2017-10-14 20:38] VITALS: BP 150/75; PULSE 103; RESP 17; TEMP 98.3; O2SAT 99
[2017-10-14] MEDS: QUEtiapine FUMARATE 100 MG TAB PO SCH (21:18)
[2017-10-14] MEDS: ONDANSETRON ODT 4 MG TAB PO PRN (21:56)
[2017-10-15 06:42] VITALS: BP 93/55; PULSE 74; RESP 17; TEMP 97.6; O2SAT 97
[2017-10-15] MEDS: IBUPROFEN 600 MG TAB PO PRN (08:09)
[2017-10-15] MEDS: HYDROCHLOROTHIAZIDE 12.5 MG CAP PO SCH (08:09)
[2017-10-15] MEDS: FOLIC ACID 1 MG TAB PO SCH (08:09)
[2017-10-15] MEDS: THIAMINE HCL 100 MG TAB PO SCH (08:10)
[2017-10-15] MEDS: busPIRone HCL 5 MG TAB PO SCH ×2 (08:10→12:59)
[2017-10-15] MEDS: LORazepam 1 MG TAB PO PRN ×2 (08:10→14:58)
[2017-10-15] MEDS: MULTIVITAMINS/MINERALS THERAPEUTIC TAB PO SCH (08:10)
[2017-10-15] MEDS: CETIRIZINE HCL 10 MG TAB PO SCH (08:10)
[2017-10-15] MEDS: FLUTICASONE PROPIONATE 50 MCG/ACT 16 GM NASAL SPRAY EACH NARE SCH (08:10)
[2017-10-15] MEDS: SERTRALINE HCL 100 MG TAB PO SCH (08:10)
[2017-10-15] MEDS: GABAPENTIN 300 MG CAP PO SCH ×2 (08:10→12:59)
[2017-10-15] MEDS: VALSARTAN 160 MG TAB PO SCH (08:10)
[2017-10-15] MEDS ORDERED: NEUR300C PO (13:58)
[2017-10-15] MEDS ORDERED: CETI10 PO (13:58)
[2017-10-15] MEDS ORDERED: DIOV160T6 PO (13:58)
[2017-10-15] MEDS ORDERED: BUSP5TAB PO (13:58)
[2017-10-15] MEDS ORDERED: SERO100T PO (13:58)
[2017-10-15] MEDS ORDERED: HYDR12.57 PO (13:58)
[2017-10-15] MEDS ORDERED: SERT-129 PO (13:58)
[2017-10-15] MEDS ORDERED: THIA100 PO (13:59)
[2017-10-15] MEDS ORDERED: THERM PO (13:59)
[2017-10-15] MEDS ORDERED: FOLI1TAB6 PO (13:59)
--- NOTE | 2017-10-15 14:10 | HHI.DS ---
Psychiatry Discharge Summary Inpatient Psychiatric care?: Yes Advance Directive: No Reason Not Provided: Provided to patient Mental Health AdvanceDirective: No Health Care Proxy: No Admission Admission Date Oct 11, 2017 at 10:45 Admission Diagnosis: (1) Adjustment disorder with depressed mood ICD Code: F43.21 - Adjustment disorder with depressed mood (2) Alcohol use disorder ICD Code: F10.99 - Alcohol use, unspecified with unspecified alcohol-induced disorder Brief History 57-year-old female presents under a Yoo act for making suicidal threats. Patient states that she is very depressed and she has been feeling depressed for over a month. Her symptoms include depressed mood, anhedonia, suicidal ideation, anxiety, insomnia, feelings of hopelessness and helplessness, diminished self-esteem, decreased energy, appetite loss and problems with concentration and memory. Patient admits to binge drinking every 2-3 weeks and states she does this for self-medication purposes. However, patient is noted to be on multiple psychotropic and nonpsychotropic medicines and she is endangering herself by combining these medicines with alcohol. She is also making her depression worse. At this time, she is not able to contract for safety even though she reportedly denied being acutely suicidal when she was evaluated for medical clearance. Her daughter is also concerned about her and called the police to do a wellness check. The daughter lives out of state and the patient has minimal support. Patient was noted to be intoxicated at the time of her Yoo act. Toxicology screen indicates an alcohol level of 227. Tobacco Use In Past 30 Days: No Tobacco Past 30 Days Alcohol Use: 2-4 Times Per Month Hospital Course Patient is a 57-year-old woman, domiciled with fianc, unemployed with 3 adult children recently moved to [place] 4 months ago from [place], with past psychiatric history of depression, anxiety, alcohol use disorder, ADHD , with multiple psychiatric hospitalizations, no previous suicide attempts and was hospitalized at [facility] in August 2017, who was brought in under [employer] for suicidal ideation since the police were called for a well check activated by her daughter outpatient intoxicated with a BAL of 277. Patient was restarted on sertraline 50mg and titrated up to 100mg PO daily, buspirone 5mg PO TID, quetiapine 100mg PO HS, gabapentin 600mg PO TID which she tolerated well. Patient was noted to have improved mood, noted to be more hopeful, goal- directed into achieving sobriety, no longer endorsing SI. Patient while on the unit was participating in groups and activities. Upon discharge, patient was future oriented, hopeful and motivated to achieve sobriety and agreed to be transferred directly a residential treatment facility. She denies SI, HI, AVH or delusions. Patient provided supportive psychotherapy. Patient agreed to continue treatment and adhere to outpatient follow up for continuity of care. Patient advised to call 911 or go to nearest ED in case of emergency. Patient agreed with plan. Results Blood Pressure 93 / 55 Vital Signs Date Time Temp Pulse Resp B/P (MAP) Pulse Ox O2 Delivery O2 Flow Rate FiO2 10/15/17 06:42 97.6 74 17 93/55 (68) 97 10/11/17 10:13 Room Air Laboratory Results Test 10/12/17 07:10 Cholesterol Level 294 MG/DL (120-200) HDL Cholesterol 98.4 MG/DL (40.0-60.0) Hemoglobin A1c 5.9 % (4.3-6.0) LDL Cholesterol 153 MG/DL (0-99) Triglycerides Level 213 MG/DL (42-150) Summary of Procedures None Pending results at discharge: No Medications # of Antipsychotic meds at D/C: 0 Approp Antipsych med options 1 - Minimum of three failed multiple trials of monotherapy. 2 - Documented plan to taper to monotherapy due to previous use of multiple meds OR cross-taper in progress at D/C. 3 - Documentation of augmentation of Clozapine. 4 - Justification other than those listed in allowable values 1-3, document here : Discharge Discharge Date: Oct 15, 2017 Discharge Diagnosis: (1) Adjustment disorder with depressed mood ICD Code: F43.21 - Adjustment disorder with depressed mood (2) Alcohol use disorder ICD Code: F10.99 - Alcohol use, unspecified with unspecified alcohol-induced disorder Status: Chronic Pt Condition on Discharge: Stable Discharge Disposition: Discharge Home Discharge Instructions Diet Instructions: Heart Healthy Diet Activities you can perform: Regular-No Restrictions Scheduled Appointment: [place] Appointment Date: Oct 18, 2017 Appointment Time: 7:30am Discharge Time > 30 minutes Mental Status Examination Appearance: Appropriate Consciousness: Alert Orientation: x4 Motor Activity: Normal gait Speech: Unremarkable Language: Adequate Fund of Knowledge: Adequate Attention and Concentration: Adequate Memory: Unremarkable Mood: Appropriate Affect: Appropriate, Anxious Thought Process & Associations: Intact, Goal directed, Linear Thought Content: Appropriate Hallucination Type: None Delusion Type: None Suicidal Ideation: No Suicidal Plan: No Suicidal Intention: No Homicidal Ideation: No Homicidal Plan: No Homicidal Intention: No Insight: Fair Judgment: Impulsive Discharge/Advance Care Plan Health Problems: (1) Adjustment disorder with depressed mood Goals to promote your health * To prevent worsening of your condition and complications * To maintain your health at the optimal level Directions to meet your goals Take your medications as prescribed Follow your dietary instruction Follow activity as directed Keep your appointments as scheduled Take your immunizations and boosters as scheduled If your symptoms worsen call your PCP, if no PCP go to Urgent Care Center or Emergency Room For 31/05 questions related to your inpatient stay or results of tests pending at discharge, please contact Dr. Bernardo Rose at Smoking is Dangerous to Your Health. Avoid second hand smoking Bernardo Rose MD Oct 15, 2017 14:10
== END 2017-10-15 17:20 | disposition home or self-care (01) | DRG 881 ==
LOC: NEDAMB 13:54 → NEDA 10-11 10:45 → H260 10-11 14:15
PROVIDERS: ADMIT Student in an Organized Health Care Education/Training Program; ATTEND Student in an Organized Health Care Education/Training Program
DX: F43.21 Adjustment disorder with depressed mood (principal); F10.231 Alcohol dependence with withdrawal delirium; Z91.14 Patient's other noncompliance with medication regimen; F10.229 Alcohol dependence with intoxication, unspecified; Y90.7 Blood alcohol level of 200-239 mg/100 ml; I10 Essential (primary) hypertension; F90.9 Attention-deficit hyperactivity disorder, unspecified type; K21.9 Gastro-esophageal reflux disease without esophagitis; E78.00 Pure hypercholesterolemia, unspecified; G47.00 Insomnia, unspecified
CPT/HCPCS: 80053; 80061; 80307; 81001; 82306; 82550; 82607; 83036; 84443; 84484; 85025; 93005; 99285; J2060

== ENCOUNTER 2017-10-20 22:41 | Emergency (ER) | payer BC, OTHER ==
[~2017-10-20] VITALS: Ht 165.1 cm; Wt 70.0 kg
[~2017-10-20 22:41] MED LIST changes: -AMLO5TAB2 PO; +FOLI1TAB6 PO; -MACR100C2 PO; +SERT-129 PO; +THERM PO; +THIA100 PO; -ZOLO50TA PO
[2017-10-20 22:46] VITALS: PULSE 108; RESP 18; TEMP 97.9; O2SAT 94
[2017-10-20 22:53] VITALS: BP 115/74
[2017-10-20] MEDS ORDERED: diphenhydrAMINE HCL 50 MG/ML VIAL IM ONE (23:00)
[2017-10-20] MEDS ORDERED: HALOPERIDOL LACTATE 5 MG/ML AMP IM ONE (23:00)
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
[2017-10-21 01:02] VITALS: BP 125/75; PULSE 78; RESP 18; O2SAT 99
[2017-10-21] MEDS ORDERED: LORazepam 2 MG TAB PO ONE ×3 (02:15→12:30)
[2017-10-21] MEDS ORDERED: QUEtiapine FUMARATE 100 MG TAB PO ONE (02:15)
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
[2017-10-21] MEDS ORDERED: SODIUM CHLOR 0.9% 1000 ML INJ 1,000 ML IV ONE (03:00)
[2017-10-21 03:01] LABS: AUTOMATED NEUTROPHIL # 14.8 TH/MM3 (1.8-7.7); BASOPHIL # 0.1 TH/MM3 (0-0.2); BASOPHIL % 0.6 % (0.0-2.0); HEMATOCRIT 35.2 % (35.0-46.0); HEMO FLAGS DIFF FINAL; LYMPH % 10.8 % (9.0-44.0); LYMPHOCYTE # 1.8 TH/MM3 (1.0-4.8); MEAN CELL VOLUME 89.2 FL (80.0-100.0); MEAN CORPUSCULAR HGB CONC 33.6 % (32.0-36.0); MONO % 2.2 % (0.0-8.0); NEUT % 86.4 % (16.0-70.0); PLATELET COUNT 423 TH/MM3 (150-450); RED BLOOD COUNT 3.95 MIL/MM3 (4.00-5.30); RED CELL DISTRIBUTION WIDTH 15.2 % (11.6-17.2); WHITE BLOOD COUNT 17.1 TH/MM3 (4.0-11.0)
[2017-10-21 03:17] LABS: ALT (GPT) 18 U/L (10-53); ANION GAP 19 MEQ/L (5-15); AST (GOT) 20 U/L (15-37); BICARBONATE 18.4 MEQ/L (21.0-32.0); BLOOD UREA NITROGEN 28 MG/DL (7-18); CHLORIDE 103 MEQ/L (98-107); GLOMERULAR FILTRATION RATE 43 ML/MIN (>89); POTASSIUM 4.1 MEQ/L (3.5-5.1); SODIUM (NA) 140 MEQ/L (136-145)
[2017-10-21 03:19] LABS: ALKALINE PHOSPHATASE 94 U/L (45-117); TOTAL BILIRUBIN ADULT 0.3 MG/DL (0.2-1.0)
[2017-10-21 03:21] LABS: ALCOHOL 169 MG/DL (0-5)
[2017-10-21 07:15] VITALS: BP 122/76; PULSE 97; RESP 20; O2SAT 98
[2017-10-21] MEDS ORDERED: ACETAMINOPHEN 325 MG TAB PO ONE (09:45)
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
== END 2017-10-21 12:55 | disposition home or self-care (01) ==
LOC: NEPE 22:41
DX: S01.01XA Laceration without foreign body of scalp, initial encounter (principal); S09.90XA Unspecified injury of head, initial encounter; F41.9 Anxiety disorder, unspecified; F10.20 Alcohol dependence, uncomplicated; E78.00 Pure hypercholesterolemia, unspecified; K21.9 Gastro-esophageal reflux disease without esophagitis; I10 Essential (primary) hypertension; R56.9 Unspecified convulsions; Y04.2XXA Assault by strike against or bumped into by another person, initial encounter
CPT/HCPCS: 12001; 70450; 72125; 80053; 80307; 85025; 96372; 99285; J1200; J1630; J7030